=== PATIENT | male | born 1945 | race American Indian/Alaskan Native ===

== ENCOUNTER 2017-06-13 09:52 | Inpatient (IN) | payer MEDICARE ==
[2017-06-07 08:30] VITALS: BMI 20.5
--- NOTE | 2017-06-13 10:46 | CP.PCM.HP ---
History of Present Illness - History of Present Illness History of Present Illness: 71M s/p left TKR [address] Abbott, patient had acute hemarthrosis with INR 9.0, likely developed sepsis, and now has radiographic evidence of loosening. Plan is for removal of prosthesis, biopsy, and implantation of spacer. Present on Admission - Present on Admission Any Indicators Present on Admission: Yes History of DVT/PE: Yes - Notes: Notes:: PE in november, on coumadin Review of Systems - Review of Systems All systems: reviewed and no additional remarkable complaints except - Musculoskeletal Musculoskeletal: As Per HPI Past Patient History - Past Medical History & Family History Past Medical History?: Yes Past Family History: Reviewed and not pertinent - Past Social History Smoking Status: Never Smoked - CARDIAC Hx Cardiac Disorders: Yes Hx Congestive Heart Failure: Yes (2002) Hx Peripheral Edema: Yes - PULMONARY Hx Respiratory Disorders: Yes (pulmonary hypertension) Hx Pneumonia: Yes (aug 2016) - NEUROLOGICAL Hx Neurological Disorder: Yes Hx Dizziness: Yes Hx Meningitis: Yes (1999) - HEENT Hx HEENT Problems: Yes Hx Cataracts: Yes (bilat iol) - RENAL Hx Chronic Kidney Disease: No - ENDOCRINE/METABOLIC Hx Endocrine Disorders: No - HEMATOLOGICAL/ONCOLOGICAL Hx Blood Disorders: Yes Hx Blood Transfusions: Yes Hx Blood Transfusion Reaction: No Hx Sickle Cell Disease: Yes - INTEGUMENTARY Hx Dermatological Problems: No - MUSCULOSKELETAL/RHEUMATOLOGICAL Hx Musculoskeletal Disorders: Yes Hx Osteoarthritis: Yes - GASTROINTESTINAL Hx Gastrointestinal Disorders: No - GENITOURINARY/GYNECOLOGICAL Hx Genitourinary Disorders: No - PSYCHIATRIC Hx Psychophysiologic Disorder: No - SURGICAL HISTORY Hx Surgeries: Yes Hx Cataract Extraction: Yes Hx Cardiac Catheterization: Yes Hx Herniorrhaphy: Yes (left ing) Hx Joint Replacement: Yes (left knee) Other/Comment: cochlear implant left ear - ANESTHESIA Hx Anesthesia: Yes Hx Anesthesia Reactions: No Hx Malignant Hyperthermia: No Has any member of the family had a problem w/ anesthesia?: No Meds Allergies/Adverse Reactions: Allergies Allergy/AdvReac Type Severity Reaction Status Date / Time cephalexin [From Keflex] Allergy Intermediate ITCHING Verified 06/07/17 08:31 Physical Exam - Constitutional Appears: Well, No Acute Distress - Back Exam Additional comments: Left knee: + effusion skin intact no erythema +ROm ankle/toes +DP/PT pulses Results - Impressions Impression: labs and clearance med/cardio on chart, reviewed Assessment & Plan (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
[2017-06-13 11:29] LABS: INR 1.3
[2017-06-13] MEDS ORDERED: Lactated Ringer's 1,000 ML IV ONE ×3 (11:48→19:01)
[2017-06-13] MEDS ORDERED: Propofol 10 mg/ml Inj (20 ML) ONE (11:49)
[2017-06-13] MEDS ORDERED: Midazolam 2 MG/2 ML VIAL ONE ×2 (11:49→12:02)
[2017-06-13] MEDS: Bacitracin 150,000 UNIT in Sodium Chloride 0.9% Irrig 3,000 ML IR SCH (12:00)
[2017-06-13] MEDS ORDERED: Etomidate 20 mg/10ml Inj IV ONE (12:02)
[2017-06-13] MEDS ORDERED: Succinylcholine Chloride 20 mg/ml Syr (5 ml) IV ONE (12:02)
[2017-06-13] MEDS ORDERED: Phenylephrine 10 mg/ml Inj ONE (12:02)
[2017-06-13] MEDS ORDERED: Vancomycin 1 gm/D5W 200 ml 1 GM/200 ML BAG IVPB ONE (12:20)
[2017-06-13] MEDS ORDERED: Rocuronium 10 mg/ml (5 ml) ONE (12:20)
[2017-06-13] MEDS ORDERED: Vancomycin 1 g Inj ONE ×4 (12:26→13:09)
[2017-06-13] MEDS ORDERED: Tobramycin 1.2 gm Inj ONE ×2 (12:27→13:08)
[2017-06-13] MEDS ORDERED: Bupivacaine Liposomal Inj 20 ml INJ ONE (12:30)
[2017-06-13 13:09] LABS: FLUID TYPE SYNOVIAL FLUID
[2017-06-13] MEDS ORDERED: Sodium Chloride 0.9% 60 ML IV ONE (13:47)
[2017-06-13] MEDS ORDERED: Esmolol 100 mg/10ml Inj IV ONE (13:58)
[2017-06-13] MEDS ORDERED: Bupivacaine 0.5% Inj(30mL) ONE (14:50)
[2017-06-13] MEDS ORDERED: Thrombin Topical 20,000 Intl Units Spray Kit TOP ONE (14:57)
[2017-06-13] MEDS ORDERED: Neostigmine Methylsulfate 3mg/3ml Syringe IV ONE (15:29)
--- NOTE | 2017-06-13 16:20 | PCM.SURG1 ---
Surgeon's Initial Post Op Note - Surgeon's Notes Surgeon: Zuri Abbott MD Tank Officer: Darryl Rebollar PA-C Type of Anesthesia: General Endo Anesthesia Administered By: Dr. Balderrama Pre-Operative Diagnosis: Left knee prosthetic joint infection Operative Findings: 5 WBC per HPF tissue specimen. fluid cell count and gram stain done intra op. tourniquet 131min @300mmHg Post-Operative Diagnosis: same Operation Performed: explant of left knee prosthesis. implantation of antibiotic spacer. wound vac application Specimen/Specimens Removed: tissue cultures. fluid cultures. lab called to add fungal cultures Estimated Blood Loss: EBL {In ML}: 250 Blood Products Given: N/A Drains Used: Hemovac Post-Op Condition: Fair Date of Surgery/Procedure: 06/13/17 Time of Surgery/Procedure: 16:39
[2017-06-13] MEDS ORDERED: Morphine Monoject Barrel PCA 1mg/ml IV PRN (16:21)
[2017-06-13] MEDS ORDERED: HYDROmorphone 0.5 mg/0.5 ml ISec IVP PRN ×2 (16:23→16:28)
[2017-06-13 16:54] LABS: HEMATOCRIT 24.6 % (35.0-51.0)
--- NOTE | 2017-06-13 17:29 | CP.PCM.CON ---
History of Present Illness - History of Present Illness History of Present Illness: INFECTIOUS DISEASE CONSULT; HPI; 71-year-old male with history of CHF, PHT,,ASHD, OA, HISTORY OF LEFT TKR 5 YEARS AGO, with history of PE in November 2016, admitted at [facility] on by Dr. Cedillo for removal of left knee prosthesis, biopsy and implantation of spacer. Patient has history of PE in , and was placed on anticoagulation and he developed acute hemarthrosis with INR of 9.0 as reported and likely developed sepsis. Patient presently now has evidence of loosening off his prosthesis and was admitted for removal OF INFECTED PROSTHESIS Patient is POST-OPT 06/13/17 with explantation of left knee prosthesis and placement off antibiotic spacer and wound VAC. Synovial fluid aspirate in OR was consistent WBC of more than 15,000 with 93% neutrophils, and many RBCs. Gram stain showed many WBCs with the yeast positive in the synovial. Fluid aspirate. Infectious disease consultation requested by Dr. Cedillo for evaluation of LT. KNEE PROSTHETIC JOINT INFECTION. CONCERN FOR ? FUNGAL SUPERINFECTION. PATIENT RECEIVED 1 DOSE OF VANCOMYCIN 1 G IN THE OR AND PRESENTLY GETTING 1 G EVERY 12 HOURLY. PAST MEDICAL HISTORY; ABOVE. PSH; BILATERAL CATARACT SURGERY, COCHLEAR IMPLANT LEFT EAR, LEFT TOTAL KNEE REPLACEMENT 5 YEARS AGO. FAMILY HISTORY; NONCONTRIBUTORY MEDS; SEE MARS. ALLERGY. CEPHALEXIN. SOCIAL HISTORY; DENIES SMOKING OR DRINKING. Review of Systems - Constitutional Constitutional: absent: Fever - EENT Nose/Mouth/Throat: Dry Mouth - Cardiovascular Cardiovascular: absent: Chest Pain, Dyspnea - Respiratory Respiratory: absent: Cough - Gastrointestinal Gastrointestinal: absent: Abdominal Pain, Nausea, Vomiting - Genitourinary Genitourinary: absent: Hematuria, Freq UTI - Neurological Neurological: Abnormal Hearing (HISTORY OF LEFT COCHLEAR IMPLANT.) - Hematologic/Lymphatic Hematologic: As Per HPI. absent: Easy Bleeding, Easy Bruising Past Patient History - Past Medical History & Family History Past Medical History?: Yes Past Family History: Reviewed and not pertinent - Past Social History Smoking Status: Never Smoked - CARDIAC Hx Cardiac Disorders: Yes Hx Congestive Heart Failure: Yes (2002) Hx Peripheral Edema: Yes - PULMONARY Hx Respiratory Disorders: Yes (pulmonary hypertension) Hx Pneumonia: Yes (aug 2016) - NEUROLOGICAL Hx Neurological Disorder: Yes Hx Dizziness: Yes Hx Meningitis: Yes (1999) - HEENT Hx HEENT Problems: Yes Hx Cataracts: Yes (bilat iol) - RENAL Hx Chronic Kidney Disease: No - ENDOCRINE/METABOLIC Hx Endocrine Disorders: No - HEMATOLOGICAL/ONCOLOGICAL Hx Blood Disorders: Yes Hx Blood Transfusions: Yes Hx Blood Transfusion Reaction: No Hx Sickle Cell Disease: Yes - INTEGUMENTARY Hx Dermatological Problems: No - MUSCULOSKELETAL/RHEUMATOLOGICAL Hx Musculoskeletal Disorders: Yes Hx Osteoarthritis: Yes - GASTROINTESTINAL Hx Gastrointestinal Disorders: No - GENITOURINARY/GYNECOLOGICAL Hx Genitourinary Disorders: No - PSYCHIATRIC Hx Psychophysiologic Disorder: No - SURGICAL HISTORY Hx Surgeries: Yes Hx Cataract Extraction: Yes Hx Cardiac Catheterization: Yes Hx Herniorrhaphy: Yes (left ing) Hx Joint Replacement: Yes (left knee) Other/Comment: cochlear implant left ear - ANESTHESIA Hx Anesthesia: Yes Hx Anesthesia Reactions: No Hx Malignant Hyperthermia: No Has any member of the family had a problem w/ anesthesia?: No Meds Allergies/Adverse Reactions: Allergies Allergy/AdvReac Type Severity Reaction Status Date / Time cephalexin [From Keflex] Allergy Intermediate ITCHING Verified 06/07/17 08:31 - Medications Medications: Current Medications Acetaminophen (Tylenol 325mg Tab) 650 mg PO Q4 PRN PRN Reason: Fever 101 degrees fahrenheit Docusate Sodium (Colace) 100 mg PO BID [facility] Enoxaparin Sodium (Lovenox) 40 mg SC DAILY [facility] Furosemide (Lasix) 20 mg PO DAILY [facility] Home Med (Bosentan [Tracleer]) 125 mg PO BID [facility] Hydromorphone HCl (Dilaudid) 0.5 mg IVP Q5M PRN PRN Reason: Pain, severe (8-10) Stop: 06/13/17 18:23 Last Admin: 06/13/17 17:02 Dose: 0.5 mg Hydromorphone HCl (Dilaudid) 0.5 mg IVP Q4H PRN PRN Reason: Pain, severe (8-10) Sodium Chloride (Sodium Chloride 0.9%) 1,000 mls @ 80 mls/hr IV .[id number] [facility] Vancomycin/Sodium Chloride (Vancomycin 1 Gm/Ns 200 Ml) 1 gm in 200 mls @ 200 mls/hr IVPB Q12H [facility] Stop: 06/19/17 02:01 Micafungin Sodium 100 mg/ (Sodium Chloride) 100 mls @ 100 mls/hr IV Q24H [facility] Aztreonam 1 gm/ Sodium (Chloride) 100 mls @ 100 mls/hr IVPB Q12H [facility] Morphine Sulfate/Sodium Chloride (Morphine [place]oo Monoject Barrel) 30 mg IV Q4H PRN; Protocol PRN Reason: Pain, severe (8-10) Stop: 06/14/17 16:21 Ondansetron HCl (Zofran Inj) 4 mg IVP ONCE PRN PRN Reason: Nausea/Vomiting Stop: 06/13/17 18:25 Oxycodone/Acetaminophen (Percocet 5/325 Mg Tab) 1 tab PO Q4 PRN PRN Reason: Pain, moderate (4-7) Stop: 06/16/17 16:29 Warfarin Sodium (Coumadin) 5 mg PO 1800 [facility] Stop: 06/13/17 18:01 Physical Exam - Constitutional Appears: Well (left knee/leg in soft cast+ve michelle), No Acute Distress - Head Exam Head Exam: NORMAL INSPECTION - Eye Exam Eye Exam: PERRL - ENT Exam ENT Exam: Normal Oropharynx - Respiratory Exam Respiratory Exam: Clear to Auscultation Bilateral - Cardiovascular Exam Cardiovascular Exam: REGULAR RHYTHM, +S1, +S2 - GI/Abdominal Exam GI & Abdominal Exam: Normal Bowel Sounds, Soft - Extremities Exam Extremities exam: Positive for: normal capillary refill, pedal pulses present. Negative for: calf tenderness Additional comments: left knee and leg in softcast +ve wound vac - Neurological Exam Neurological exam: Altered (drowsy) - Skin Skin Exam: Dry, Warm Results - Vital Signs Recent Vital Signs: Last Vital Signs Temp 97 F L 06/13/17 10:09 Pulse 86 06/13/17 10:09 Resp 16 06/13/17 10:09 BP 97/59 L 06/13/17 10:09 Pulse Ox 97 06/13/17 10:09 - Labs Result Diagrams: 06/13/17 17:59 Labs: Laboratory Results - last 24 hr 06/13/17 06/13/17 06/13/17 11:09 11:09 13:06 Hgb Hct PT 14.8 H INR 1.3 Fluid Type Synovial fluid Synovial WBC 86319.0 H Synovial RBC 37477.0 H Synovial Neutrophils 93.0 H Synovial Lymphocytes 2.0 H Synov Monos/Macrophage 3 H Synovial Fluid Comment TEST NOT PERFORMED Blood Type O POSITIVE Antibody Screen Negative 06/13/17 16:45 Hgb 8.2 L Hct 24.6 L PT INR Fluid Type Synovial WBC Synovial RBC Synovial Neutrophils Synovial Lymphocytes Synov Monos/Macrophage Synovial Fluid Comment Blood Type Antibody Screen Assessment & Plan (1) Infection of prosthetic left knee joint Assessment and Plan: S/P EXPLANTATION OF LEFT KNEE PROSTHESIS, IMPLANTATION OF ANTIBIOTIC SPACER, WOUND VAC 06/13/17. synovial fluid wbc's 15,318, 93% neutrophils .RBCs 77,990. Gram stain synovial fluid aspirated; many WBCs, yeast positive. Pancultures esr crp. Liver profile, CBC, BMP in a.m. Continue IV Vanco 1 g every 12 hourly 06/13/17. Add IV Mycamine 100 mg IV piggyback every 24 hourly.06/13/17 Add IV Azactam 1 g every 12 hourly for gram-negative coverage for now. 06/13/17. Follow-up Vanco trough prior to the fourth dose in a.m. and keep between 10 and 20. follow-up renal functions closely. Follow-up cultures to adjust antibiotics and antifungals. Case discussed with with ms Brenda Phipps-orthopedic staff. Status: Acute (2) PHT (pulmonary hypertension) Status: Acute (3) Osteoarthritis Status: Acute
[2017-06-13] MEDS ORDERED: BOSENTAN 125 MG PO SCH (18:00)
[2017-06-13 18:19] LABS: BASO % 0.4 % (0.0-2.0); EOS # 0.3 K/uL (0.0-0.7); EOS % 3.5 % (0.0-4.0); HEMATOCRIT 24.5 % (35.0-51.0); LYMPH # 2.3 K/uL (1.0-4.3); LYMPH % 30.2 % (20.0-40.0); MEAN CELL VOLUME 72.9 fL (80.0-94.0); MEAN CORPUSCULAR HEMOGLOBIN 24.5 pg (27.0-31.0); MEAN CORPUSCULAR HGB CONC 33.6 g/dL (33.0-37.0); MEAN PLATELET VOLUME 8.7 fL (7.2-11.7); MONO # 0.5 K/uL (0.0-0.8); MONO % 6.7 % (0.0-10.0); NRBC % 0.6 % (0.0-2.0); RED CELL DISTRIBUTION WIDTH 25.4 % (11.5-14.5)
[2017-06-13 18:20] LABS: WHITE BLOOD COUNT 7.5 K/uL (4.8-10.8)
[2017-06-13 18:33] LABS: ALB/GLOB RATIO 1.1 (1.0-2.1); BILIRUBIN,DIRECT 0.3 mg/dL (0.0-0.4); TOTAL PROTEIN 6.4 g/dL (6.3-8.3)
[2017-06-13] MEDS: Micafungin 100 MG in Sodium Chloride 0.9% 100 ML IV SCH (19:05)
[2017-06-13] MEDS: Aztreonam 1 GM in Sodium Chloride 0.9% 100 ML IVPB SCH (19:50)
[2017-06-13] MEDS ORDERED: Sodium Chloride 0.9% 500 ML IV ONE (20:42)
[2017-06-13] MEDS: Sodium Chloride 0.9% 1,000 ML IV SCH (21:20)
--- NOTE | 2017-06-13 22:10 | CP.PCM.CON ---
<Miriam Harrington - Last Filed: 06/13/17 23:04> History of Present Illness - History of Present Illness History of Present Illness: HPI: 71 year old male with PMHx of CHF and pulmonary hypertension is status- post removal of infected left knee replacement. Medicine team is consulted due to post-operative tachycardia and hypotension. During procedure, it is estimated he lost 250cc of blood. Patient states he feels very "sleepy." Patient states his current pain is 8 out of 10. Patient denies chest pain, shortness of breath, abdominal pain, fever or chills. Ortho: Dr. Abbott PMHx: Pulmonary Hypertension, CHF PSH: Prostectomy (2002), Left knee replacement (2011) Allergies: Cephalexin Medications: Coumadin 7.5mg PO, Tadalafil 20mg PO, Bosentan 125mg PO BID, Lasix 20mg PO Social HX; . Former smoker quit in 1998. Smoked for about 34 years about 1/2 pack per day. Denies alcohol and illicit drug use. Review of Systems - Constitutional Constitutional: absent: Chills, Headache - Cardiovascular Cardiovascular: absent: Chest Pain, Dyspnea, Lightheadedness, Palpitations, Pedal Edema - Respiratory Respiratory: absent: Dyspnea, Wheezing - Gastrointestinal Gastrointestinal: absent: Constipation, Diarrhea, Nausea, Vomiting - Musculoskeletal Musculoskeletal: Other (left knee pain ). absent: Numbness, Stiffness, Tingling - Neurological Neurological: absent: Dizziness, Weakness Past Patient History - Past Medical History & Family History Past Medical History?: Yes Past Family History: Reviewed and not pertinent - Past Social History Smoking Status: Never Smoked - CARDIAC Hx Cardiac Disorders: Yes Hx Congestive Heart Failure: Yes (2002) Hx Peripheral Edema: Yes - PULMONARY Hx Respiratory Disorders: Yes (pulmonary hypertension) Hx Pneumonia: Yes (aug 2016) - NEUROLOGICAL Hx Neurological Disorder: Yes Hx Dizziness: Yes Hx Meningitis: Yes (1999) - HEENT Hx HEENT Problems: Yes Hx Cataracts: Yes (bilat iol) - RENAL Hx Chronic Kidney Disease: No - ENDOCRINE/METABOLIC Hx Endocrine Disorders: No - HEMATOLOGICAL/ONCOLOGICAL Hx Blood Disorders: Yes Hx Blood Transfusions: Yes Hx Blood Transfusion Reaction: No Hx Sickle Cell Disease: Yes - INTEGUMENTARY Hx Dermatological Problems: No - MUSCULOSKELETAL/RHEUMATOLOGICAL Hx Musculoskeletal Disorders: Yes Hx Osteoarthritis: Yes - GASTROINTESTINAL Hx Gastrointestinal Disorders: No - GENITOURINARY/GYNECOLOGICAL Hx Genitourinary Disorders: No - PSYCHIATRIC Hx Psychophysiologic Disorder: No - SURGICAL HISTORY Hx Surgeries: Yes Hx Cataract Extraction: Yes Hx Cardiac Catheterization: Yes Hx Herniorrhaphy: Yes (left ing) Hx Joint Replacement: Yes (left knee) Other/Comment: cochlear implant left ear - ANESTHESIA Hx Anesthesia: Yes Hx Anesthesia Reactions: No Hx Malignant Hyperthermia: No Has any member of the family had a problem w/ anesthesia?: No Meds Allergies/Adverse Reactions: Allergies Allergy/AdvReac Type Severity Reaction Status Date / Time cephalexin [From Keflex] Allergy Intermediate ITCHING Verified 06/07/17 08:31 - Medications Medications: Current Medications Acetaminophen (Tylenol 325mg Tab) 650 mg PO Q4 PRN PRN Reason: Fever 101 degrees fahrenheit Docusate Sodium (Colace) 100 mg PO BID [facility] Enoxaparin Sodium (Lovenox) 40 mg SC DAILY [facility] Furosemide (Lasix) 20 mg PO DAILY [facility] Home Med (Bosentan [Tracleer]) 125 mg PO BID [facility] Hydromorphone HCl (Dilaudid) 0.5 mg IVP Q4H PRN PRN Reason: Pain, severe (8-10) Sodium Chloride (Sodium Chloride 0.9%) 1,000 mls @ 80 mls/hr IV .[id number] [facility] Last Admin: 06/13/17 21:20 Dose: 0 mls Vancomycin/Sodium Chloride (Vancomycin 1 Gm/Ns 200 Ml) 1 gm in 200 mls @ 200 mls/hr IVPB Q12H [facility] Stop: 06/19/17 02:01 Micafungin Sodium 100 mg/ (Sodium Chloride) 100 mls @ 100 mls/hr IV Q24H [facility] Last Admin: 06/13/17 19:05 Dose: 100 mls Aztreonam 1 gm/ Sodium (Chloride) 100 mls @ 100 mls/hr IVPB Q12H [facility] Last Admin: 06/13/17 19:50 Dose: 100 mls Morphine Sulfate/Sodium Chloride (Morphine Tire Mechanic Monoject Barrel) 30 mg IV Q4H PRN; Protocol PRN Reason: Pain, severe (8-10) Stop: 06/14/17 16:21 Oxycodone/Acetaminophen (Percocet 5/325 Mg Tab) 1 tab PO Q4 PRN PRN Reason: Pain, moderate (4-7) Stop: 06/16/17 16:29 Physical Exam - Constitutional Appears: No Acute Distress, Cachectic - Head Exam Head Exam: ATRAUMATIC, NORMAL INSPECTION, NORMOCEPHALIC - Eye Exam Eye Exam: EOMI, Normal appearance, PERRL Pupil Exam: NORMAL ACCOMODATION - ENT Exam ENT Exam: Mucous Membranes Moist - Respiratory Exam Respiratory Exam: Clear to Auscultation Bilateral, NORMAL BREATHING PATTERN. absent: Rales, Rhonchi, Wheezes - Cardiovascular Exam Cardiovascular Exam: REGULAR RHYTHM, RRR, +S1, +S2. absent: JVD - GI/Abdominal Exam GI & Abdominal Exam: Normal Bowel Sounds, Soft. absent: Tenderness - Extremities Exam Extremities exam: Negative for: pedal edema Additional comments: s/p right hip replacement removed - Neurological Exam Neurological exam: Alert, Oriented x3 - Psychiatric Exam Psychiatric exam: Flat Affect - Skin Skin Exam: Dry, Intact, Normal Color, Warm Results - Vital Signs Recent Vital Signs: Last Vital Signs Temp 98.9 F 06/13/17 20:00 Pulse 119 H 06/13/17 20:45 Resp 11 L 06/13/17 20:45 BP 110/69 06/13/17 20:45 Pulse Ox 97 06/13/17 20:45 - Labs Result Diagrams: 06/13/17 17:59 Labs: Laboratory Results - last 24 hr 06/13/17 06/13/17 06/13/17 11:09 11:09 13:06 WBC RBC Hgb Hct MCV MCH MCHC RDW Plt Count MPV Neut % (Auto) Lymph % (Auto) [place] % (Auto) Eos % (Auto) Baso % (Auto) Neut # Lymph # [place] # Eos # Baso # PT 14.8 H INR 1.3 Total Bilirubin Direct Bilirubin AST ALT Alkaline Phosphatase Total Protein Albumin Globulin Albumin/Globulin Ratio Fluid Type Synovial fluid Synovial WBC 40357.0 H Synovial RBC 61022.0 H Synovial Neutrophils 93.0 H Synovial Lymphocytes 2.0 H Synov Monos/Macrophage 3 H Synovial Fluid Comment TEST NOT PERFORMED Blood Type O POSITIVE Antibody Screen Negative 06/13/17 06/13/17 06/13/17 16:45 17:59 18:00 WBC 7.5 RBC 3.37 L Hgb 8.2 L 8.2 L Hct 24.6 L 24.5 L MCV 72.9 L MCH 24.5 L MCHC 33.6 RDW 25.4 H Plt Count 206 MPV 8.7 Neut % (Auto) 59.2 Lymph % (Auto) 30.2 [place] % (Auto) 6.7 Eos % (Auto) 3.5 Baso % (Auto) 0.4 Neut # 4.4 Lymph # 2.3 [place] # 0.5 Eos # 0.3 Baso # 0.0 PT INR Total Bilirubin 1.0 Direct Bilirubin 0.3 AST 40 ALT 28 Alkaline Phosphatase 96 Total Protein 6.4 Albumin 3.3 L Globulin 3.1 Albumin/Globulin Ratio 1.1 Fluid Type Synovial WBC Synovial RBC Synovial Neutrophils Synovial Lymphocytes Synov Monos/Macrophage Synovial Fluid Comment Blood Type Antibody Screen Assessment & Plan - Assessment and Plan (Free Text) Assessment: 1.) Tachycardia (120s) - EKG: Sinus Tachycardia - 1 bolus given 2.)History of CHF - Lasix 20mg PO daily 3.) History of pulomary hypertension - Bosentan 125mg PO BID - Home medication: Tadalafil 20mg PO daily 4.) s/p knee replacement removed - Colace - Dilaudid - Percocet - [employer]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 5.) Infection of prosthetic left knee joint - Acetominophen - Vancomycin - Micafungin - Aztreonam <Sergio Cervantes - Last Filed: 06/14/17 06:14> Meds - Medications Medications: Current Medications Acetaminophen (Tylenol 325mg Tab) 650 mg PO Q4 PRN PRN Reason: Fever 101 degrees fahrenheit Docusate Sodium (Colace) 100 mg PO BID [facility] Enoxaparin Sodium (Lovenox) 40 mg SC DAILY [facility] Furosemide (Lasix) 20 mg PO DAILY [facility] Home Med (Bosentan [Tracleer]) 125 mg PO BID [facility] Hydromorphone HCl (Dilaudid) 0.5 mg IVP Q4H PRN PRN Reason: Pain, severe (8-10) Sodium Chloride (Sodium Chloride 0.9%) 1,000 mls @ 80 mls/hr IV .[id number] [facility] Last Admin: 06/14/17 04:37 Dose: Not Given Vancomycin/Sodium Chloride (Vancomycin 1 Gm/Ns 200 Ml) 1 gm in 200 mls @ 200 mls/hr IVPB Q12H [facility] Stop: 06/19/17 02:01 Last Admin: 06/14/17 04:32 Dose: 200 mls/hr Micafungin Sodium 100 mg/ (Sodium Chloride) 100 mls @ 100 mls/hr IV Q24H [facility] Last Admin: 06/13/17 19:05 Dose: 100 mls Aztreonam 1 gm/ Sodium (Chloride) 100 mls @ 100 mls/hr IVPB Q12H [facility] Last Admin: 06/14/17 05:59 Dose: 100 mls/hr Morphine Sulfate/Sodium Chloride (Morphine Tire Mechanic Monoject Barrel) 30 mg IV Q4H PRN; Protocol PRN Reason: Pain, severe (8-10) Stop: 06/14/17 16:21 Oxycodone/Acetaminophen (Percocet 5/325 Mg Tab) 1 tab PO Q4 PRN PRN Reason: Pain, moderate (4-7) Stop: 06/16/17 16:29 Pneumococcal Polyvalent Vaccine (Pneumovax 23 Vaccine) 0.5 ml IM .ONCE ONE Stop: 06/15/17 10:01 Results - Vital Signs Recent Vital Signs: Last Vital Signs Temp 98.2 F 06/14/17 04:35 Pulse 121 H 06/14/17 04:35 Resp 20 06/14/17 04:35 BP 90/54 L 06/14/17 04:35 Pulse Ox 94 L 06/13/17 23:55 - Labs Result Diagrams: 06/13/17 17:59 Labs: Laboratory Results - last 24 hr 06/13/17 06/13/17 06/13/17 11:09 11:09 13:06 WBC RBC Hgb Hct MCV MCH MCHC RDW Plt Count MPV Neut % (Auto) Lymph % (Auto) [place] % (Auto) Eos % (Auto) Baso % (Auto) Neut # Lymph # [place] # Eos # Baso # PT 14.8 H INR 1.3 Total Bilirubin Direct Bilirubin AST ALT Alkaline Phosphatase Total Protein Albumin Globulin Albumin/Globulin Ratio Urine Color Urine Clarity Urine pH Ur Specific [place] Urine Protein Urine Glucose (UA) Urine Ketones Urine Blood Urine Nitrate Urine Bilirubin Urine Urobilinogen Ur Leukocyte Esterase Urine WBC (Auto) Urine RBC (Auto) Urine Bacteria Fluid Type Synovial fluid Synovial WBC 27420.0 H Synovial RBC 11109.0 H Synovial Neutrophils 93.0 H Synovial Lymphocytes 2.0 H Synov Monos/Macrophage 3 H Synovial Fluid Comment TEST NOT PERFORMED Blood Type O POSITIVE Antibody Screen Negative 06/13/17 06/13/17 06/13/17 16:45 17:59 18:00 WBC 7.5 RBC 3.37 L Hgb 8.2 L 8.2 L Hct 24.6 L 24.5 L MCV 72.9 L MCH 24.5 L MCHC 33.6 RDW 25.4 H Plt Count 206 MPV 8.7 Neut % (Auto) 59.2 Lymph % (Auto) 30.2 [place] % (Auto) 6.7 Eos % (Auto) 3.5 Baso % (Auto) 0.4 Neut # 4.4 Lymph # 2.3 [place] # 0.5 Eos # 0.3 Baso # 0.0 PT INR Total Bilirubin 1.0 Direct Bilirubin 0.3 AST 40 ALT 28 Alkaline Phosphatase 96 Total Protein 6.4 Albumin 3.3 L Globulin 3.1 Albumin/Globulin Ratio 1.1 Urine Color Urine Clarity Urine pH Ur Specific [place] Urine Protein Urine Glucose (UA) Urine Ketones Urine Blood Urine Nitrate Urine Bilirubin Urine Urobilinogen Ur Leukocyte Esterase Urine WBC (Auto) Urine RBC (Auto) Urine Bacteria Fluid Type Synovial WBC Synovial RBC Synovial Neutrophils Synovial Lymphocytes Synov Monos/Macrophage Synovial Fluid Comment Blood Type Antibody Screen 06/13/17 23:01 WBC RBC Hgb Hct MCV MCH MCHC RDW Plt Count MPV Neut % (Auto) Lymph % (Auto) [place] % (Auto) Eos % (Auto) Baso % (Auto) Neut # Lymph # [place] # Eos # Baso # PT INR Total Bilirubin Direct Bilirubin AST ALT Alkaline Phosphatase Total Protein Albumin Globulin Albumin/Globulin Ratio Urine Color Yellow Urine Clarity Hazy Urine pH 5.0 Ur Specific [place] 1.009 Urine Protein Negative Urine Glucose (UA) Normal Urine Ketones Negative Urine Blood 3+ H Urine Nitrate Negative Urine Bilirubin Negative Urine Urobilinogen Normal Ur Leukocyte Esterase 1+ H Urine WBC (Auto) 10 H Urine RBC (Auto) 63 H Urine Bacteria Occ H Fluid Type Synovial WBC Synovial RBC Synovial Neutrophils Synovial Lymphocytes Synov Monos/Macrophage Synovial Fluid Comment Blood Type Antibody Screen Assessment & Plan - Date & Time Date: 06/14/17 (I have seen and examined the patient. I agree with the findings and plan of care as documented by Dr. Harrington. Patient s/p knee prosthetic removal due to infection. On Vanco, micafungin, and Aztreonam. Also with tachycardia. Monitor on tele. Repeat EKG. Blood pressure within normal limits. Continue home meds for history of pulmonary hypertension and history of CHF. Monitor for acute changes.) Time: 06:11 Attending/Attestation - Attestation I have personally seen and examined this patient.: Yes I have fully participated in the care of the patient.: Yes I have reviewed all pertinent clinical information: Yes
[2017-06-13 23:09] LABS: RBC URINE 63 /hpf (0-3); URINE BACTERIA OCC (<OCC); URINE BILIRUBIN NEGATIVE (NEGATIVE); URINE BLOOD 3+ (NEGATIVE); URINE COLOR Yellow (YELLOW); URINE GLUCOSE (UA) NORMAL (Normal); URINE KETONE NEGATIVE (NEGATIVE); URINE LEUKOCYTE ESTERASE 1+ Leu/uL (Negative); URINE PROTEIN NEGATIVE (NEGATIVE); URINE UROBILINOGEN NORMAL mg/dL (0.2-1.0); WBC URINE 10 /hpf (0-5)
--- NOTE | 2017-06-14 00:25 | OP ---
PROCEDURE DATE: 06/13/2017 PREOPERATIVE DIAGNOSIS: Infected left total knee replacement. POSTOPERATIVE DIAGNOSIS: Infected left total knee replacement. PROCEDURE: Explant of left total knee, irrigation and debridement, and insertion of antibiotic spacer. SURGEON: Seth Abbott MD EMPLOYEE PLACEMENT SPECIALIST: Rodger Gutierrez, physician assistant branch operations manager. Brenda was scrubbed and present throughout the entire case and assisted in patient positioning, retraction, removal of the prior implant as well as wound closure. TYPE OF ANESTHESIA: General. COMPLICATIONS: None. ESTIMATED BLOOD LOSS: 250 mL. INDICATIONS FOR THE PROCEDURE: This is a 71-year-old gentleman who approximately five years ago underwent a left total knee replacement. The patient did well postoperatively. Approximately a few months ago, the patient who was chronically on Coumadin was admitted to the hospital with an INR of 9. He subsequently developed a large hematoma in the left knee. This was aspirated. The cultures were negative; however, the patient had persistent pain and swelling about the left knee. Radiographically, the patient was feeling some evidence of loosening, and recommendations were for explant of the hardware, irrigation and debridement, and insertion of an antibiotic spacer for a later staged revision. The risks, benefits and alternatives of the procedures were discussed with the patient, and informed consent was obtained. DESCRIPTION OF PROCEDURE: After the surgical site was finally verified in the preoperative holding area, the patient was taken to the operating room and placed supine on the operating table. After administration of general anesthesia, Ahmadi catheter was inserted. A tourniquet was placed about the left thigh. Care was taken to make sure all bony prominences and nerves were well padded and protected. A VA9 boot was placed on the nonoperative extremity, and the left lower extremity was prepped and draped in usual sterile fashion. Previous incision was re-incised and soft tissue was dissected sharply down to the knee joint. Medial parapatellar arthrotomy was performed. Some fluid was noted and this was aspirated and passed off for stat Gram stain and cell count. No gross purulence was appreciated. The clip from the previous bearing was removed, and the bearing was removed. Next, there was copious fibrous tissue appreciated, and this was sharply debrided. At this point, using flexible osteotome and an oscillating saw, both the femoral and tibial components were removed. Some blood loss was noted along the lateral aspect of the tibial plateau. At this point, numerous deep tissue cultures were taken and passed off the field. Two frozen soft tissue sections were also sent off. The result of the first one showed 0 neutrophils. The result of the second one showed greater than 5 neutrophils per high powered field. At this point, a decision was made to do staged revision and insert the antibiotic spacer. Any nonviable-appearing tissue was then debrided. Any cement debris was also removed. Satisfied that the knee joint had been adequately debrided, the knee joint was pulse lavaged with 6 L of antibiotic saline solution. At this point, on the back table, the antibiotic spacer was made, and once this was done, the antibiotic spacer was then cemented onto the distal femur and tibial plateau. Once the cement was hardened, the tourniquet was deflate,d and any obvious bleeding was cauterized. At this point, a medium Hemovac drain was inserted, and arthrotomy was closed using #1 Vicryl suture. Subcutaneous tissue was closed using 2-0 Vicryl suture, and the skin was closed using thierno. A ALISTAIR wound VAC dressing was placed. A Najera dressing was also applied and a knee immobilizer was placed. The patient was awakened from the procedure, taken to the recovery room in stable condition. Seth Abbott MD
[2017-06-14] MEDS: Vancomycin 1 gm/NS 200 ml 1 GM/200 ML BAG IVPB SCH (04:32)
[2017-06-14] MEDS: Sodium Chloride 0.9% 1,000 ML IV SCH (04:37)
[2017-06-14] MEDS: Aztreonam 1 GM in Sodium Chloride 0.9% 100 ML IVPB SCH ×2 (05:59→19:20)
[2017-06-14] MEDS ORDERED: Sodium Chloride 0.9% 500 ML IV ONE (06:23)
[2017-06-14 07:31] LABS: HEMATOCRIT 22.2 % (35.0-51.0); MEAN CELL VOLUME 73.4 fL (80.0-94.0); MEAN CORPUSCULAR HEMOGLOBIN 25.1 pg (27.0-31.0); MEAN CORPUSCULAR HGB CONC 34.3 g/dL (33.0-37.0); MEAN PLATELET VOLUME 8.7 fL (7.2-11.7); RED CELL DISTRIBUTION WIDTH 23.7 % (11.5-14.5); WHITE BLOOD COUNT 9.1 K/uL (4.8-10.8)
[2017-06-14 07:32] LABS: INR 1.5
[2017-06-14] MEDS ORDERED: Sodium Chloride 0.9% 1,000 ML IV ONE (07:42)
[2017-06-14 08:09] LABS: CHLORIDE 106 mmol/L (98-107); SODIUM 138 mmol/L (132-148)
[2017-06-14 08:10] LABS: POTASSIUM 3.9 mmol/L (3.6-5.2)
[2017-06-14 08:12] LABS: ALB/GLOB RATIO 0.7 (1.0-2.1); ALKALINE PHOSPHATASE 82 U/L (38-126); AST/SGOT 42 U/L (17-59); BILIRUBIN,TOTAL 0.9 mg/dL (0.2-1.3); BLOOD UREA NITROGEN 13 mg/dL (9-20); CARBON DIOXIDE 24 mmol/L (22-30); GFR AFRICAN-AMERICAN > 60; GLUCOSE,RANDOM 99 mg/dL (75-110); PHOSPHOROUS 3.6 mg/dL (2.5-4.5); TOTAL PROTEIN 6.9 g/dL (6.3-8.3)
[2017-06-14 08:13] LABS: ALT/SGPT 26 U/L (21-72); CALCIUM 7.8 mg/dl (8.6-10.4); MAGNESIUM 1.6 mg/dL (1.6-2.3)
--- NOTE | 2017-06-14 08:41 | RAD ---
PROCEDURE: Left Knee Radiographs. HISTORY: Pain. COMPARISON: Left knee radiographs 03/06/2012. FINDINGS: BONES: An apparent revision of prior left shoulder replacement hardware has occurred as compared to the prior postoperative left knee radiographs noted above. Prosthetic components isolated only to the distal epiphysis of the distal left femur and proximal left tibia are identified without an intramedullary component as opposed to the prior components which had like the intramedullary components. Surgical drain is identified in the anterior soft tissues with a [id number] suprapatellar bursa effusion identified. Emphysematous postop changes are identified in the local soft tissues as well with skin thierno identified anteriorly once again. No interval fracture subluxation or dislocation. normal. No osteoarthritis. None. OTHER FINDINGS: None. IMPRESSION: Interval total left knee replacement revision with new distal femoral proximal tibial prosthetic components identified in position as discussed above. Postoperative changes are as described above.
--- NOTE | 2017-06-14 08:47 | RAD ---
HISTORY: hx of pneumonia COMPARISON: Chest radiographs 03/10/2012. FINDINGS: LUNGS: Chronic interstitial pulmonary disease appreciate without definite interval alveolitis appreciate this time bilaterally. PLEURA: No significant pleural effusion identified, no pneumothorax apparent. CARDIOVASCULAR: Mild cardiomegaly is appreciated without pulmonary vascular derangement evident grossly. OSSEOUS STRUCTURES: No significant abnormalities. VISUALIZED UPPER ABDOMEN: Inferior vena cava filter placement again evident. OTHER FINDINGS: None. IMPRESSION: Chronic interstitial pulmonary disease without definite acute infiltrate appreciate this time. No pleural effusion or pneumothorax. Cardiomegaly.
[2017-06-14 09:22] LABS: BASO # 0.1 K/uL (0.0-0.2); EOS # 0.1 K/uL (0.0-0.7); LYMPH # 1.3 K/uL (1.0-4.3); MONO # 0.8 K/uL (0.0-0.8)
[2017-06-14] MEDS ORDERED: TADALAFIL 20 MG PO SCH (10:00)
--- NOTE | 2017-06-14 10:31 | CP.PCM.PN ---
Subjective - Date & Time of Evaluation Date of Evaluation: 06/14/17 Time of Evaluation: 10:29 - Subjective Subjective: Pt awake, alert. Afebrile, HR 120's LLE: dressing and immobilizer in place drain in place dressing clean NVI distally Hg 7.6 GS from fluid rare yeast POD#1 ID consulted PIC line monitor H&H follow cultures Objective - Vital Signs/Intake and Output Vital Signs (last 24 hours): Temp Pulse Resp BP Pulse Ox 98.2 F 120 H 20 97/66 L 99 06/14/17 07:25 06/14/17 07:25 06/14/17 07:25 06/14/17 07:25 06/14/17 07:25 Intake and Output: 06/14/17 06/14/17 06:59 18:59 Intake Total 1340 Output Total 1300 730 Balance -1300 610 - Medications Medications: Current Medications Acetaminophen (Tylenol 325mg Tab) 650 mg PO Q4 PRN PRN Reason: Fever 101 degrees fahrenheit Docusate Sodium (Colace) 100 mg PO BID [facility] Enoxaparin Sodium (Lovenox) 40 mg SC DAILY [facility] Furosemide (Lasix) 20 mg PO DAILY [facility] Home Med (Bosentan [Tracleer]) 125 mg PO BID [facility] Hydromorphone HCl (Dilaudid) 0.5 mg IVP Q4H PRN PRN Reason: Pain, severe (8-10) Sodium Chloride (Sodium Chloride 0.9%) 1,000 mls @ 80 mls/hr IV .[id number] [facility] Last Admin: 06/14/17 04:37 Dose: Not Given Vancomycin/Sodium Chloride (Vancomycin 1 Gm/Ns 200 Ml) 1 gm in 200 mls @ 200 mls/hr IVPB Q12H [facility] Stop: 06/19/17 02:01 Last Admin: 06/14/17 04:32 Dose: 200 mls/hr Micafungin Sodium 100 mg/ (Sodium Chloride) 100 mls @ 100 mls/hr IV Q24H [facility] Last Admin: 06/13/17 19:05 Dose: 100 mls Aztreonam 1 gm/ Sodium (Chloride) 100 mls @ 100 mls/hr IVPB Q12H [facility] Last Admin: 06/14/17 05:59 Dose: 100 mls/hr Morphine Sulfate/Sodium Chloride (Morphine [employer] Monoject Barrel) 30 mg IV Q4H PRN; Protocol PRN Reason: Pain, severe (8-10) Stop: 06/14/17 16:21 Oxycodone/Acetaminophen (Percocet 5/325 Mg Tab) 1 tab PO Q4 PRN PRN Reason: Pain, moderate (4-7) Stop: 06/16/17 16:29 Pneumococcal Polyvalent Vaccine (Pneumovax 23 Vaccine) 0.5 ml IM .ONCE ONE Stop: 06/15/17 10:01 Warfarin Sodium (Coumadin) 2.5 mg PO 1800 [facility] Stop: 06/14/17 18:01 - Labs Labs: 06/14/17 07:06 06/14/17 07:06 PT 17.1 SECONDS (9.7-12.2) H 06/14/17 07:06 INR 1.5 06/14/17 07:06
[2017-06-14] MEDS: Enoxaparin 40 mg Syringe SC SCH (13:03)
[2017-06-14 13:15] LABS: ABG ALLEN TEST POS; DRAW SITE LRA
--- NOTE | 2017-06-14 14:00 | RAD ---
HISTORY: verify right PICC COMPARISON: Portable chest 06/14/2017 08:20 a.m.. FINDINGS: LUNGS: Diffuse chronic interstitial pulmonary changes are again appreciated however borderline patchy infiltrate developing in the right perihilar space potentially reflecting alveolitis. No left sentinel alveolitis. PLEURA: No significant pleural effusion identified, no pneumothorax apparent. CARDIOVASCULAR: Normal. OSSEOUS STRUCTURES: No significant abnormalities. VISUALIZED UPPER ABDOMEN: Normal. OTHER FINDINGS: None. IMPRESSION: Potential right perihilar alveolitis superimposed over diffuse pulmonary fibrosis bilaterally. No definite left-sided infiltrate.
--- NOTE | 2017-06-14 14:47 | CP.PCM.PN ---
<Sergio Hager - Last Filed: 06/14/17 14:45> Subjective - Date & Time of Evaluation Date of Evaluation: 06/14/17 Time of Evaluation: 14:45 - Subjective Subjective: Medicine progress not for Dr. العلي HPI: Patient seen and examined at bedside. Doing well. In good spirits. Complaining of occasional pain at when he coughs or tries to move the leg. Besides that he has no complaints. Patient endorses a history of sickle cell trait. Denies any Nausea, vomiting, Diarrhea. Denies Flatus, Denies BM Objective - Vital Signs/Intake and Output Vital Signs (last 24 hours): Temp Pulse Resp BP Pulse Ox 98.2 F 120 H 20 97/66 L 99 06/14/17 07:25 06/14/17 07:25 06/14/17 07:25 06/14/17 07:25 06/14/17 07:25 Intake and Output: 06/14/17 06/14/17 06:59 18:59 Intake Total 1340 Output Total 1300 730 Balance -1300 610 - Medications Medications: Current Medications Acetaminophen (Tylenol 325mg Tab) 650 mg PO Q4 PRN PRN Reason: Fever 101 degrees fahrenheit Docusate Sodium (Colace) 100 mg PO BID [facility] Last Admin: 06/14/17 13:03 Dose: 100 mg Enoxaparin Sodium (Lovenox) 40 mg SC DAILY [facility] Last Admin: 06/14/17 13:03 Dose: 40 mg Furosemide (Lasix) 20 mg PO DAILY [facility] Last Admin: 06/14/17 13:04 Dose: Not Given Home Med (Bosentan [Tracleer]) 125 mg PO BID [facility] Hydromorphone HCl (Dilaudid) 0.5 mg IVP Q4H PRN PRN Reason: Pain, severe (8-10) Sodium Chloride (Sodium Chloride 0.9%) 1,000 mls @ 80 mls/hr IV .[id number] [facility] Last Admin: 06/14/17 04:37 Dose: Not Given Vancomycin/Sodium Chloride (Vancomycin 1 Gm/Ns 200 Ml) 1 gm in 200 mls @ 200 mls/hr IVPB Q12H [facility] Stop: 06/19/17 02:01 Last Admin: 06/14/17 04:32 Dose: 200 mls/hr Micafungin Sodium 100 mg/ (Sodium Chloride) 100 mls @ 100 mls/hr IV Q24H [facility] Last Admin: 06/13/17 19:05 Dose: 100 mls Aztreonam 1 gm/ Sodium (Chloride) 100 mls @ 100 mls/hr IVPB Q12H [facility] Last Admin: 06/14/17 05:59 Dose: 100 mls/hr Oxycodone/Acetaminophen (Percocet 5/325 Mg Tab) 1 tab PO Q4 PRN PRN Reason: Pain, moderate (4-7) Stop: 06/16/17 16:29 Pneumococcal Polyvalent Vaccine (Pneumovax 23 Vaccine) 0.5 ml IM .ONCE ONE Stop: 06/15/17 10:01 Warfarin Sodium (Coumadin) 5 mg PO 1800 [facility] Stop: 06/14/17 18:01 - Labs Labs: 06/14/17 07:06 06/14/17 07:06 PT 17.1 SECONDS (9.7-12.2) H 06/14/17 07:06 INR 1.5 06/14/17 07:06 - Constitutional Appears: Well, Non-toxic, No Acute Distress - Head Exam Head Exam: ATRAUMATIC, NORMAL INSPECTION, NORMOCEPHALIC - Eye Exam Eye Exam: EOMI Pupil Exam: NORMAL ACCOMODATION - ENT Exam ENT Exam: Mucous Membranes Moist - Neck Exam Neck Exam: Normal Inspection - Respiratory Exam Respiratory Exam: Clear to Ausculation Bilateral, NORMAL BREATHING PATTERN - Cardiovascular Exam Cardiovascular Exam: REGULAR RHYTHM - GI/Abdominal Exam GI & Abdominal Exam: Soft, Normal Bowel Sounds. absent: Distended, Tenderness - Extremities Exam Additional comments: Left leg cast in place. drain in place draining bright red blood - Neurological Exam Neurological Exam: Alert, Awake, CN II-XII Intact - Psychiatric Exam Psychiatric exam: Normal Affect, Normal Mood - Skin Skin Exam: Dry, Intact, Normal Color, Warm Assessment and Plan - Assessment and Plan (Free Text) Assessment: s/p knee replacement removal for septic joint * F/U BC * F/U WC * Aztreonam 1 Q12 * Micafungin 100 IV QD * Vanco 1 IV Q12 * Dilaudid 0.5 IVP Q4 PRN * Perc 5/325 PO Q4 PRN Hypotension * likely hypovolemic * NS @ 80 * 1.5L fluid bolus NS given * CXR shows some congestion after fluid boluses, will decrease fluids to 80 * BP stable Hx of PE * warfarin 5 PO 1800 * F/U INR Hx of CHF * F/U echo * lasix 20 PO QD PPX * Tylenol 650 mg PO Q4 * Colace 100 PO BID * Lovenox 40 SC QD <Starr العلي V - Last Filed: 06/15/17 00:24> Objective - Vital Signs/Intake and Output Vital Signs (last 24 hours): Temp Pulse Resp BP Pulse Ox 98.2 F 120 H 20 97/66 L 99 06/14/17 07:25 06/14/17 07:25 06/14/17 07:25 06/14/17 07:25 06/14/17 07:25 Intake and Output: 06/14/17 06/14/17 06:59 18:59 Intake Total 1340 Output Total 1300 730 Balance -1300 610 - Medications Medications: Current Medications Acetaminophen (Tylenol 325mg Tab) 650 mg PO Q4 PRN PRN Reason: Fever 101 degrees fahrenheit Docusate Sodium (Colace) 100 mg PO BID [facility] Last Admin: 06/14/17 13:03 Dose: 100 mg Enoxaparin Sodium (Lovenox) 40 mg SC DAILY [facility] Last Admin: 06/14/17 13:03 Dose: 40 mg Furosemide (Lasix) 20 mg PO DAILY [facility] Last Admin: 06/14/17 13:04 Dose: Not Given Home Med (Bosentan [Tracleer]) 125 mg PO BID [facility] Hydromorphone HCl (Dilaudid) 0.5 mg IVP Q4H PRN PRN Reason: Pain, severe (8-10) Sodium Chloride (Sodium Chloride 0.9%) 1,000 mls @ 80 mls/hr IV .[id number] [facility] Last Admin: 06/14/17 04:37 Dose: Not Given Vancomycin/Sodium Chloride (Vancomycin 1 Gm/Ns 200 Ml) 1 gm in 200 mls @ 200 mls/hr IVPB Q12H [facility] Stop: 06/19/17 02:01 Last Admin: 06/14/17 04:32 Dose: 200 mls/hr Micafungin Sodium 100 mg/ (Sodium Chloride) 100 mls @ 100 mls/hr IV Q24H [facility] Last Admin: 06/13/17 19:05 Dose: 100 mls Aztreonam 1 gm/ Sodium (Chloride) 100 mls @ 100 mls/hr IVPB Q12H [facility] Last Admin: 06/14/17 05:59 Dose: 100 mls/hr Oxycodone/Acetaminophen (Percocet 5/325 Mg Tab) 1 tab PO Q4 PRN PRN Reason: Pain, moderate (4-7) Stop: 06/16/17 16:29 Pneumococcal Polyvalent Vaccine (Pneumovax 23 Vaccine) 0.5 ml IM .ONCE ONE Stop: 06/15/17 10:01 Warfarin Sodium (Coumadin) 5 mg PO 1800 [facility] Stop: 06/14/17 18:01 - Labs Labs: 06/14/17 07:06 06/14/17 07:06 PT 17.1 SECONDS (9.7-12.2) H 06/14/17 07:06 INR 1.5 06/14/17 07:06 Attending/Attestation - Attestation I have personally seen and examined this patient.: Yes I have fully participated in the care of the patient.: Yes I have reviewed all pertinent clinical information, including history, physical exam and plan: Yes Notes (Text): Patient seen, examined, and case discussed with day-time resident. Patient seen this morning. Per review of cardiac clearance chart, patient with hx of multiple pulmonary emboli, DVT, s/p IVC filter, pulmonary hypertension, abnormal EKG, with prior normal ejection fraction noted in cardiac clearance note; no mention of CHF history in cardiac note. patient at bedside no history of CO, no stents. patient had pneumonia in Aug 2016. 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 Patient seen at bedside. patient is borderline hypotensive and tachycardia. patient is awake, alert, responsive, speaking at bedside. Patient ordered for additional bolus 1 Liter NS this morning. Increase in IV fluids. Patient completed echocardiogram during this admission awaiting official report. No bleeding from site per my exam this morning. Patient has keith; per discussion between overnight nurse and day-time nurse, 100cc urine output. Patient with history of sickle cell trait, and hx of anemia (hgb 9.3 prior to procedure; repeat today from 7.6 to 7.3) steadily decreasing. Patient is POD1. Patient is afebrile, no rise in White count in initial labs this morning, lactate acid 1.5. Patient is hypoxic on ABG with known hx of PE/DVT and pulm HTN. Patient with known hx of PE/DVT; per discussion he has had with patient's outpatient panel installer, he had recommended to bridge back to Coumadin when able to from ortho standpoint. Patient did not receive Coumadin overnight. Patient started on dvt ppx dose of Lovenox per ortho and from their prespective ok to bridge to Coumadin. Discussed case with Dr. Abbott this morning, minimal blood loss 250cc during procedure, and prior hx of variable INR while being adjusted for treatment of PE /DVT; INR: 1.3 and Coumadin was d/c prior to OR. Repeat CBC this evening, hgb decreased from 7.6 to 7.3; recommended for blood transfusion. Discussed with Ortho-PA who discussed with Dr. Abbott, agrees with 1 unit of PRBC unit to be administer. Resident consented patient for PICC line for IV antibiotics this morning. Patient has PICC line placed. Discussed case with ID, who is on the case, patient is on IV antibiotic regimen. Awaiting cultures. Blood and urine culture were pending; collected yesterday. Assessment/Plan 1) s/p knee replacement removal for septic joint * Medicine on consult reason; tachycardia, borderline hypotension * Orthopedic (Dr. Abbott) primary-->surgical management including preoperative /intraoperative/post-operative * Infectious Disease (Dr. Watters) on board-->help appreciated * F/U BC-->pending * F/U UC-->pending * Afebrile, no elevated white count, lactate 1.5 * Cultures from OR are pending at time of my exam * Aztreonam 1 Q12H * Micafungin 100 IV QDaily * Vanco 1 IV Q12H * Pain management per orthopedic * Discussed with ortho upon trending decreasing H/H, agree for blood transfusion ; to be administer 2) Hypotension * likely hypovolemic * Patient given 1 Liter fluid bolus this morning and on IV fluids; * CXR shows some congestion after fluid boluses, will decrease fluids to 80 * Discussed with ortho in evening, agree for blood transfusion given down trending H/H 3) Hx of PE/ DVT s/p IVC filter Hx of Pulmonary Hypertension * Diagnosed in November 2016 * Cath report included in the chart-->hx of multiple PE * s/p IVC filter * Patient's coumadin reversed prior to OR * Per ortho, patient may start Coumadin to bridge for PE/DVT hx * Held pulmonary hypertension side: hypotension in light of blood pressure; per discussion with pharmacy, these medications are not available on hospital formulary 4) Questionable hx of CHF * Read cardiac clearance documentation, no hx of CHF noted in documentation, prior commented by outpatient cardio echo reported normal function but echo report not included; repeat echocardiogram awaiting official report * held lasix 20 PO QD given borderline hypotension 5)PPX * Tylenol 650 mg PO Q4 * Colace 100 PO BID * Per ortho, dvt ppx resumed Lovenox 40 SC QDaily
--- NOTE | 2017-06-14 14:49 | RAD ---
HISTORY: PICC repositioned for proper tip position COMPARISON: Portable chest 06/14/2017. FINDINGS: LUNGS: Interstitial pulmonary pattern is again appreciated on a chronic basis. The patient is rotated toward the left limited evaluation the hilar regions bilaterally however a mid right pulmonary patchy density appears decreased. PLEURA: No significant pleural effusion identified, no pneumothorax apparent. CARDIOVASCULAR: Cardiomediastinal silhouette is remarkable for adjustment of PICC insertion terminating in the superior vena cava as opposed to brachycephalic vein previously. OSSEOUS STRUCTURES: No significant abnormalities. VISUALIZED UPPER ABDOMEN: Normal. OTHER FINDINGS: None. IMPRESSION: Interval improvement in limited patchy density in the right perihilar region overlying chronic interstitial pulmonary disease bilaterally. Adjustment of right PICC terminating in SVC at this time.
[2017-06-14] MEDS: Oxycodone/Acetaminophen 5/325 mg Tab PO PRN (15:09)
[2017-06-14 16:47] LABS: HEMATOCRIT 21.5 % (35.0-51.0); MEAN CELL VOLUME 73.9 fL (80.0-94.0); MEAN CORPUSCULAR HGB CONC 33.8 g/dL (33.0-37.0); MEAN PLATELET VOLUME 8.5 fL (7.2-11.7); RED CELL DISTRIBUTION WIDTH 24.2 % (11.5-14.5)
[2017-06-14] MEDS ORDERED: DiphenhydrAMINE 50 mg/ml Inj IVP ONE ×2 (17:25)
[2017-06-14] MEDS: Micafungin 100 MG in Sodium Chloride 0.9% 100 ML IV SCH (19:19)
--- NOTE | 2017-06-14 20:44 | CP.PCM.PN ---
Subjective - Date & Time of Evaluation Date of Evaluation: 06/14/17 Time of Evaluation: 20:44 - Subjective Subjective: CHIEF COMPLAINTS TODAY : afebrile, vital signs BP 97/66 slightly on the low side. c/o mild pain postoperative left knee and leg. Denies shortness of breath/or cough. ROS. HEENT : N. Resp : No SOB wheezing, cough Cardio : No CP, PND orthopnea GI : No abd. Pain, n/v [employer] : No headache , focal deficit. Musculoskel : POSTOPERATIVE PAIN LEFT LEG/LEFT KNEE, +VE WOUND VAC BRIGHT RED BLOOD. Ext. : Pedal pulses intact, no edema or calf pain Derm : N Psych : N. PE. Pt. is alert awake in no distress. V.S As noted in the chart Head ,ear nose,throat and eyes : Normal. Neck : Supple with normal carotids. Lungs: Clear air entry. Heart : S1 & S2 normal . . No murmur. S4 + Abd : Soft non tender with normal bowel sounds. Neuro : Moves all ext. with no localized deficit. Ext : No edema with intact pulses RT LEG. POSTOPERATIVE LEFT KNEE AND LEG IN SOFT CAST +VE WOUND VAC BRIGHT RED BLOOD. Derm : No rashes or decubitus ulcer. Radiology/Labs . WBC 9.1, h/h 7.6/22.2 platelets 142 Renal functions stable LFT NORMAL. REVIEWED 06/13/17 LEFT KNEE ASPIRATE Many PMNs and rare yeast. 06/13/17 left knee tissue -no growth so far. Objective - Vital Signs/Intake and Output Vital Signs (last 24 hours): Temp Pulse Resp BP Pulse Ox 98 F 118 H 20 92/61 L 96 06/14/17 15:51 06/14/17 15:51 06/14/17 15:51 06/14/17 15:51 06/14/17 15:51 Intake and Output: 06/14/17 06/15/17 18:59 06:59 Intake Total 2900 Output Total 850 Balance 2049 - Medications Medications: Current Medications Acetaminophen (Tylenol 325mg Tab) 650 mg PO Q4 PRN PRN Reason: Fever 101 degrees fahrenheit Docusate Sodium (Colace) 100 mg PO BID [facility] Last Admin: 06/14/17 13:03 Dose: 100 mg Enoxaparin Sodium (Lovenox) 40 mg SC DAILY [facility] Last Admin: 06/14/17 13:03 Dose: 40 mg Furosemide (Lasix) 20 mg PO DAILY [facility] Last Admin: 06/14/17 13:04 Dose: Not Given Hydromorphone HCl (Dilaudid) 0.5 mg IVP Q4H PRN PRN Reason: Pain, severe (8-10) Sodium Chloride (Sodium Chloride 0.9%) 1,000 mls @ 80 mls/hr IV .[id number] [facility] Last Admin: 06/14/17 04:37 Dose: Not Given Vancomycin/Sodium Chloride (Vancomycin 1 Gm/Ns 200 Ml) 1 gm in 200 mls @ 200 mls/hr IVPB Q12H [facility] Stop: 06/19/17 02:01 Last Admin: 06/14/17 04:32 Dose: 200 mls/hr Micafungin Sodium 100 mg/ (Sodium Chloride) 100 mls @ 100 mls/hr IV Q24H [facility] Last Admin: 06/14/17 19:19 Dose: 100 mls/hr Aztreonam 1 gm/ Sodium (Chloride) 100 mls @ 100 mls/hr IVPB Q12H [facility] Last Admin: 06/14/17 19:20 Dose: 100 mls/hr Oxycodone/Acetaminophen (Percocet 5/325 Mg Tab) 1 tab PO Q4 PRN PRN Reason: Pain, moderate (4-7) Stop: 06/16/17 16:29 Last Admin: 06/14/17 15:09 Dose: 1 tab Pneumococcal Polyvalent Vaccine (Pneumovax 23 Vaccine) 0.5 ml IM .ONCE ONE Stop: 06/15/17 10:01 - Labs Labs: 06/14/17 16:40 06/14/17 07:06 PT 17.1 SECONDS (9.7-12.2) H 06/14/17 07:06 INR 1.5 06/14/17 07:06 Assessment and Plan (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 synovial fluid wbc's 15,318, 93% neutrophils .RBCs 77,990. Gram stain synovial fluid aspirated; many WBCs, yeast positive. . Continue IV Vanco 1 g every 12 hourly 06/13/17. ON IV Mycamine 100 mg IV piggyback every 24 hourly.06/13/17 ON IV Azactam 1 g every 12 hourly for gram-negative coverage for now. 06/13/17. Follow-up Vanco trough prior to the fourth dose in a.m. and keep between 10 and 20. follow-up renal functions closely. FOLLOW-UP CULTURES TO ADJUST ANTIBIOTICS. ANALGESICS PER ORTHOPEDIC. Status: Acute (2) PHT (pulmonary hypertension) Status: Acute (3) Osteoarthritis Status: Acute
[2017-06-14] MEDS ORDERED: DiphenhydrAMINE 50 mg/ml Inj IVP STA (20:48)
--- NOTE | 2017-06-14 23:43 | CARD ---
APPROVED REPORT EKG Measurement Heart [id number] NH P105 [id number] <Conclusion> Poor data quality, interpretation may be adversely affected Suspect arm lead reversal, interpretation assumes no reversal Atrial flutter with 2:1 AV conduction Possible Right ventricular hypertrophy Nonspecific T wave abnormality Abnormal ECG
--- NOTE | 2017-06-15 00:18 | CARD ---
APPROVED REPORT EXAM: Two-dimensional and M-mode echocardiogram with Doppler and color Doppler. INDICATION Dyspnea Pulmonary Hypertention Congestive Heart Failure M-Mode DIMENSIONS RVDd2.05 (2.1-3.2cm)Left Atrium (MM)4.72 (2.5-4.0cm) IVSd0.73 (0.7-1.1cm)Aortic Root2.74 (2.2-3.7cm) LVDd5.03 (4.0-5.6cm)Aortic Cusp Exc.1.63 (1.5-2.0cm) PWd0.66 (0.7-1.1cm)FS (%) 32 % LVDs3.44 (2.0-3.8cm)LVEF (%)59 (>50%) Mitral Valve MV E Jxyafdhl822.7cm/sE/A ratio0.0 TDI E/Lateral E'0.0E/Medial E'0.0 Tricuspid Valve TR Peak [id number]/sTR Peak Gr.07nfVqGXIC13ydLd LEFT VENTRICLE The left ventricle is normal size. There is normal left ventricular wall thickness. The left ventricular function is overall normal. The left ventricular ejection fraction is within the normal range. About 60%. Paradoxical septal motion was noted, with flattening, c/w elevated RV pressure. The left ventricular diastolic function is normal. No left ventricle thrombus noted on this study. There is no ventricular septal defect visualized. There is no left ventricular aneurysm. There is no mass noted in the left ventricle. RIGHT VENTRICLE The right ventricle is severely dilated. There is normal right ventricular wall thickness. The right ventricular systolic function is severely reduced. ATRIA The left atrium size is normal. The right atrium size is severely dilated. The interatrial septum is intact with no evidence for an atrial septal defect. AORTIC VALVE The aortic valve is normal in structure and function. No aortic regurgitation is present. There is no aortic valvular stenosis. There is no aortic valvular vegetation. MITRAL VALVE The mitral valve is normal in structure and function. There is no evidence of mitral valve prolapse. There is no mitral valve stenosis. There is mild mitral valve regurgitation noted. TRICUSPID VALVE The tricuspid valve is normal in structure and function. There is mild tricuspid valve regurgitation noted. Estimated PA systolic pressure is 80 mm Hg. There is no tricuspid valve prolapse or vegetation. There is no tricuspid valve stenosis. PULMONIC VALVE The pulmonary valve is normal in structure and function. There is no pulmonic valvular regurgitation. There is no pulmonic valvular stenosis. GREAT VESSELS The aortic root is normal in size. The ascending aorta is normal in size. The pulmonary artery is normal. The IVC is normal in size and collapses >50% with inspiration. PERICARDIAL EFFUSION A trivial pericardial effusion is noted. There is no pleural effusion. <Conclusion> Overall normal LV systolic function with septal flattneing c/w elevated RV pressure. Severe RV dilation and RV enlargement. Severe pulminary HTN.
[2017-06-15] MEDS: Sodium Chloride 0.9% 1,000 ML IV SCH ×3 (01:09→18:20)
[2017-06-15] MEDS: Oxycodone/Acetaminophen 5/325 mg Tab PO PRN ×2 (01:23→11:49)
[2017-06-15] MEDS: Vancomycin 1 gm/NS 200 ml 1 GM/200 ML BAG IVPB SCH ×2 (01:24→14:45)
[2017-06-15 05:47] LABS: RBC URINE 6 /hpf (0-3); URINE BACTERIA RARE (<OCC); URINE BILIRUBIN NEGATIVE (NEGATIVE); URINE BLOOD 2+ (NEGATIVE); URINE COLOR Yellow (YELLOW); URINE GLUCOSE (UA) NORMAL (Normal); URINE KETONE NEGATIVE (NEGATIVE); URINE LEUKOCYTE ESTERASE 3+ Leu/uL (Negative); URINE PROTEIN 1+ mg/dL (NEGATIVE); URINE UROBILINOGEN NORMAL mg/dL (0.2-1.0); WBC CLUMPS FEW /hpf; WBC URINE 57 /hpf (0-5)
[2017-06-15] MEDS: Aztreonam 1 GM in Sodium Chloride 0.9% 100 ML IVPB SCH (06:02)
[2017-06-15 06:35] LABS: MEAN CELL VOLUME 74.2 fL (80.0-94.0); MEAN CORPUSCULAR HEMOGLOBIN 25.7 pg (27.0-31.0); MEAN CORPUSCULAR HGB CONC 34.6 g/dL (33.0-37.0); MEAN PLATELET VOLUME 8.7 fL (7.2-11.7); RED CELL DISTRIBUTION WIDTH 23.8 % (11.5-14.5); WHITE BLOOD COUNT 11.1 K/uL (4.8-10.8)
[2017-06-15 06:41] LABS: CHLORIDE 106 mmol/L (98-107); SODIUM 137 mmol/L (132-148)
[2017-06-15 06:42] LABS: POTASSIUM 4.2 mmol/L (3.6-5.2)
[2017-06-15 06:44] LABS: CARBON DIOXIDE 23 mmol/L (22-30); GFR AFRICAN-AMERICAN > 60
[2017-06-15 06:45] LABS: BLOOD UREA NITROGEN 15 mg/dL (9-20); CALCIUM 7.4 mg/dl (8.6-10.4); GLUCOSE,RANDOM 96 mg/dL (75-110)
--- NOTE | 2017-06-15 07:23 | CP.PCM.PN ---
<Sergio Hager - Last Filed: 06/15/17 11:32> Subjective - Date & Time of Evaluation Date of Evaluation: 06/15/17 Time of Evaluation: 07:23 - Subjective Subjective: Medicine Progress Note for Dr. العلي HPI: Patient seen and examined at bedside. Doing well with no complaints at this time. Pain is better controlled today. Tolerated transfusion well. Passing gas. No BM. NO fevers or chills. No nausea or vomiting. Objective - Vital Signs/Intake and Output Vital Signs (last 24 hours): Temp Pulse Resp BP Pulse Ox 98.2 F 119 H 20 89/52 L 98 06/15/17 05:23 06/15/17 05:23 06/15/17 05:23 06/15/17 05:23 06/14/17 23:20 Intake and Output: 06/15/17 06/15/17 06:59 18:59 Intake Total 1385 Output Total 425 Balance 960 - Medications Medications: Current Medications Acetaminophen (Tylenol 325mg Tab) 650 mg PO Q4 PRN PRN Reason: Fever 101 degrees fahrenheit Docusate Sodium (Colace) 100 mg PO BID [facility] Last Admin: 06/14/17 21:18 Dose: 100 mg Enoxaparin Sodium (Lovenox) 40 mg SC DAILY [facility] Last Admin: 06/14/17 13:03 Dose: 40 mg Furosemide (Lasix) 20 mg PO DAILY [facility] Last Admin: 06/14/17 13:04 Dose: Not Given Hydromorphone HCl (Dilaudid) 0.5 mg IVP Q4H PRN PRN Reason: Pain, severe (8-10) Sodium Chloride (Sodium Chloride 0.9%) 1,000 mls @ 80 mls/hr IV .[id number] [facility] Last Admin: 06/15/17 06:03 Dose: Not Given Vancomycin/Sodium Chloride (Vancomycin 1 Gm/Ns 200 Ml) 1 gm in 200 mls @ 200 mls/hr IVPB Q12H [facility] Stop: 06/19/17 02:01 Last Admin: 06/15/17 01:24 Dose: 200 mls/hr Micafungin Sodium 100 mg/ (Sodium Chloride) 100 mls @ 100 mls/hr IV Q24H [facility] Last Admin: 06/14/17 19:19 Dose: 100 mls/hr Aztreonam 1 gm/ Sodium (Chloride) 100 mls @ 100 mls/hr IVPB Q12H [facility] Last Admin: 06/15/17 06:02 Dose: 100 mls/hr Sodium Chloride (Sodium Chloride 0.9%) 1,000 mls @ 1,000 mls/hr IV .Q1H ONE Stop: 06/15/17 08:19 Oxycodone/Acetaminophen (Percocet 5/325 Mg Tab) 1 tab PO Q4 PRN PRN Reason: Pain, moderate (4-7) Stop: 06/16/17 16:29 Last Admin: 06/15/17 01:23 Dose: 1 tab Pneumococcal Polyvalent Vaccine (Pneumovax 23 Vaccine) 0.5 ml IM .ONCE ONE Stop: 06/15/17 10:01 - Labs Labs: 06/15/17 06:24 06/15/17 06:24 PT 23.5 SECONDS (9.7-12.2) H D 06/15/17 06:24 INR 2.0 D 06/15/17 06:24 - Constitutional Appears: Well, Non-toxic, No Acute Distress - Head Exam Head Exam: ATRAUMATIC, NORMAL INSPECTION, NORMOCEPHALIC - Eye Exam Eye Exam: EOMI Pupil Exam: NORMAL ACCOMODATION - ENT Exam ENT Exam: Mucous Membranes Moist - Respiratory Exam Respiratory Exam: Clear to Ausculation Bilateral, NORMAL BREATHING PATTERN - Cardiovascular Exam Cardiovascular Exam: REGULAR RHYTHM. absent: Tachycardia - GI/Abdominal Exam GI & Abdominal Exam: Soft, Normal Bowel Sounds. absent: Distended, Tenderness - Extremities Exam Extremities Exam: Tenderness. absent: Joint Swelling Additional comments: tenderness at the knee. Dressing changed today. Dressing clean dry and intact - Back Exam Back Exam: absent: CVA tenderness (L), CVA tenderness (R) - Neurological Exam Neurological Exam: Alert, Awake, Oriented x3 - Psychiatric Exam Psychiatric exam: Normal Affect, Normal Mood - Skin Skin Exam: Dry, Intact, Normal Color, Warm Assessment and Plan - Assessment and Plan (Free Text) Assessment: s/p knee replacement removal for septic joint * F/U BC - negative to date * F/U WC - negative to date * Aztreonam 1 Q12 * Micafungin 100 IV QD * Vanco 1 IV Q12 * Dilaudid 0.5 IVP Q4 PRN * Perc 5/325 PO Q4 PRN * dressing changed today Hypotension * likely hypovolemic * NS @ 80 * 1L fluid bolus NS given today * CXR shows some congestion after fluid boluses, will decrease fluids to 80 * BP stable Hx of PE * warfarin held today * INR 2 Hx of CHF * echo * EF 59, severe pulm HTN * lasix 20 PO QD PPX * Tylenol 650 mg PO Q4 * Colace 100 PO BID * Lovenox 40 SC QD <Starr العلي V - Last Filed: 06/16/17 00:29> Objective - Vital Signs/Intake and Output Vital Signs (last 24 hours): Temp Pulse Resp BP Pulse Ox 97.8 F 123 H 20 90/61 L 100 06/15/17 20:00 06/15/17 20:00 06/15/17 20:00 06/15/17 20:00 06/15/17 15:12 Intake and Output: 06/15/17 06/16/17 18:59 06:59 Intake Total 800 1000 Balance 800 1000 - Medications Medications: Current Medications Acetaminophen (Tylenol 325mg Tab) 650 mg PO Q4 PRN PRN Reason: Fever 101 degrees fahrenheit Digoxin (Lanoxin) 0.25 mg IVP DAILY@1000 [facility] Docusate Sodium (Colace) 100 mg PO BID [facility] Last Admin: 06/15/17 18:15 Dose: 100 mg Enoxaparin Sodium (Lovenox) 30 mg SC Q12 [facility] Last Admin: 06/15/17 21:37 Dose: 30 mg Ergocalciferol (Drisdol 50,000 Intl Units Cap) 1 cap PO Q7D [facility] Stop: 06/27/17 12:16 Last Admin: 06/15/17 13:52 Dose: 1 cap Furosemide (Lasix) 20 mg PO DAILY [facility] Last Admin: 06/15/17 10:46 Dose: Not Given Hydromorphone HCl (Dilaudid) 0.5 mg IVP Q4H PRN PRN Reason: Pain, severe (8-10) Sodium Chloride (Sodium Chloride 0.9%) 1,000 mls @ 80 mls/hr IV .[id number] [facility] Last Admin: 06/15/17 18:20 Dose: 80 mls/hr Vancomycin/Sodium Chloride (Vancomycin 1 Gm/Ns 200 Ml) 1 gm in 200 mls @ 200 mls/hr IVPB Q12H [facility] Stop: 06/19/17 02:01 Last Admin: 06/15/17 14:45 Dose: 200 mls/hr Aztreonam 1 gm/ Dextrose 100 mls @ 100 mls/hr IVPB Q12H [facility] Last Admin: 06/15/17 18:14 Dose: 100 mls/hr Micafungin Sodium 100 mg/ (Dextrose) 100 mls @ 100 mls/hr IV Q24H [facility] Last Admin: 06/15/17 18:13 Dose: 100 mls/hr Oxycodone/Acetaminophen (Percocet 5/325 Mg Tab) 1 tab PO Q4 PRN PRN Reason: Pain, moderate (4-7) Stop: 06/16/17 16:29 Last Admin: 06/15/17 11:49 Dose: 1 tab - Labs Labs: 06/15/17 13:11 06/15/17 06:24 PT 23.5 SECONDS (9.7-12.2) H D 06/15/17 06:24 INR 2.0 D 06/15/17 06:24 Attending/Attestation - Attestation I have personally seen and examined this patient.: Yes I have fully participated in the care of the patient.: Yes I have reviewed all pertinent clinical information, including history, physical exam and plan: Yes Notes (Text): This is late computer entry for 06/15/2017. Patient seen, examined, and case discussed with day-time resident. Patient seen this morning. Patient looks like he is improving. Hydration has improved. Patient currently urinating in the [place]. o is on the case, patient is on IV antibiotic regimen. Awaiting cultures. Blood and urine culture were pending; collected yesterday. Assessment/Plan 1) s/p knee replacement removal for septic joint * Medicine on consult reason; tachycardia, borderline hypotension * Orthopedic (Dr. Abbott) primary-->surgical management including preoperative /intraoperative/post-operative * Infectious Disease (Dr. Watters) on board-->help appreciated * F/U BC-->pending * F/U UC-->pending * Afebrile, no elevated white count, lactate 1.5 * Cultures from OR are pending at time of my exam * Aztreonam 1 Q12H * Micafungin 100 IV QDaily * Vanco 1 IV Q12H * Pain management per orthopedic * Discussed with ortho upon trending decreasing H/H, agree for blood transfusion ; to be administer 2) Hypotension * likely hypovolemic * Patient given 1 Liter fluid bolus this morning and on IV fluids; * CXR shows some congestion after fluid boluses, will decrease fluids to 80 * Discussed with ortho in evening, agree for blood transfusion given down trending H/H 3) Hx of PE/ DVT s/p IVC filter Hx of Pulmonary Hypertension * Diagnosed in November 2016 * Cath report included in the chart-->hx of multiple PE * s/p IVC filter * Patient's coumadin reversed prior to OR * Per ortho, patient may start Coumadin to bridge for PE/DVT hx * Held pulmonary hypertension side: hypotension in light of blood pressure; per discussion with pharmacy, these medications are not available on hospital formulary 4) Questionable hx of CHF * Read cardiac clearance documentation, no hx of CHF noted in documentation, prior commented by outpatient cardio echo reported normal function but echo report not included; repeat echocardiogram awaiting official report * held lasix 20 PO QD given borderline hypotension 5)PPX * Tylenol 650 mg PO Q4 * Colace 100 PO BID * Per ortho, dvt ppx resumed Lovenox 40 SC QDaily
[2017-06-15] MEDS ORDERED: Sodium Chloride 0.9% 1,000 ML IV ONE (08:30)
[2017-06-15] MEDS ORDERED: Influenza Vaccine 60 mcg/0.5 mL SYR (4YR UP) IM ONE (10:00)
[2017-06-15] MEDS ORDERED: Pneumococcal 23-Valent Vaccine IM ONE (10:00)
[2017-06-15] MEDS: Enoxaparin 40 mg Syringe SC SCH (11:05)
--- NOTE | 2017-06-15 11:41 | CP.PCM.PN ---
Subjective - Date & Time of Evaluation Date of Evaluation: 06/15/17 Time of Evaluation: 11:39 - Subjective Subjective: Pt awake, alert. Pt feels much better today. Pt received 1 unit PRBCs Afebrile, HR 120's L knee: dressing changed drain d/c'd incision clean and intact small amount of bloody drainage thigh and calf soft, NT NVI distally Hg 7.6 POD#2 follow cultures Cardiology consulted for tachycardia cont antibiotics Objective - Vital Signs/Intake and Output Vital Signs (last 24 hours): Temp Pulse Resp BP Pulse Ox 98.0 F 120 H 20 101/73 97 06/15/17 07:58 06/15/17 11:17 06/15/17 07:58 06/15/17 11:17 06/15/17 07:58 Intake and Output: 06/15/17 06/15/17 06:59 18:59 Intake Total 2185 Output Total 425 Balance 1760 - Medications Medications: Current Medications Acetaminophen (Tylenol 325mg Tab) 650 mg PO Q4 PRN PRN Reason: Fever 101 degrees fahrenheit Docusate Sodium (Colace) 100 mg PO BID [facility] Last Admin: 06/15/17 10:46 Dose: 100 mg Enoxaparin Sodium (Lovenox) 40 mg SC DAILY [facility] Last Admin: 06/15/17 11:05 Dose: Not Given Furosemide (Lasix) 20 mg PO DAILY [facility] Last Admin: 06/15/17 10:46 Dose: Not Given Hydromorphone HCl (Dilaudid) 0.5 mg IVP Q4H PRN PRN Reason: Pain, severe (8-10) Sodium Chloride (Sodium Chloride 0.9%) 1,000 mls @ 80 mls/hr IV .[id number] [facility] Last Admin: 06/15/17 06:03 Dose: Not Given Vancomycin/Sodium Chloride (Vancomycin 1 Gm/Ns 200 Ml) 1 gm in 200 mls @ 200 mls/hr IVPB Q12H [facility] Stop: 06/19/17 02:01 Last Admin: 06/15/17 01:24 Dose: 200 mls/hr Aztreonam 1 gm/ Dextrose 100 mls @ 100 mls/hr IVPB Q12H [facility] Micafungin Sodium 100 mg/ (Dextrose) 100 mls @ 100 mls/hr IV Q24H [facility] Oxycodone/Acetaminophen (Percocet 5/325 Mg Tab) 1 tab PO Q4 PRN PRN Reason: Pain, moderate (4-7) Stop: 06/16/17 16:29 Last Admin: 06/15/17 01:23 Dose: 1 tab - Labs Labs: 06/15/17 06:24 06/15/17 06:24 PT 23.5 SECONDS (9.7-12.2) H D 06/15/17 06:24 INR 2.0 D 06/15/17 06:24
[2017-06-15] MEDS ORDERED: Ergocalciferol 50,000 Intl Units Cap PO SCH (12:15)
[2017-06-15 13:18] LABS: BASO % 0.4 % (0.0-2.0); EOS # 0.2 K/uL (0.0-0.7); EOS % 1.4 % (0.0-4.0); HEMATOCRIT 24.3 % (35.0-51.0); LYMPH # 0.3 K/uL (1.0-4.3); LYMPH % 2.3 % (20.0-40.0); MEAN CELL VOLUME 74.9 fL (80.0-94.0); MEAN CORPUSCULAR HEMOGLOBIN 25.2 pg (27.0-31.0); MEAN CORPUSCULAR HGB CONC 33.6 g/dL (33.0-37.0); MEAN PLATELET VOLUME 8.6 fL (7.2-11.7); MONO # 1.9 K/uL (0.0-0.8); MONO % 16.4 % (0.0-10.0); NRBC % 0.3 % (0.0-2.0); PLATELET COUNT 139 K/uL (130-400); RED CELL DISTRIBUTION WIDTH 23.5 % (11.5-14.5); WHITE BLOOD COUNT 11.6 K/uL (4.8-10.8)
[2017-06-15 13:54] LABS: EOSINOPHIL 2 % (0-4); NEUTROPHIL 74 % (50-75); TOTAL CELLS COUNTED 100
--- NOTE | 2017-06-15 17:41 | CP.PCM.CON ---
History of Present Illness - History of Present Illness History of Present Illness: I was asked to see patient by Dr Abbott. Patient is a 71 year old male with a history of HTN PAF who presents with L knee hemarthrosis. Patient has had previous knee replacement, and developed likely septic knee. The surgical knee was removed, however he was noted to be hypotensive, anemic. EKG suggested rapid atrial fibrillation. He is currently asymptomatic. Review of Systems - Constitutional Constitutional: absent: As Per HPI, Anorexia, Chills, Daytime Sleepiness, Excessive Sweating, Fatigue, Fever, Frequent Falls, Headache, Increased Appetite , Lethargy, Malaise, Night Sweats, Snoring, Sleep Apnea, Weight Gain, Weight Loss, Weakness, Other - EENT Eyes: absent: As Per HPI, Blind Spots, Blurred Vision, Change in Vision, Decreased Night Vision, Diplopia, Discharge, Dry Eye, Exophthalmos, Floaters, Irritation, Itchy Eyes, Loss of Peripheral Vision, Pain, Photophobia, Requires Corrective Lenses, Sees Flashes, Spots in Vision, Tunnel Vision, Other Visual Disturbances, Loss of Vision, Other Ears: absent: As Per HPI, Decreased Hearing, Ear Discharge, Ear Pain, Tinnitus, Abnormal Hearing, Disequilibrium, Dizziness, Other Nose/Mouth/Throat: absent: As Per HPI, Epistaxis, Nasal Congestion, Nasal Discharge, Nasal Obstruction, Nasal Trauma, Nose Pain, Post Nasal Drip, Sinus Pain, Sinus Pressure, Bleeding Gums, Change in Voice, Dental Pain, Dry Mouth, Dysphagia, Halitosis, Hoarsness, Lip Swelling, Mouth Lesions, Mouth Pain, Odynophagia, Sore Throat, Throat Swelling, Tongue Swelling, Facial Pain, Neck Pain, Neck Mass, Other - Cardiovascular Cardiovascular: Irregular Heart Rhythm - Respiratory Respiratory: absent: As Per HPI, Cough, Dyspnea, Hemoptysis, Dyspnea on Exertion , Wheezing, Snoring, Stridor, Pain on Inspiration, Chest Congestion, Excessive Mucous Production, Change in Mucous Color, Pain with Coughing, Other - Gastrointestinal Gastrointestinal: absent: As Per HPI, Abdominal Pain, Belching, Bloating, Change in Bowel Habits, Change in Stool Character, Coffee Ground Emesis, Constipation, Cramping, Diarrhea, Dyspepsia, Dysphagia, Early Satiety, Excessive Flatus, Fecal Incontinence, Heartburn, Hematemesis, Hematochezia, Loose Stools, Melena, Nausea, Odynophagia, Temesmus, Vomiting, Other - Musculoskeletal Musculoskeletal: Radiating Pain into Limb - Integumentary Integumentary: absent: As Per HPI, Acne, Alopecia, Bleeding Lesions, Change in Hair, Change in Nails, Change in Pigmentation, Changing Lesions, Dry Skin, Erythema, Furuncle, Hirsutism, Lesions, New Lesions, Non-Healing Lesions, Photosensitivity, Pruritus, Rash, Skin Pain, Skin Ulcer, Sores, Striae, Swelling , Unusual Bruising, Wounds, Jaundice, Other - Neurological Neurological: absent: As Per HPI, Abnormal Gait, Abnormal Hearing, Abnormal Movements, Abnormal Speech, Behavioral Changes, Burning Sensations, Confusion, Convulsions, Disequilibrium, Dizziness, Numbness, Focal Weakness, Frequent Falls , Headaches, Lack of Coordination, Loss of Vision, Memory Loss, Paresthesias, Radicular Pain, Restless Legs, Sensory Deficit, Syncope, Tingling, Tremor, Vertigo, Weakness, Other Visual Disturbances, Other - Psychiatric Psychiatric: absent: As Per HPI, Abnormal Sleep Pattern, Anhedonia, Anxiety, Auditory Hallucinations, Behavioral Changes, Change in Appetite, Change in Libido, Confusion, Depression, Difficulty Concentrating, Hallucinations, Homicidal Ideation, Hopelessness, Irritability, Memory Loss, Mood Swings, Panic Attacks, Paranoia, Suicidal Ideation, Visual Hallucinations, Tactile Hallucinations, Other - Endocrine Endocrine: absent: As Per HPI, Change in Body Appearance, Change in Libido, Cold Intolorance, Deepening of Voice, Excessive Sweating, Fatigue, Flushing, Heat Intolorance, Increase in Ring/Shoe/Hat Size, Palpitations, Polydipsia, Polyphagia, Polyuria, Other - Hematologic/Lymphatic Hematologic: absent: As Per HPI, Easy Bleeding, Easy Bruising, Lymphadenopathy, Other Past Patient History - Past Medical History & Family History Past Medical History?: Yes Past Family History: Reviewed and not pertinent - Past Social History Smoking Status: Never Smoked - CARDIAC Hx Cardiac Disorders: Yes Hx Congestive Heart Failure: Yes (2002) Hx Peripheral Edema: Yes - PULMONARY Hx Respiratory Disorders: Yes (pulmonary hypertension) Hx Pneumonia: Yes (aug 2016) - NEUROLOGICAL Hx Neurological Disorder: Yes Hx Dizziness: Yes Hx Meningitis: Yes (1999) - HEENT Hx HEENT Problems: Yes Hx Cataracts: Yes (bilat iol) - RENAL Hx Chronic Kidney Disease: No - ENDOCRINE/METABOLIC Hx Endocrine Disorders: No - HEMATOLOGICAL/ONCOLOGICAL Hx Blood Disorders: Yes Hx Blood Transfusions: Yes Hx Blood Transfusion Reaction: No Hx Sickle Cell Disease: Yes - INTEGUMENTARY Hx Dermatological Problems: No - MUSCULOSKELETAL/RHEUMATOLOGICAL Hx Musculoskeletal Disorders: Yes Hx Osteoarthritis: Yes - GASTROINTESTINAL Hx Gastrointestinal Disorders: No - GENITOURINARY/GYNECOLOGICAL Hx Genitourinary Disorders: No - PSYCHIATRIC Hx Psychophysiologic Disorder: No - SURGICAL HISTORY Hx Surgeries: Yes Hx Cataract Extraction: Yes Hx Cardiac Catheterization: Yes Hx Herniorrhaphy: Yes (left ing) Hx Joint Replacement: Yes (left knee) Other/Comment: cochlear implant left ear - ANESTHESIA Hx Anesthesia: Yes Hx Anesthesia Reactions: No Hx Malignant Hyperthermia: No Has any member of the family had a problem w/ anesthesia?: No Meds Allergies/Adverse Reactions: Allergies Allergy/AdvReac Type Severity Reaction Status Date / Time cephalexin [From Keflex] Allergy Intermediate ITCHING Verified 06/07/17 08:31 - Medications Medications: Current Medications Acetaminophen (Tylenol 325mg Tab) 650 mg PO Q4 PRN PRN Reason: Fever 101 degrees fahrenheit Docusate Sodium (Colace) 100 mg PO BID [facility] Last Admin: 06/15/17 10:46 Dose: 100 mg Ergocalciferol (Drisdol 50,000 Intl Units Cap) 1 cap PO Q7D [facility] Stop: 06/27/17 12:16 Last Admin: 06/15/17 13:52 Dose: 1 cap Furosemide (Lasix) 20 mg PO DAILY [facility] Last Admin: 06/15/17 10:46 Dose: Not Given Hydromorphone HCl (Dilaudid) 0.5 mg IVP Q4H PRN PRN Reason: Pain, severe (8-10) Sodium Chloride (Sodium Chloride 0.9%) 1,000 mls @ 80 mls/hr IV .[id number] [facility] Last Admin: 06/15/17 06:03 Dose: Not Given Vancomycin/Sodium Chloride (Vancomycin 1 Gm/Ns 200 Ml) 1 gm in 200 mls @ 200 mls/hr IVPB Q12H [facility] Stop: 06/19/17 02:01 Last Admin: 06/15/17 14:45 Dose: 200 mls/hr Aztreonam 1 gm/ Dextrose 100 mls @ 100 mls/hr IVPB Q12H [facility] Micafungin Sodium 100 mg/ (Dextrose) 100 mls @ 100 mls/hr IV Q24H [facility] Oxycodone/Acetaminophen (Percocet 5/325 Mg Tab) 1 tab PO Q4 PRN PRN Reason: Pain, moderate (4-7) Stop: 06/16/17 16:29 Last Admin: 06/15/17 11:49 Dose: 1 tab Warfarin Sodium (Coumadin) 2.5 mg PO 1800 [facility] Stop: 06/15/17 18:01 Physical Exam - Constitutional Appears: Non-toxic - Head Exam Head Exam: NORMAL INSPECTION - Eye Exam Eye Exam: Normal appearance - ENT Exam ENT Exam: Mucous Membranes Moist - Neck Exam Neck exam: Positive for: Full Rom - Respiratory Exam Respiratory Exam: Decreased Breath Sounds - Cardiovascular Exam Cardiovascular Exam: Irregular Rhythm - GI/Abdominal Exam GI & Abdominal Exam: Normal Bowel Sounds - Rectal Exam Rectal Exam: Deferred - Extremities Exam Extremities exam: Negative for: pedal edema - Back Exam Back exam: NORMAL INSPECTION Results - Vital Signs Recent Vital Signs: Last Vital Signs Temp 97.4 F L 06/15/17 15:12 Pulse 123 H 06/15/17 16:44 Resp 18 06/15/17 15:12 BP 91/57 L 06/15/17 16:44 Pulse Ox 100 06/15/17 15:12 - Labs Result Diagrams: 06/15/17 13:11 06/15/17 06:24 Labs: Laboratory Results - last 24 hr 06/13/17 06/15/17 06/15/17 11:09 05:34 06:24 WBC 11.1 H RBC 2.97 L Hgb 7.6 L Hct 22.0 L MCV 74.2 L MCH 25.7 L MCHC 34.6 RDW 23.8 H Plt Count 122 L MPV 8.7 Neut % (Auto) Lymph % (Auto) Hendricks % (Auto) Eos % (Auto) Baso % (Auto) Neut # Lymph # Hendricks # Eos # Baso # Neutrophils % (Manual) Band Neutrophils % Lymphocytes % (Manual) Monocytes % (Manual) Eosinophils % (Manual) Platelet Estimate Polychromasia Hypochromasia (manual) Poikilocytosis (manual Anisocytosis (manual) Microcytosis (manual) Macrocytosis (manual) Target Cells PT INR Sodium Potassium Chloride Carbon Dioxide Anion Gap BUN Creatinine Est GFR ( Amer) Est GFR (Non-Af Amer) Random Glucose Calcium Total Creatine Kinase CK-MB (Mass) Troponin I, Quant 25-OH Vitamin D Total Urine Color Yellow Urine Clarity Hazy Urine pH 5.0 Ur Specific [place] 1.013 Urine Protein 1+ H Urine Glucose (UA) Normal Urine Ketones Negative Urine Blood 2+ H Urine Nitrate Negative Urine Bilirubin Negative Urine Urobilinogen Normal Ur Leukocyte Esterase 3+ H Urine WBC (Auto) 57 H Urine RBC (Auto) 6 H Urine WBC Clumps (Auto) Few H Ur Squamous Epith Cells 2 Urine Bacteria Rare Vancomycin Trough Blood Type O POSITIVE Antibody Screen Negative 06/15/17 06/15/17 06/15/17 06:24 06:24 06:24 WBC RBC Hgb Hct MCV MCH MCHC RDW Plt Count MPV Neut % (Auto) Lymph % (Auto) Hendricks % (Auto) Eos % (Auto) Baso % (Auto) Neut # Lymph # Hendricks # Eos # Baso # Neutrophils % (Manual) Band Neutrophils % Lymphocytes % (Manual) Monocytes % (Manual) Eosinophils % (Manual) Platelet Estimate Polychromasia Hypochromasia (manual) Poikilocytosis (manual Anisocytosis (manual) Microcytosis (manual) Macrocytosis (manual) Target Cells PT 23.5 H D INR 2.0 D Sodium 137 Potassium 4.2 Chloride 106 Carbon Dioxide 23 Anion Gap 11 BUN 15 Creatinine 1.1 Est GFR ( Amer) > 60 Est GFR (Non-Af Amer) > 60 Random Glucose 96 Calcium 7.4 L Total Creatine Kinase CK-MB (Mass) Troponin I, Quant 25-OH Vitamin D Total 13.4 L Urine Color Urine Clarity Urine pH Ur Specific [place] Urine Protein Urine Glucose (UA) Urine Ketones Urine Blood Urine Nitrate Urine Bilirubin Urine Urobilinogen Ur Leukocyte Esterase Urine WBC (Auto) Urine RBC (Auto) Urine WBC Clumps (Auto) Ur Squamous Epith Cells Urine Bacteria Vancomycin Trough Blood Type Antibody Screen 06/15/17 06/15/17 06/15/17 06:24 13:11 13:11 WBC 11.6 H RBC 3.25 L Hgb 8.2 L Hct 24.3 L MCV 74.9 L MCH 25.2 L MCHC 33.6 RDW 23.5 H Plt Count 139 MPV 8.6 Neut % (Auto) 79.5 H Lymph % (Auto) 2.3 L Hendricks % (Auto) 16.4 H Eos % (Auto) 1.4 Baso % (Auto) 0.4 Neut # 9.2 H Lymph # 0.3 L Hendricks # 1.9 H Eos # 0.2 Baso # 0.0 Neutrophils % (Manual) 74 Band Neutrophils % 2 Lymphocytes % (Manual) 8 L Monocytes % (Manual) 14 H Eosinophils % (Manual) 2 Platelet Estimate Normal Polychromasia Slight Hypochromasia (manual) Marked Poikilocytosis (manual Moderate Anisocytosis (manual) Moderate Microcytosis (manual) Moderate Macrocytosis (manual) Moderate Target Cells Moderate PT INR Sodium Potassium Chloride Carbon Dioxide Anion Gap BUN Creatinine Est GFR ( Amer) Est GFR (Non-Af Amer) Random Glucose Calcium Total Creatine Kinase 182 H CK-MB (Mass) 1.95 Troponin I, Quant 0.0330 25-OH Vitamin D Total Urine Color Urine Clarity Urine pH Ur Specific [place] Urine Protein Urine Glucose (UA) Urine Ketones Urine Blood Urine Nitrate Urine Bilirubin Urine Urobilinogen Ur Leukocyte Esterase Urine WBC (Auto) Urine RBC (Auto) Urine WBC Clumps (Auto) Ur Squamous Epith Cells Urine Bacteria Vancomycin Trough 16.1 H Blood Type Antibody Screen - EKG Data EKG Interpreted by: Myself Assessment & Plan (1) Atrial fibrillation Assessment and Plan: recommend digoxin 0.5 mg IV now. nissa reevaluate with improved volume status and correction of anemia. will review echocardiogram Status: Acute
[2017-06-15] MEDS: Micafungin 100 MG in Dextrose 5% In Water 100 ML IV SCH (18:13)
[2017-06-15] MEDS: Aztreonam 1 GM in Dextrose 5% In Water 100 ML IVPB SCH (18:14)
[2017-06-15] MEDS ORDERED: Digoxin 500 mcg/2ml (0.5 mg/2ml) Inj IVP ONE ×2 (19:12→21:45)
[2017-06-15] MEDS: Enoxaparin 30 mg Syringe SC SCH (21:37)
--- NOTE | 2017-06-15 22:47 | CP.PCM.PN ---
Subjective - Date & Time of Evaluation Date of Evaluation: 06/15/17 Time of Evaluation: 22:47 - Subjective Subjective: CHIEF COMPLAINTS TODAY : afebrile, c/o mild pain postoperative left knee and leg. Denies shortness of breath/or cough. seen by CARDIOLOGY. ROSSuzanna HEENT : N. Resp : No SOB wheezing, cough Cardio : No CP, PND orthopnea GI : No abd. 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 Musculoskel : POSTOPERATIVE PAIN LEFT LEG/LEFT KNEE, +VE WOUND VAC BRIGHT RED BLOOD. Ext. : Pedal pulses intact, no edema or calf pain Derm : N Psych : N. PE. Pt. is alert awake in no distress. V.S As noted in the chart Head ,ear nose,throat and eyes : Normal. Neck : Supple with normal carotids. Lungs: Clear air entry. Heart : S1 & S2 normal . . No murmur. S4 + Abd : Soft non tender with normal bowel sounds. Neuro : Moves all ext. with no localized deficit. Ext : No edema with intact pulses RT LEG. POSTOPERATIVE LEFT KNEE AND LEG IN SOFT CAST +VE WOUND VAC BRIGHT RED BLOOD. Derm : No rashes or decubitus ulcer. Radiology/Labs . VANCO TROUGH 16.1.-OK. CK 182. wbc 11.6, H/H 8.2/24.3, PLATELETS 139 BETTER. bLOOD CULTURES 06/13/17 -VE FOR 48 HOURS. LFT NORMAL. REVIEWED 06/13/17 LEFT KNEE ASPIRATE Many PMNs and rare yeast. 06/13/17 left knee tissue -no growth so far. Objective - Vital Signs/Intake and Output Vital Signs (last 24 hours): Temp Pulse Resp BP Pulse Ox 97.4 F L 123 H 18 91/57 L 100 06/15/17 15:12 06/15/17 16:44 06/15/17 15:12 06/15/17 16:44 06/15/17 15:12 Intake and Output: 06/15/17 06/16/17 18:59 06:59 Intake Total 800 Balance 800 - Medications Medications: Current Medications Acetaminophen (Tylenol 325mg Tab) 650 mg PO Q4 PRN PRN Reason: Fever 101 degrees fahrenheit Docusate Sodium (Colace) 100 mg PO BID [facility] Last Admin: 06/15/17 18:15 Dose: 100 mg Enoxaparin Sodium (Lovenox) 30 mg SC Q12 [facility] Last Admin: 06/15/17 21:37 Dose: 30 mg Ergocalciferol (Drisdol 50,000 Intl Units Cap) 1 cap PO Q7D [facility] Stop: 06/27/17 12:16 Last Admin: 06/15/17 13:52 Dose: 1 cap Furosemide (Lasix) 20 mg PO DAILY [facility] Last Admin: 06/15/17 10:46 Dose: Not Given Hydromorphone HCl (Dilaudid) 0.5 mg IVP Q4H PRN PRN Reason: Pain, severe (8-10) Sodium Chloride (Sodium Chloride 0.9%) 1,000 mls @ 80 mls/hr IV .[id number] [facility] Last Admin: 06/15/17 18:20 Dose: 80 mls/hr Vancomycin/Sodium Chloride (Vancomycin 1 Gm/Ns 200 Ml) 1 gm in 200 mls @ 200 mls/hr IVPB Q12H [facility] Stop: 06/19/17 02:01 Last Admin: 06/15/17 14:45 Dose: 200 mls/hr Aztreonam 1 gm/ Dextrose 100 mls @ 100 mls/hr IVPB Q12H [facility] Last Admin: 06/15/17 18:14 Dose: 100 mls/hr Micafungin Sodium 100 mg/ (Dextrose) 100 mls @ 100 mls/hr IV Q24H [facility] Last Admin: 06/15/17 18:13 Dose: 100 mls/hr Oxycodone/Acetaminophen (Percocet 5/325 Mg Tab) 1 tab PO Q4 PRN PRN Reason: Pain, moderate (4-7) Stop: 06/16/17 16:29 Last Admin: 06/15/17 11:49 Dose: 1 tab - Labs Labs: 06/15/17 13:11 06/15/17 06:24 PT 23.5 SECONDS (9.7-12.2) H D 06/15/17 06:24 INR 2.0 D 06/15/17 06:24 Assessment and Plan (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 synovial fluid wbc's 15,318, 93% neutrophils .RBCs 77,990. Gram stain synovial fluid aspirated; many WBCs, yeast positive. CULTURE PENDING . Continue IV Vanco 1 g every 12 hourly 06/13/17. ON IV Mycamine 100 mg IV piggyback every 24 hourly.06/13/17 ON IV Azactam 1 g every 12 hourly for gram-negative coverage for now. 06/13/17. follow-up renal functions closely. FOLLOW-UP CULTURES TO ADJUST ANTIBIOTICS. ANALGESICS PER ORTHOPEDIC. Status: Acute (2) PHT (pulmonary hypertension) Status: Acute (3) Osteoarthritis Status: Acute
--- NOTE | 2017-06-15 23:08 | CARD ---
APPROVED REPORT EKG Measurement Heart [id number] <Conclusion> Suspect arm lead reversal, interpretation assumes no reversal Atrial flutter with 2:1 AV conduction Possible Right ventricular hypertrophy Abnormal ECG
--- NOTE | 2017-06-15 23:08 | CARD ---
APPROVED REPORT EKG Measurement Heart [id number] CA P73 [id number] <Conclusion> Atrial flutter with 2:1 AV conduction Right ventricular hypertrophy T wave abnormality, consider anterior ischemia Abnormal ECG
[2017-06-16] MEDS: Vancomycin 1 gm/NS 200 ml 1 GM/200 ML BAG IVPB SCH ×2 (01:09→15:00)
[2017-06-16] MEDS: Aztreonam 1 GM in Dextrose 5% In Water 100 ML IVPB SCH (05:56)
--- NOTE | 2017-06-16 07:24 | CP.PCM.PN ---
Subjective - Date & Time of Evaluation Date of Evaluation: 06/16/17 Time of Evaluation: 07:10 - Subjective Subjective: patient has no current chest pain or dyspnea Objective - Vital Signs/Intake and Output Vital Signs (last 24 hours): Temp Pulse Resp BP Pulse Ox 98.5 F 119 H 20 99/64 L 97 06/16/17 05:54 06/16/17 05:54 06/16/17 05:54 06/16/17 05:54 06/15/17 23:31 Intake and Output: 06/16/17 06/16/17 06:59 18:59 Intake Total 1680 Output Total 400 Balance 1280 - Medications Medications: Current Medications Acetaminophen (Tylenol 325mg Tab) 650 mg PO Q4 PRN PRN Reason: Fever 101 degrees fahrenheit Digoxin (Lanoxin) 0.25 mg IVP DAILY@1000 [facility] Docusate Sodium (Colace) 100 mg PO BID [facility] Last Admin: 06/15/17 18:15 Dose: 100 mg Enoxaparin Sodium (Lovenox) 30 mg SC Q12 [facility] Last Admin: 06/15/17 21:37 Dose: 30 mg Ergocalciferol (Drisdol 50,000 Intl Units Cap) 1 cap PO Q7D [facility] Stop: 06/27/17 12:16 Last Admin: 06/15/17 13:52 Dose: 1 cap Furosemide (Lasix) 20 mg PO DAILY [facility] Last Admin: 06/15/17 10:46 Dose: Not Given Hydromorphone HCl (Dilaudid) 0.5 mg IVP Q4H PRN PRN Reason: Pain, severe (8-10) Sodium Chloride (Sodium Chloride 0.9%) 1,000 mls @ 80 mls/hr IV .[id number] [facility] Last Admin: 06/15/17 18:20 Dose: 80 mls/hr Vancomycin/Sodium Chloride (Vancomycin 1 Gm/Ns 200 Ml) 1 gm in 200 mls @ 200 mls/hr IVPB Q12H [facility] Stop: 06/19/17 02:01 Last Admin: 06/16/17 01:09 Dose: 200 mls/hr Aztreonam 1 gm/ Dextrose 100 mls @ 100 mls/hr IVPB Q12H [facility] Last Admin: 06/16/17 05:56 Dose: 100 mls/hr Micafungin Sodium 100 mg/ (Dextrose) 100 mls @ 100 mls/hr IV Q24H [facility] Last Admin: 06/15/17 18:13 Dose: 100 mls/hr Oxycodone/Acetaminophen (Percocet 5/325 Mg Tab) 1 tab PO Q4 PRN PRN Reason: Pain, moderate (4-7) Stop: 06/16/17 16:29 Last Admin: 06/15/17 11:49 Dose: 1 tab - Labs Labs: 06/15/17 13:11 06/15/17 06:24 PT 23.5 SECONDS (9.7-12.2) H D 06/15/17 06:24 INR 2.0 D 06/15/17 06:24 - Constitutional Appears: Non-toxic - Head Exam Head Exam: NORMAL INSPECTION - Eye Exam Eye Exam: Normal appearance - ENT Exam ENT Exam: Mucous Membranes Moist - Neck Exam Neck Exam: Full ROM - Respiratory Exam Respiratory Exam: Decreased Breath Sounds - Cardiovascular Exam Cardiovascular Exam: Tachycardia, Irregular Rhythm - GI/Abdominal Exam GI & Abdominal Exam: Normal Bowel Sounds - Rectal Exam Rectal Exam: Deferred - Extremities Exam Extremities Exam: absent: Pedal Edema - Back Exam Back Exam: NORMAL INSPECTION - Neurological Exam Neurological Exam: Alert - Psychiatric Exam Psychiatric exam: Normal Affect - Skin Skin Exam: Normal Color Assessment and Plan (1) Atrial fibrillation Assessment & Plan: can add low dose cardizem 30 mg po q 6 hrs. continue antibiotics and volume repletion Status: Acute (2) PHT (pulmonary hypertension) Assessment & Plan: patient has severe pulmonary HTN with dilated RV seen on echo. clincally stable. takes meds for PAH as outpatient, but not on formulary here. Status: Acute
[2017-06-16 07:33] LABS: INR 1.6
[2017-06-16 07:47] LABS: CHLORIDE 105 mmol/L (98-107)
[2017-06-16 07:48] LABS: POTASSIUM 4.1 mmol/L (3.6-5.2); SODIUM 135 mmol/L (132-148)
[2017-06-16 07:50] LABS: AST/SGOT 55 U/L (17-59); BILIRUBIN,TOTAL 1.4 mg/dL (0.2-1.3); CARBON DIOXIDE 22 mmol/L (22-30); GFR AFRICAN-AMERICAN > 60
[2017-06-16 07:51] LABS: ALB/GLOB RATIO 0.9 (1.0-2.1); ALKALINE PHOSPHATASE 90 U/L (38-126); ALT/SGPT 40 U/L (21-72); BLOOD UREA NITROGEN 12 mg/dL (9-20); CALCIUM 7.5 mg/dl (8.6-10.4); GLUCOSE,RANDOM 90 mg/dL (75-110); MAGNESIUM 1.6 mg/dL (1.6-2.3); TOTAL PROTEIN 5.6 g/dL (6.3-8.3)
[2017-06-16 07:55] LABS: BASO # 0.1 K/uL (0.0-0.2); BASO % 0.5 % (0.0-2.0); EOS # 0.4 K/uL (0.0-0.7); EOS % 2.9 % (0.0-4.0); LYMPH % 14.3 % (20.0-40.0); MEAN CELL VOLUME 74.2 fL (80.0-94.0); MEAN CORPUSCULAR HEMOGLOBIN 25.2 pg (27.0-31.0); MEAN CORPUSCULAR HGB CONC 33.9 g/dL (33.0-37.0); MEAN PLATELET VOLUME 8.8 fL (7.2-11.7); MONO # 0.9 K/uL (0.0-0.8); MONO % 6.6 % (0.0-10.0); NRBC % 0.6 % (0.0-2.0); RED CELL DISTRIBUTION WIDTH 23.3 % (11.5-14.5); WHITE BLOOD COUNT 13.7 K/uL (4.8-10.8)
[2017-06-16] MEDS: Sodium Chloride 0.9% 1,000 ML IV SCH (08:00)
[2017-06-16] MEDS: Enoxaparin 30 mg Syringe SC SCH ×2 (10:30→22:44)
[2017-06-16] MEDS ORDERED: Sodium Chloride 0.9% 1,000 ML IV ONE (10:55)
[2017-06-16] MEDS: Digoxin 500 mcg/2ml (0.5 mg/2ml) Inj IVP SCH (11:01)
--- NOTE | 2017-06-16 11:03 | CP.PCM.PN ---
Subjective - Date & Time of Evaluation Date of Evaluation: 06/16/17 Time of Evaluation: 11:00 - Subjective Subjective: Patient states he is a little more SOB today and is coughing alittle. Pain in his left knee is improving. Objective - Vital Signs/Intake and Output Vital Signs (last 24 hours): Temp Pulse Resp BP Pulse Ox 98.2 F 126 H 20 97/61 L 97 06/16/17 08:37 06/16/17 08:37 06/16/17 08:37 06/16/17 08:37 06/16/17 08:37 Intake and Output: 06/16/17 06/16/17 06:59 18:59 Intake Total 1680 Output Total 400 Balance 1280 - Medications Medications: Current Medications Acetaminophen (Tylenol 325mg Tab) 650 mg PO Q4 PRN PRN Reason: Fever 101 degrees fahrenheit Digoxin (Lanoxin) 0.25 mg IVP DAILY@1000 [facility] Diltiazem HCl (Cardizem) 30 mg PO Q6H [facility] Docusate Sodium (Colace) 100 mg PO BID [facility] Last Admin: 06/16/17 09:18 Dose: 100 mg Enoxaparin Sodium (Lovenox) 30 mg SC Q12 [facility] Last Admin: 06/15/17 21:37 Dose: 30 mg Ergocalciferol (Drisdol 50,000 Intl Units Cap) 1 cap PO Q7D [facility] Stop: 06/27/17 12:16 Last Admin: 06/15/17 13:52 Dose: 1 cap Furosemide (Lasix) 20 mg PO DAILY [facility] Last Admin: 06/15/17 10:46 Dose: Not Given Hydromorphone HCl (Dilaudid) 0.5 mg IVP Q4H PRN PRN Reason: Pain, severe (8-10) Sodium Chloride (Sodium Chloride 0.9%) 1,000 mls @ 80 mls/hr IV .[id number] [facility] Last Admin: 06/15/17 18:20 Dose: 80 mls/hr Vancomycin/Sodium Chloride (Vancomycin 1 Gm/Ns 200 Ml) 1 gm in 200 mls @ 200 mls/hr IVPB Q12H [facility] Stop: 06/19/17 02:01 Last Admin: 06/16/17 01:09 Dose: 200 mls/hr Aztreonam 1 gm/ Dextrose 100 mls @ 100 mls/hr IVPB Q12H [facility] Last Admin: 06/16/17 05:56 Dose: 100 mls/hr Micafungin Sodium 100 mg/ (Dextrose) 100 mls @ 100 mls/hr IV Q24H [facility] Last Admin: 06/15/17 18:13 Dose: 100 mls/hr Sodium Chloride (Sodium Chloride 0.9%) 1,000 mls @ 1,000 mls/hr IV .Q1H [facility] Stop: 06/16/17 11:54 Oxycodone/Acetaminophen (Percocet 5/325 Mg Tab) 1 tab PO Q4 PRN PRN Reason: Pain, moderate (4-7) Stop: 06/16/17 16:29 Last Admin: 06/15/17 11:49 Dose: 1 tab Warfarin Sodium (Coumadin) 5 mg PO 1800 [facility] Stop: 06/16/17 18:01 - Labs Labs: 06/16/17 07:15 06/16/17 07:15 PT 17.8 SECONDS (9.7-12.2) H D 06/16/17 07:15 INR 1.6 06/16/17 07:15 - Extremities Exam Additional comments: LLE: dressing changed, dry, no erythema, swelling that was noted to ankle yesterday is improving with elevation and AROM. 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 due to transfusion, but with cough CXR ordered -Cont NWB -INR 2.0 to 1.6, 5mg coumadin and lovenox was restarted last night -cultures reviewed, prelim neg -ID f/u appreciated -d/c planning -above d/w Dr. loza, agrees with above Status: Acute
--- NOTE | 2017-06-16 12:57 | RAD ---
HISTORY: CHF COMPARISON: Comparison chest 06/14/2017. FINDINGS: LUNGS: Mild central pulmonary vascular congestive changes slightly progressed from prior study. Suspect developing small bilateral lower lobe alveolar-type infiltrates with bilateral effusions. PLEURA: As above. No pneumothorax apparent. CARDIOVASCULAR: Normal. OSSEOUS STRUCTURES: No significant abnormalities. VISUALIZED UPPER ABDOMEN: Normal. OTHER FINDINGS: None. IMPRESSION: Mild central pulmonary vascular congestive changes slightly progressed from prior study. Suspect developing small bilateral lower lobe alveolar-type infiltrates with bilateral effusions.
--- NOTE | 2017-06-16 13:02 | CP.PCM.PN ---
Subjective - Date & Time of Evaluation Date of Evaluation: 06/16/17 Time of Evaluation: 12:59 - Subjective Subjective: Pt awake, alert. Agree with PA note. Appreciate cardiology input. Monitor HR Possible d/c tomorrow to rehab Objective - Vital Signs/Intake and Output Vital Signs (last 24 hours): Temp Pulse Resp BP Pulse Ox 98.2 F 126 H 20 97/61 L 97 06/16/17 08:37 06/16/17 08:37 06/16/17 08:37 06/16/17 08:37 06/16/17 08:37 Intake and Output: 06/16/17 06/16/17 06:59 18:59 Intake Total 1680 Output Total 400 Balance 1280 - Medications Medications: Current Medications Acetaminophen (Tylenol 325mg Tab) 650 mg PO Q4 PRN PRN Reason: Fever 101 degrees fahrenheit Digoxin (Lanoxin) 0.25 mg IVP DAILY@1000 [facility] Last Admin: 06/16/17 11:01 Dose: 0.25 mg Diltiazem HCl (Cardizem) 30 mg PO Q6H [facility] Last Admin: 06/16/17 12:00 Dose: 30 mg Docusate Sodium (Colace) 100 mg PO BID [facility] Last Admin: 06/16/17 09:18 Dose: 100 mg Enoxaparin Sodium (Lovenox) 30 mg SC Q12 [facility] Last Admin: 06/16/17 10:30 Dose: 30 mg Ergocalciferol (Drisdol 50,000 Intl Units Cap) 1 cap PO Q7D [facility] Stop: 06/27/17 12:16 Last Admin: 06/15/17 13:52 Dose: 1 cap Furosemide (Lasix) 20 mg PO DAILY [facility] Last Admin: 06/15/17 10:46 Dose: Not Given Hydromorphone HCl (Dilaudid) 0.5 mg IVP Q4H PRN PRN Reason: Pain, severe (8-10) Sodium Chloride (Sodium Chloride 0.9%) 1,000 mls @ 80 mls/hr IV .[id number] [facility] Last Admin: 06/16/17 08:00 Dose: Not Given Vancomycin/Sodium Chloride (Vancomycin 1 Gm/Ns 200 Ml) 1 gm in 200 mls @ 200 mls/hr IVPB Q12H [facility] Stop: 06/19/17 02:01 Last Admin: 06/16/17 01:09 Dose: 200 mls/hr Micafungin Sodium 100 mg/ (Dextrose) 100 mls @ 100 mls/hr IV Q24H [facility] Last Admin: 06/15/17 18:13 Dose: 100 mls/hr Aztreonam 1 gm/ Sodium (Chloride) 100 mls @ 100 mls/hr IVPB Q12H [facility] Oxycodone/Acetaminophen (Percocet 5/325 Mg Tab) 1 tab PO Q4 PRN PRN Reason: Pain, moderate (4-7) Stop: 06/16/17 16:29 Last Admin: 06/15/17 11:49 Dose: 1 tab Warfarin Sodium (Coumadin) 5 mg PO 1800 [facility] Stop: 06/16/17 18:01 - Labs Labs: 06/16/17 07:15 06/16/17 07:15 PT 17.8 SECONDS (9.7-12.2) H D 06/16/17 07:15 INR 1.6 06/16/17 07:15
--- NOTE | 2017-06-16 13:39 | CP.PCM.PN ---
Subjective - Date & Time of Evaluation Date of Evaluation: 06/16/17 Time of Evaluation: 07:00 - Subjective Subjective: Patient has been seen and examined. Patient does complain of SOB with is improved with oxygen administration. He also complains of a productive cough. He denies any fevers, chest pain, chills, palpitations, abdominal pain, changes in urinary symptoms, or changes in bowel habits. Objective - Vital Signs/Intake and Output Vital Signs (last 24 hours): Temp Pulse Resp BP Pulse Ox 98.2 F 126 H 20 97/61 L 97 06/16/17 08:37 06/16/17 08:37 06/16/17 08:37 06/16/17 08:37 06/16/17 08:37 Intake and Output: 06/16/17 06/16/17 06:59 18:59 Intake Total 1680 Output Total 400 Balance 1280 - Medications Medications: Current Medications Acetaminophen (Tylenol 325mg Tab) 650 mg PO Q4 PRN PRN Reason: Fever 101 degrees fahrenheit Digoxin (Lanoxin) 0.25 mg IVP DAILY@1000 [facility] Last Admin: 06/16/17 11:01 Dose: 0.25 mg Diltiazem HCl (Cardizem) 30 mg PO Q6H [facility] Last Admin: 06/16/17 12:00 Dose: 30 mg Docusate Sodium (Colace) 100 mg PO BID [facility] Last Admin: 06/16/17 09:18 Dose: 100 mg Enoxaparin Sodium (Lovenox) 30 mg SC Q12 [facility] Last Admin: 06/16/17 10:30 Dose: 30 mg Ergocalciferol (Drisdol 50,000 Intl Units Cap) 1 cap PO Q7D [facility] Stop: 06/27/17 12:16 Last Admin: 06/15/17 13:52 Dose: 1 cap Furosemide (Lasix) 20 mg PO DAILY [facility] Last Admin: 06/15/17 10:46 Dose: Not Given Hydromorphone HCl (Dilaudid) 0.5 mg IVP Q4H PRN PRN Reason: Pain, severe (8-10) Sodium Chloride (Sodium Chloride 0.9%) 1,000 mls @ 80 mls/hr IV .[id number] [facility] Last Admin: 06/16/17 08:00 Dose: Not Given Vancomycin/Sodium Chloride (Vancomycin 1 Gm/Ns 200 Ml) 1 gm in 200 mls @ 200 mls/hr IVPB Q12H [facility] Stop: 06/19/17 02:01 Last Admin: 06/16/17 01:09 Dose: 200 mls/hr Micafungin Sodium 100 mg/ (Dextrose) 100 mls @ 100 mls/hr IV Q24H [facility] Last Admin: 06/15/17 18:13 Dose: 100 mls/hr Aztreonam 1 gm/ Sodium (Chloride) 100 mls @ 100 mls/hr IVPB Q12H [facility] Oxycodone/Acetaminophen (Percocet 5/325 Mg Tab) 1 tab PO Q4 PRN PRN Reason: Pain, moderate (4-7) Stop: 06/16/17 16:29 Last Admin: 06/15/17 11:49 Dose: 1 tab Warfarin Sodium (Coumadin) 5 mg PO 1800 [facility] Stop: 06/16/17 18:01 - Labs Labs: 06/16/17 07:15 06/16/17 07:15 PT 17.8 SECONDS (9.7-12.2) H D 06/16/17 07:15 INR 1.6 06/16/17 07:15 - Constitutional Appears: Non-toxic - Head Exam Head Exam: ATRAUMATIC, NORMAL INSPECTION, NORMOCEPHALIC - Eye Exam Eye Exam: EOMI, Normal appearance - ENT Exam ENT Exam: Mucous Membranes Moist - Neck Exam Neck Exam: absent: Lymphadenopathy Assessment and Plan - Assessment and Plan (Free Text) Assessment: 71 year old male with history of PE, severe pulm. 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 Plan: s/p knee replacement removal for septic joint * F/U BC - negative to date * F/U WC - negative to date * Aztreonam 1 Q12 * Micafungin 100 IV QD * Vanco 1 IV Q12 * Dilaudid 0.5 IVP Q4 PRN * Perc 5/325 PO Q4 PRN * dressing changed yesterday Hypotension * likely hypovolemic * NS @ 80 * 1L fluid bolus NS given today * CXR after every fluid bolus. * per PMD patient's baseline is 90-100/60-70. So he is currently at his baseline Anemia - * Patient's HgB is 8.1 today. Per PMD (Dr. Isaak Ge) he is normaly around 11. We will give 2 units of blood slowly Hx of PE * warfarin held today * INR 1.6 today. * Will start Lovenox and bridge to warfarin. Severe Pulmonary HTN Patient has medications from home. We will hold for now due to low BP. Currently Satting at 97% with 4L of oxygen A-fib Digoxin 0.25 IVP Daily started Hx of CHF * echo * EF 59, severe pulm HTN * lasix 20 PO QD * portable CXR ordered post 1 liter bolus. * Digoxin 0.25 IVP Daily started PPX * Tylenol 650 mg PO Q4 * Colace 100 PO BID * Lovenox 40 SC QD Patient seen and discussed with Attending Humble Holm PGY-1
--- NOTE | 2017-06-16 16:36 | CP.PCM.PN ---
Subjective - Date & Time of Evaluation Date of Evaluation: 06/16/17 Time of Evaluation: 16:36 - Subjective Subjective: CHIEF COMPLAINTS TODAY : afebrile, C/O SOB/ AND COUGH. DENIES CHEST PAIN lESS PAIN POSTOPERATIVE SITE. ROS. HEENT : N. Resp : +VE SOB wheezing, +VE COUGH Cardio : No CP, PND orthopnea GI : No abd. 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 Musculoskel : POSTOPERATIVE /LEFT KNEE, LEG IN SOFT CAST Ext. : Pedal pulses intact, no edema or calf pain Derm : N Psych : N. PE. Pt. is alert awake in no distress. V.S As noted in the chart Head ,ear nose,throat and eyes : Normal. Neck : Supple with normal carotids. Lungs: BIBASILAR RALES Heart : S1 & S2 IRREGULAR , TACHYCARDIA Abd : Soft non tender with normal bowel sounds. Neuro : Moves all ext. with no localized deficit. Ext : No edema with intact pulses RT LEG. POSTOPERATIVE LEFT KNEE AND LEG IN SOFT CAST Derm;: No rashes or decubitus ulcer. Radiology/Labs . VANCO TROUGH 16.1.-OK. CK 182. wbc 13.3 H/H 8.1/24.0 PLT 155. CXR. right PICC line tip in SVC. PVC with bilateral lower lobe alveolar type infiltrates/bilateral effusions Right more than left. Creatinine 0.9/bun 2 LFT BILI 1.4 REVIEWED 06/13/17 LEFT KNEE ASPIRATE Many PMNs and rare yeast.- pending culture 06/13/17 left knee tissue -no growth so far. Objective - Vital Signs/Intake and Output Vital Signs (last 24 hours): Temp Pulse Resp BP Pulse Ox 98.2 F 126 H 20 97/61 L 97 06/16/17 08:37 06/16/17 08:37 06/16/17 08:37 06/16/17 08:37 06/16/17 08:37 Intake and Output: 06/16/17 06/16/17 06:59 18:59 Intake Total 1680 Output Total 400 Balance 1280 - Medications Medications: Current Medications Acetaminophen (Tylenol 325mg Tab) 650 mg PO Q4 PRN PRN Reason: Fever 101 degrees fahrenheit Digoxin (Lanoxin) 0.25 mg IVP DAILY@1000 [facility] Last Admin: 06/16/17 11:01 Dose: 0.25 mg Diltiazem HCl (Cardizem) 30 mg PO Q6H [facility] Last Admin: 06/16/17 12:00 Dose: 30 mg Docusate Sodium (Colace) 100 mg PO BID [facility] Last Admin: 06/16/17 09:18 Dose: 100 mg Enoxaparin Sodium (Lovenox) 30 mg SC Q12 [facility] Last Admin: 06/16/17 10:30 Dose: 30 mg Ergocalciferol (Drisdol 50,000 Intl Units Cap) 1 cap PO Q7D [facility] Stop: 06/27/17 12:16 Last Admin: 06/15/17 13:52 Dose: 1 cap Furosemide (Lasix) 20 mg PO DAILY [facility] Last Admin: 06/16/17 11:00 Dose: Not Given Hydromorphone HCl (Dilaudid) 0.5 mg IVP Q4H PRN PRN Reason: Pain, severe (8-10) Sodium Chloride (Sodium Chloride 0.9%) 1,000 mls @ 80 mls/hr IV .[id number] [facility] Last Admin: 06/16/17 08:00 Dose: Not Given Vancomycin/Sodium Chloride (Vancomycin 1 Gm/Ns 200 Ml) 1 gm in 200 mls @ 200 mls/hr IVPB Q12H [facility] Stop: 06/19/17 02:01 Last Admin: 06/16/17 15:00 Dose: 200 mls/hr Micafungin Sodium 100 mg/ (Dextrose) 100 mls @ 100 mls/hr IV Q24H [facility] Last Admin: 06/15/17 18:13 Dose: 100 mls/hr Aztreonam 1 gm/ Sodium (Chloride) 100 mls @ 100 mls/hr IVPB Q12H [facility] Warfarin Sodium (Coumadin) 5 mg PO 1800 [facility] Stop: 06/16/17 18:01 - Labs Labs: 06/16/17 07:15 06/16/17 07:15 PT 17.8 SECONDS (9.7-12.2) H D 06/16/17 07:15 INR 1.6 06/16/17 07:15 Assessment and Plan (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 synovial fluid wbc's 15,318, 93% neutrophils .RBCs 77,990. Gram stain synovial fluid aspirated; many WBCs, yeast positive. CULTURE PENDING-so far negative. . Continue IV Vanco 1 g every 12 hourly 06/13/17. ON IV Mycamine 100 mg IV piggyback every 24 hourly.06/13/17 ON IV Azactam 1 g every 12 hourly for gram-negative coverage for now. 06/13/17. follow-up renal functions closely. . Patient will need 6 weeks of IV antibiotics with follow-up cultures. Awaiting final cultures to adjust antibiotics. Will discuss with orthopedic Dr. Cedillo. Status: Acute (2) PHT (pulmonary hypertension) Assessment & Plan: chest x-ray consistent with basilar congestion and by basilar effusions ? Early pneumonia. Will get sputum Gram stain and culture. Check d-dimer. Continue IV Azactam/IV Vanco/and IV micafungin. PATIENT SEEN BY KIDS ACTIVITIES COACH. PLACED ON BIPAP. PATIENT TO BE STARTED ON HIS PULMONARY HYPERTENSIVE MEDICATIONS PER PULMONARY. PATIENT'S AT THE BEDSIDE. Status: Acute (3) Osteoarthritis Status: Acute (4) Atrial fibrillation Status: Acute
[2017-06-16] MEDS: Aztreonam 1 GM in Sodium Chloride 0.9% 100 ML IVPB SCH (18:38)
[2017-06-16] MEDS: Micafungin 100 MG in Dextrose 5% In Water 100 ML IV SCH (18:40)
--- NOTE | 2017-06-16 18:47 | RAD ---
HISTORY: sob cough COMPARISON: Comparison made with plain film radiographs chest 06/16/2017 at 11:19 a.m. FINDINGS: Re- demonstrated is in situ right-sided PICC line tip in the SVC LUNGS: Re- demonstrated are pulmonary vascular congestive changes with bilateral lower lobe alveolar-type infiltrates and bilateral effusions right larger than left. PLEURA: No significant pleural effusion identified, no pneumothorax apparent. CARDIOVASCULAR: Cardiomegaly. OSSEOUS STRUCTURES: No significant abnormalities. VISUALIZED UPPER ABDOMEN: Normal. OTHER FINDINGS: None. IMPRESSION: Re- demonstrated are pulmonary vascular congestive changes with bilateral lower lobe alveolar-type infiltrates and bilateral effusions right larger than left.
[2017-06-17] MEDS: Vancomycin 1 gm/NS 200 ml 1 GM/200 ML BAG IVPB SCH ×2 (01:16→13:24)
[2017-06-17 01:26] VITALS: RESP 20
[2017-06-17 04:32] LABS: BASO % 0.3 % (0.0-2.0); EOS # 0.5 K/uL (0.0-0.7); HEMATOCRIT 25.7 % (35.0-51.0); LYMPH # 1.3 K/uL (1.0-4.3); LYMPH % 9.4 % (20.0-40.0); MEAN CELL VOLUME 74.9 fL (80.0-94.0); MEAN CORPUSCULAR HEMOGLOBIN 25.3 pg (27.0-31.0); MEAN CORPUSCULAR HGB CONC 33.8 g/dL (33.0-37.0); MEAN PLATELET VOLUME 8.7 fL (7.2-11.7); MONO % 7.7 % (0.0-10.0); NRBC % 0.7 % (0.0-2.0); PLATELET COUNT 174 K/uL (130-400); RED CELL DISTRIBUTION WIDTH 23.4 % (11.5-14.5); WHITE BLOOD COUNT 13.4 K/uL (4.8-10.8)
[2017-06-17 04:40] LABS: INR 1.6
[2017-06-17 04:50] LABS: CHLORIDE 108 mmol/L (98-107); SODIUM 136 mmol/L (132-148)
[2017-06-17 04:51] LABS: POTASSIUM 3.6 mmol/L (3.6-5.2)
[2017-06-17 04:53] LABS: CARBON DIOXIDE 23 mmol/L (22-30); GFR AFRICAN-AMERICAN > 60
[2017-06-17 04:54] LABS: BLOOD UREA NITROGEN 10 mg/dL (9-20); CALCIUM 7.6 mg/dl (8.6-10.4); GLUCOSE,RANDOM 82 mg/dL (75-110)
[2017-06-17] MEDS: Aztreonam 1 GM in Sodium Chloride 0.9% 100 ML IVPB SCH ×2 (05:30→19:30)
[2017-06-17 06:12] LABS: EOSINOPHIL 7 % (0-4); NEUTROPHIL 61 % (50-75); NUCLEATED RED BLOOD CELL 1 % (0-0); REACTIVE LYMPHOCYTES 7 % (0-0); TOTAL CELLS COUNTED 100
[2017-06-17 06:34] LABS: SPHEROCYTES MODERATE
[2017-06-17] MEDS ORDERED: Ipratropium 0.02% Inhal Soln (0.5 mg/2.5 ml) UD IH STA (09:51)
[2017-06-17] MEDS: Digoxin 500 mcg/2ml (0.5 mg/2ml) Inj IVP SCH (10:08)
[2017-06-17] MEDS: Enoxaparin 30 mg Syringe SC SCH (10:09)
--- NOTE | 2017-06-17 10:15 | CARD ---
APPROVED REPORT EKG Measurement Heart [id number] <Conclusion> Atrial fibrillation with rapid ventricular response Possible Right ventricular hypertrophy Nonspecific T wave abnormality Abnormal ECG
[2017-06-17] MEDS: Ipratropium 0.02% Inhal Soln (0.5 mg/2.5 ml) UD IH SCH ×3 (10:33→19:53)
[2017-06-17] MEDS: Digoxin 250 mcg (0.25 mg) Tab PO SCH (13:13)
[2017-06-17 13:51] LABS: BASO # 0.1 K/uL (0.0-0.2); BASO % 0.7 % (0.0-2.0); EOS # 0.3 K/uL (0.0-0.7); EOS % 2.3 % (0.0-4.0); HEMATOCRIT 31.9 % (35.0-51.0); LYMPH # 1.5 K/uL (1.0-4.3); LYMPH % 10.9 % (20.0-40.0); MEAN CELL VOLUME 76.4 fL (80.0-94.0); MEAN CORPUSCULAR HEMOGLOBIN 25.4 pg (27.0-31.0); MEAN CORPUSCULAR HGB CONC 33.3 g/dL (33.0-37.0); MEAN PLATELET VOLUME 8.6 fL (7.2-11.7); MONO # 0.8 K/uL (0.0-0.8); MONO % 6.2 % (0.0-10.0); NRBC % 1.2 % (0.0-2.0); RED CELL DISTRIBUTION WIDTH 22.7 % (11.5-14.5); WHITE BLOOD COUNT 13.3 K/uL (4.8-10.8)
--- NOTE | 2017-06-17 14:55 | CP.PCM.PN ---
Subjective - Date & Time of Evaluation Date of Evaluation: 06/17/17 Time of Evaluation: 09:00 - Subjective Subjective: Dr. Correa note: Patient seen and examined in room. He is complaning of shortness of breath and weakness. He shows me some of his home medication for pulmonary hypertension. Patient is a 71 year old male post infection knee replacement removal. He also has been transfused 2 units of PRBCs. Objective - Vital Signs/Intake and Output Vital Signs (last 24 hours): Temp Pulse Resp BP Pulse Ox 97.4 F L 80 20 108/70 96 06/17/17 07:50 06/17/17 10:35 06/17/17 07:50 06/17/17 10:10 06/17/17 00:35 Intake and Output: 06/17/17 06/17/17 06:59 18:59 Intake Total 1835 300 Output Total 600 Balance 1235 300 - Medications Medications: Current Medications Acetaminophen (Tylenol 325mg Tab) 650 mg PO Q4 PRN PRN Reason: Fever 101 degrees fahrenheit Digoxin (Lanoxin) 0.25 mg PO DAILY [facility] Last Admin: 06/17/17 13:13 Dose: Not Given Docusate Sodium (Colace) 100 mg PO BID [facility] Last Admin: 06/17/17 10:07 Dose: 100 mg Enoxaparin Sodium (Lovenox) 60 mg SC Q12 [facility] Ergocalciferol (Drisdol 50,000 Intl Units Cap) 1 cap PO Q7D [facility] Stop: 06/27/17 12:16 Last Admin: 06/15/17 13:52 Dose: 1 cap Furosemide (Lasix) 20 mg PO DAILY [facility] Last Admin: 06/17/17 10:10 Dose: 20 mg Hydromorphone HCl (Dilaudid) 0.5 mg IVP Q4H PRN PRN Reason: Pain, severe (8-10) Vancomycin/Sodium Chloride (Vancomycin 1 Gm/Ns 200 Ml) 1 gm in 200 mls @ 200 mls/hr IVPB Q12H [facility] Stop: 06/19/17 02:01 Last Admin: 06/17/17 13:24 Dose: 200 mls/hr Aztreonam 1 gm/ Sodium (Chloride) 100 mls @ 100 mls/hr IVPB Q12H [facility] Last Admin: 06/17/17 05:30 Dose: 100 mls/hr Micafungin Sodium 100 mg/ (Sodium Chloride) 100 mls @ 100 mls/hr IV Q24H [facility] Ipratropium [place] (Atrovent) 0.5 mg IH RQ6 [facility] Last Admin: 06/17/17 13:12 Dose: Not Given Levalbuterol HCl (Xopenex) 0.63 mg INH STAT ONE Stop: 06/17/17 12:09 - Labs Labs: 06/17/17 13:42 06/17/17 04:28 PT 17.8 SECONDS (9.7-12.2) H 06/17/17 04:28 INR 1.6 06/17/17 04:28 - Constitutional Appears: In Acute Distress - ENT Exam ENT Exam: Mucous Membranes Moist - Respiratory Exam Respiratory Exam: Wheezes. absent: Clear to Ausculation Bilateral, Rales, Rhonchi - Cardiovascular Exam Cardiovascular Exam: REGULAR RHYTHM, RRR, +S1, +S2 - GI/Abdominal Exam GI & Abdominal Exam: Soft, Normal Bowel Sounds. absent: Tenderness - Extremities Exam Extremities Exam: Pedal Edema - Back Exam Back Exam: CVA tenderness (L), CVA tenderness (R) - Neurological Exam Neurological Exam: Alert - Skin Skin Exam: Dry, Normal Color, Warm Assessment and Plan - Assessment and Plan (Free Text) Assessment: Assessment: 71 year old male s/p septic knee replacement, is short of breathing and wheezing today, starting him on Atrovent, also gave one time of Xopenex, BIPAP as well. patient refused repeat chest x:ray. Plan: continue his IV antibiotics s/p knee replacement removal for septic joint 06/17: continue IV antibiotics. * * F/U BC - negative to date * F/U WC - negative to date * Aztreonam 1 Q12 * Micafungin 100 IV QD * Vanco 1 IV Q12 * Dilaudid 0.5 IVP Q4 PRN * Perc 5/325 PO Q4 PRN * dressing changed yesterday Hypotension 06/17: BP improved with fluids, * likely hypovolemic * NS @ 80 * 1L fluid bolus NS given today * CXR after every fluid bolus. * per PMD patient's baseline is 90-100/60-70. So he is currently at his baseline Anemia - * 06/17: Hbg is 10.6 post transfusion. * Patient's HgB is 8.1 today. Per PMD (Dr. Isaak Ge) he is normaly around 11. We will give 2 units of blood slowly Hx of PE * 06/17: Warfarin given today, theraputic Lovenox started * warfarin held today * INR 1.6 today. * Will start Lovenox and bridge to warfarin. Severe Pulmonary HTN 06/17: Will allow patient to continue his home medication, Dr. Cummins consulted for pulm help appreicated. Patient has medications from home. We will hold for now due to low BP. Currently Satting at 97% with 4L of oxygen A-fib 06/17: Dig level normal, continue to monitor on tele. Digoxin 0.25 IVP Daily started Hx of CHF 06/17: a little fluid overloaded, continue Dig and Lasix * echo * EF 59, severe pulm HTN * lasix 20 PO QD * portable CXR ordered post 1 liter bolus. * Digoxin 0.25 IVP Daily started PPX * Tylenol 650 mg PO Q4 * Colace 100 PO BID * Lovenox 60 BID
[2017-06-17] MEDS ORDERED: Albuterol 0.042% Inhal Sol (1.25 mg/3 mL) UD INH STA (15:55)
--- NOTE | 2017-06-17 17:41 | CP.PCM.CON ---
History of Present Illness - History of Present Illness History of Present Illness: Chief complaint: Shortness of breath History of present illness: 71-year-old male with history of congestive heart failure, severe pulmonary hypertension, admitted to the hospital following the removal of infected left knee prosthesis. Postoperatively patient had an episode of low blood pressure, hypertension, anemia and received a blood transfusion. Patient is at least at the units of blood transition so far. Today he had an episode of shortness of breath more than usual. Pulmonary evaluation was called. Patient had a history of severe pulmonary hypertension, was taking anticoagulation, and medications for a primary pulmonary hypertension Past medical history: Pulmonary hypertension, heart failure Surgical history prostatectomy, left knee replacement Allergic to cephalexin. Medications noted from the chart. Patient used to take Coumadin, Tadalafil, bosentan, Lasix. Patient is a history of smoking in the past quit many years ago. Denies any alcohol Review of system: Patient is currently also having hard of hearing, using a hearing aid. No chest pain. Mild exertional dyspnea noted. No chest pain. Splint on the left leg noted. On examination: Vital signs noted, mild tachycardia noted, atrial fibrillation present. Patient also has a mild tachypnea. Chest good air entry regular her son. Abdomen soft nontender. Bilateral pedal edema noted. Patient's today's labs reviewed Hemoglobin is 10.6. Chemistries nonspecific, renal functions is normal. Chest x-rays showing mild vascular prominence, congestion noted, prominent pulmonary arteries Discussion is currently on Lovenox, digoxin, Lasix, aztreonam, micafungin, vancomycin. Assessment and recommendation: 71-year-old male with history of pulmonary hypertension, infected left knee prosthesis. Anemia, unclear source. Pulmonary evaluation was called for pulmonary hypertension. Currently he is not taking his anti-pulmonary hypertension medication. He suggested that the patient should be on his home medications. Oxygen. BiPAP. Anti-coagulation. Fluid control. Will follow the patient. Past Patient History - Past Medical History & Family History Past Medical History?: Yes Past Family History: Reviewed and not pertinent - Past Social History Smoking Status: Never Smoked - CARDIAC Hx Cardiac Disorders: Yes Hx Congestive Heart Failure: Yes (2002) Hx Peripheral Edema: Yes - PULMONARY Hx Respiratory Disorders: Yes (pulmonary hypertension) Hx Pneumonia: Yes (aug 2016) - NEUROLOGICAL Hx Neurological Disorder: Yes Hx Dizziness: Yes Hx Meningitis: Yes (1999) - HEENT Hx HEENT Problems: Yes Hx Cataracts: Yes (bilat iol) - RENAL Hx Chronic Kidney Disease: No - ENDOCRINE/METABOLIC Hx Endocrine Disorders: No - HEMATOLOGICAL/ONCOLOGICAL Hx Blood Disorders: Yes Hx Blood Transfusions: Yes Hx Blood Transfusion Reaction: No Hx Sickle Cell Disease: Yes - INTEGUMENTARY Hx Dermatological Problems: No - MUSCULOSKELETAL/RHEUMATOLOGICAL Hx Musculoskeletal Disorders: Yes Hx Osteoarthritis: Yes - GASTROINTESTINAL Hx Gastrointestinal Disorders: No - GENITOURINARY/GYNECOLOGICAL Hx Genitourinary Disorders: No - PSYCHIATRIC Hx Psychophysiologic Disorder: No - SURGICAL HISTORY Hx Surgeries: Yes Hx Cataract Extraction: Yes Hx Cardiac Catheterization: Yes Hx Herniorrhaphy: Yes (left ing) Hx Joint Replacement: Yes (left knee) Other/Comment: cochlear implant left ear - ANESTHESIA Hx Anesthesia: Yes Hx Anesthesia Reactions: No Hx Malignant Hyperthermia: No Has any member of the family had a problem w/ anesthesia?: No Meds Allergies/Adverse Reactions: Allergies Allergy/AdvReac Type Severity Reaction Status Date / Time cephalexin [From Keflex] Allergy Intermediate ITCHING Verified 06/07/17 08:31 - Medications Medications: Current Medications Acetaminophen (Tylenol 325mg Tab) 650 mg PO Q4 PRN PRN Reason: Fever 101 degrees fahrenheit Digoxin (Lanoxin) 0.25 mg PO DAILY [facility] Last Admin: 06/17/17 13:13 Dose: Not Given Docusate Sodium (Colace) 100 mg PO BID [facility] Last Admin: 06/17/17 10:07 Dose: 100 mg Enoxaparin Sodium (Lovenox) 60 mg SC Q12 [facility] Ergocalciferol (Drisdol 50,000 Intl Units Cap) 1 cap PO Q7D [facility] Stop: 06/27/17 12:16 Last Admin: 06/15/17 13:52 Dose: 1 cap Furosemide (Lasix) 20 mg PO DAILY [facility] Last Admin: 06/17/17 10:10 Dose: 20 mg Hydromorphone HCl (Dilaudid) 0.5 mg IVP Q4H PRN PRN Reason: Pain, severe (8-10) Vancomycin/Sodium Chloride (Vancomycin 1 Gm/Ns 200 Ml) 1 gm in 200 mls @ 200 mls/hr IVPB Q12H [facility] Stop: 06/19/17 02:01 Last Admin: 06/17/17 13:24 Dose: 200 mls/hr Aztreonam 1 gm/ Sodium (Chloride) 100 mls @ 100 mls/hr IVPB Q12H [facility] Last Admin: 06/17/17 05:30 Dose: 100 mls/hr Micafungin Sodium 100 mg/ (Sodium Chloride) 100 mls @ 100 mls/hr IV Q24H [facility] Ipratropium [place] (Atrovent) 0.5 mg IH RQ6 [facility] Last Admin: 06/17/17 13:12 Dose: Not Given Results - Vital Signs Recent Vital Signs: Last Vital Signs Temp 98.5 F 06/17/17 15:00 Pulse 80 06/17/17 16:42 Resp 20 06/17/17 15:00 BP 118/64 06/17/17 15:00 Pulse Ox 96 06/17/17 15:00 - Labs Result Diagrams: 06/17/17 13:42 06/17/17 04:28 Labs: Laboratory Results - last 24 hr 06/16/17 06/17/17 06/17/17 21:19 04:28 04:28 WBC RBC Hgb Hct MCV MCH MCHC RDW Plt Count MPV Neut % (Auto) Lymph % (Auto) [place] % (Auto) Eos % (Auto) Baso % (Auto) Neut # Lymph # [place] # Eos # Baso # Neutrophils % (Manual) Lymphocytes % (Manual) Reactive Lymphs % Monocytes % (Manual) Eosinophils % (Manual) Nucleated RBC % Platelet Estimate Poikilocytosis (manual Anisocytosis (manual) Microcytosis (manual) Spherocytes Target Cells Schistocytes PT INR D-Dimer, Quantitative 2843 H Sodium 136 Potassium 3.6 Chloride 108 H Carbon Dioxide 23 Anion Gap 9 L BUN 10 Creatinine 0.8 Est GFR ( Amer) > 60 Est GFR (Non-Af Amer) > 60 Random Glucose 82 Calcium 7.6 L Digoxin Blood Type O POSITIVE Antibody Screen Negative 06/17/17 06/17/17 06/17/17 04:28 04:28 13:42 WBC 13.4 H RBC 3.43 L Hgb 8.7 L Hct 25.7 L MCV 74.9 L MCH 25.3 L MCHC 33.8 RDW 23.4 H Plt Count 174 MPV 8.7 Neut % (Auto) 78.6 H Lymph % (Auto) 9.4 L [place] % (Auto) 7.7 Eos % (Auto) 4.0 Baso % (Auto) 0.3 Neut # 10.6 H Lymph # 1.3 [place] # 1.0 H Eos # 0.5 Baso # 0.0 Neutrophils % (Manual) 61 Lymphocytes % (Manual) 16 L Reactive Lymphs % 7 H Monocytes % (Manual) 9 Eosinophils % (Manual) 7 H Nucleated RBC % 1 H Platelet Estimate Normal Poikilocytosis (manual Marked Anisocytosis (manual) Marked Microcytosis (manual) Marked Spherocytes Moderate Target Cells Marked Schistocytes Moderate PT 17.8 H INR 1.6 D-Dimer, Quantitative Sodium Potassium Chloride Carbon Dioxide Anion Gap BUN Creatinine Est GFR ( Amer) Est GFR (Non-Af Amer) Random Glucose Calcium Digoxin 1.4 Blood Type Antibody Screen 06/17/17 13:42 WBC 13.3 H RBC 4.18 L Hgb 10.6 L Hct 31.9 L MCV 76.4 L MCH 25.4 L MCHC 33.3 RDW 22.7 H Plt Count 199 MPV 8.6 Neut % (Auto) 79.9 H Lymph % (Auto) 10.9 L [place] % (Auto) 6.2 Eos % (Auto) 2.3 Baso % (Auto) 0.7 Neut # 10.7 H Lymph # 1.5 [place] # 0.8 Eos # 0.3 Baso # 0.1 Neutrophils % (Manual) Lymphocytes % (Manual) Reactive Lymphs % Monocytes % (Manual) Eosinophils % (Manual) Nucleated RBC % Platelet Estimate Poikilocytosis (manual Anisocytosis (manual) Microcytosis (manual) Spherocytes Target Cells Schistocytes PT INR D-Dimer, Quantitative Sodium Potassium Chloride Carbon Dioxide Anion Gap BUN Creatinine Est GFR ( Amer) Est GFR (Non-Af Amer) Random Glucose Calcium Digoxin Blood Type Antibody Screen
[2017-06-17] MEDS: SODIUM CHLORIDE IV SCH (18:33)
[2017-06-17] MEDS: MICAFUNGIN IV SCH (18:33)
--- NOTE | 2017-06-17 20:00 | CP.PCM.PN ---
Subjective - Date & Time of Evaluation Date of Evaluation: 06/17/17 Time of Evaluation: 20:00 - Subjective Subjective: CHIEF COMPLAINTS TODAY : EVENTS NOTED. C/O SOB EARLIER PLACED ON BIPAP. SEEN BY PULMONARY WAS NOT TAKING HIS PHT MEDS. lESS PAIN POSTOPERATIVE SITE. ROS. HEENT : N. Resp : +VE SOB wheezing, +VE COUGH Cardio : No CP, PND orthopnea GI : No abd. 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 Musculoskel : POSTOPERATIVE /LEFT KNEE, LEG IN SOFT CAST Ext. : Pedal pulses intact, no edema or calf pain Derm : N Psych : N. PE. Pt. is alert awake in no distress. V.S As noted in the chart Head ,ear nose,throat and eyes : Normal. Neck : Supple with normal carotids. Lungs: EXPIRATORY WHEEZE Heart : S1 & S2 IRREGULAR , TACHYCARDIA Abd : Soft non tender with normal bowel sounds. Neuro : Moves all ext. with no localized deficit. Ext : No edema with intact pulses RT LEG. POSTOPERATIVE LEFT KNEE AND LEG IN SOFT CAST Derm;: No rashes or decubitus ulcer. Radiology/Labs . VANCO TROUGH 16.1.-OK. CK 182. wbc 13.3 H/H 10.6, platelets 199. CXR. right PICC line tip in SVC. PVC with bilateral lower lobe alveolar type infiltrates/bilateral effusions Right more than left. Creatinine 0.8/bun 10 LFT BILI 1.4 REVIEWED 06/13/17 LEFT KNEE ASPIRATE Many PMNs and rare yeast.- pending culture 06/13/17 left knee tissue -no growth so far. Objective - Vital Signs/Intake and Output Vital Signs (last 24 hours): Temp Pulse Resp BP Pulse Ox 98.5 F 80 20 118/64 96 06/17/17 15:00 06/17/17 16:42 06/17/17 15:00 06/17/17 15:00 06/17/17 15:00 Intake and Output: 06/17/17 06/18/17 18:59 06:59 Intake Total 740 Balance 740 - Medications Medications: Current Medications Acetaminophen (Tylenol 325mg Tab) 650 mg PO Q4 PRN PRN Reason: Fever 101 degrees fahrenheit Digoxin (Lanoxin) 0.25 mg PO DAILY [facility] Last Admin: 06/17/17 13:13 Dose: Not Given Docusate Sodium (Colace) 100 mg PO BID [facility] Last Admin: 06/17/17 18:36 Dose: 100 mg Enoxaparin Sodium (Lovenox) 60 mg SC Q12 [facility] Ergocalciferol (Drisdol 50,000 Intl Units Cap) 1 cap PO Q7D [facility] Stop: 06/27/17 12:16 Last Admin: 06/15/17 13:52 Dose: 1 cap Furosemide (Lasix) 20 mg PO DAILY [facility] Last Admin: 06/17/17 10:10 Dose: 20 mg Hydromorphone HCl (Dilaudid) 0.5 mg IVP Q4H PRN PRN Reason: Pain, severe (8-10) Vancomycin/Sodium Chloride (Vancomycin 1 Gm/Ns 200 Ml) 1 gm in 200 mls @ 200 mls/hr IVPB Q12H [facility] Stop: 06/19/17 02:01 Last Admin: 06/17/17 13:24 Dose: 200 mls/hr Aztreonam 1 gm/ Sodium (Chloride) 100 mls @ 100 mls/hr IVPB Q12H [facility] Last Admin: 06/17/17 19:30 Dose: 100 mls/hr Micafungin Sodium 100 mg/ (Sodium Chloride) 100 mls @ 100 mls/hr IV Q24H [facility] Last Admin: 06/17/17 18:33 Dose: 100 mls/hr Ipratropium [place] (Atrovent) 0.5 mg IH RQ6 [facility] Last Admin: 06/17/17 19:53 Dose: 0.5 mg - Labs Labs: 06/17/17 13:42 06/17/17 04:28 PT 17.8 SECONDS (9.7-12.2) H 06/17/17 04:28 INR 1.6 06/17/17 04:28 Assessment and Plan (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 synovial fluid wbc's 15,318, 93% neutrophils .RBCs 77,990. Gram stain synovial fluid aspirated; many WBCs, yeast positive. CULTURE PENDING-so far negative. . Continue IV Vanco 1 g every 12 hourly 06/13/17. ON IV Mycamine 100 mg IV piggyback every 24 hourly.06/13/17 ON IV Azactam 1 g every 12 hourly for gram-negative coverage for now. 06/13/17. follow-up renal functions closely. . Patient will need 6 weeks of IV antibiotics with follow-up cultures. Awaiting final cultures to adjust antibiotics. Will discuss with orthopedic Dr. Cedillo. Status: Acute (2) PHT (pulmonary hypertension) Assessment & Plan: chest x-ray consistent with basilar congestion and by basilar effusions ? Early pneumonia. Will get sputum Gram stain and culture. Check d-dimer. Continue IV Azactam/IV Vanco/and IV micafungin. 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 PLACED ON BIPAP. PATIENT TO BE STARTED ON HIS PULMONARY HYPERTENSIVE MEDICATIONS PER PULMONARY. PATIENT'S AT THE BEDSIDE. Status: Acute (3) Osteoarthritis Status: Acute (4) Atrial fibrillation Status: Acute
[2017-06-17] MEDS: Enoxaparin 60 mg Syringe SC SCH (22:30)
[2017-06-18] MEDS: Vancomycin 1 gm/NS 200 ml 1 GM/200 ML BAG IVPB SCH ×2 (02:01→15:16)
[2017-06-18] MEDS: Ipratropium 0.02% Inhal Soln (0.5 mg/2.5 ml) UD IH SCH ×4 (02:33→19:40)
[2017-06-18] MEDS: Aztreonam 1 GM in Sodium Chloride 0.9% 100 ML IVPB SCH ×2 (06:05→18:37)
[2017-06-18 08:51] LABS: INR 1.9
[2017-06-18] MEDS: Digoxin 250 mcg (0.25 mg) Tab PO SCH (09:00)
[2017-06-18] MEDS: TRACLEER 125 MG PO SCH ×2 (09:04→17:33)
[2017-06-18] MEDS: Home Med 1 UNIT INH SCH ×5 (10:00→22:00)
[2017-06-18] MEDS ORDERED: Home Med 1 UNIT PO SCH (10:00)
--- NOTE | 2017-06-18 10:19 | CP.PCM.PN ---
Subjective - Date & Time of Evaluation Date of Evaluation: 06/18/17 Time of Evaluation: 10:14 - Subjective Subjective: Pt doing ok. Denies sig pain. Denies shortness of breath. Afebrile HR 115-130s L knee: incision clean and dry no drainage NVI distally labs pending cultures NGTD cont cardiac care for tachy P.T for ambulation in knee immobilizer d/c to rehab when medically stable Objective - Vital Signs/Intake and Output Vital Signs (last 24 hours): Temp Pulse Resp BP Pulse Ox 98.6 F 117 H 20 105/58 L 95 06/18/17 00:00 06/18/17 02:12 06/18/17 00:00 06/18/17 00:00 06/18/17 00:00 Intake and Output: 06/18/17 06/18/17 06:59 18:59 Intake Total 920 Output Total 1300 Balance -380 - Medications Medications: Current Medications Acetaminophen (Tylenol 325mg Tab) 650 mg PO Q4 PRN PRN Reason: Fever 101 degrees fahrenheit Last Admin: 06/18/17 09:01 Dose: 650 mg Digoxin (Lanoxin) 0.25 mg PO DAILY [facility] Last Admin: 06/18/17 09:00 Dose: 0.25 mg Diltiazem HCl (Cardizem) 30 mg PO Q6H [facility] Docusate Sodium (Colace) 100 mg PO BID [facility] Last Admin: 06/18/17 09:03 Dose: 100 mg Enoxaparin Sodium (Lovenox) 60 mg SC Q12 [facility] Last Admin: 06/17/17 22:30 Dose: 60 mg Ergocalciferol (Drisdol 50,000 Intl Units Cap) 1 cap PO Q7D [facility] Stop: 06/27/17 12:16 Last Admin: 06/15/17 13:52 Dose: 1 cap Furosemide (Lasix) 20 mg PO DAILY [facility] Last Admin: 06/17/17 10:10 Dose: 20 mg Home Med (Patient's Own Medication) 1 tab PO DAILY [facility] Last Admin: 06/18/17 09:07 Dose: 1 tab Home Med (Patient's Own Medication) 1 tab PO BID [facility] Last Admin: 06/18/17 09:04 Dose: 1 tab Home Med (Home Med) 1 unit INH QID [facility] Hydromorphone HCl (Dilaudid) 0.5 mg IVP Q4H PRN PRN Reason: Pain, severe (8-10) Vancomycin/Sodium Chloride (Vancomycin 1 Gm/Ns 200 Ml) 1 gm in 200 mls @ 200 mls/hr IVPB Q12H [facility] Stop: 06/19/17 02:01 Last Admin: 06/18/17 02:01 Dose: 200 mls/hr Aztreonam 1 gm/ Sodium (Chloride) 100 mls @ 100 mls/hr IVPB Q12H [facility] Last Admin: 06/18/17 06:05 Dose: 100 mls/hr Micafungin Sodium 100 mg/ (Sodium Chloride) 100 mls @ 100 mls/hr IV Q24H [facility] Last Admin: 06/17/17 18:33 Dose: 100 mls/hr Ipratropium [place] (Atrovent) 0.5 mg IH RQ6 [facility] Last Admin: 06/18/17 07:16 Dose: 0.5 mg - Labs Labs: 06/17/17 13:42 06/17/17 04:28 PT 22.0 SECONDS (9.7-12.2) H 06/18/17 08:35 INR 1.9 06/18/17 08:35
[2017-06-18] MEDS: Enoxaparin 60 mg Syringe SC SCH ×2 (10:48→23:00)
[2017-06-18 11:20] LABS: BASO # 0.1 K/uL (0.0-0.2); BASO % 0.7 % (0.0-2.0); EOS # 0.5 K/uL (0.0-0.7); EOS % 4.6 % (0.0-4.0); HEMATOCRIT 29.8 % (35.0-51.0); LYMPH # 0.9 K/uL (1.0-4.3); LYMPH % 8.4 % (20.0-40.0); MEAN CELL VOLUME 75.8 fL (80.0-94.0); MEAN CORPUSCULAR HEMOGLOBIN 25.4 pg (27.0-31.0); MEAN CORPUSCULAR HGB CONC 33.5 g/dL (33.0-37.0); MEAN PLATELET VOLUME 8.7 fL (7.2-11.7); MONO # 0.9 K/uL (0.0-0.8); MONO % 8.2 % (0.0-10.0); NRBC % 1.1 % (0.0-2.0); PLATELET COUNT 214 K/uL (130-400); RED CELL DISTRIBUTION WIDTH 23.1 % (11.5-14.5)
[2017-06-18 11:26] LABS: CHLORIDE 104 mmol/L (98-107); POTASSIUM 3.5 mmol/L (3.6-5.2); SODIUM 136 mmol/L (132-148)
[2017-06-18 11:28] LABS: ALB/GLOB RATIO 0.9 (1.0-2.1); ALKALINE PHOSPHATASE 74 U/L (38-126); ALT/SGPT 49 U/L (21-72); AST/SGOT 52 U/L (17-59); BILIRUBIN,TOTAL 1.3 mg/dL (0.2-1.3); BLOOD UREA NITROGEN 10 mg/dL (9-20); CARBON DIOXIDE 25 mmol/L (22-30); GFR AFRICAN-AMERICAN > 60; GLUCOSE,RANDOM 107 mg/dL (75-110); TOTAL PROTEIN 5.5 g/dL (6.3-8.3)
[2017-06-18 11:29] LABS: CALCIUM 7.6 mg/dl (8.6-10.4); MAGNESIUM 1.7 mg/dL (1.6-2.3); PHOSPHOROUS 3.1 mg/dL (2.5-4.5)
[2017-06-18 12:33] LABS: EOSINOPHIL 4 % (0-4); NEUTROPHIL 77 % (50-75); TOTAL CELLS COUNTED 100
[2017-06-18 12:36] LABS: SPHEROCYTES MODERATE
--- NOTE | 2017-06-18 12:43 | CP.PCM.PN ---
<LynchJosephMartin H - Last Filed: 06/18/17 15:28> Subjective - Date & Time of Evaluation Date of Evaluation: 06/17/17 Time of Evaluation: 09:00 - Subjective Subjective: Dr. العلي note: Patient seen and examined in room. He is in bed with nasal canula working hard to breath. He say he is feeling better and he is able to take his home medication for his PAH. He does say his breath was easier and he felt better using the BIPAP machine. He denies chest pain, coughing, palpitations, fever, or chills. Objective - Vital Signs/Intake and Output Vital Signs (last 24 hours): Temp Pulse Resp BP Pulse Ox 98.6 F 117 H 20 118/70 95 06/18/17 00:00 06/18/17 02:12 06/18/17 00:00 06/18/17 10:33 06/18/17 00:00 Intake and Output: 06/18/17 06/18/17 06:59 18:59 Intake Total 920 Output Total 1300 Balance -380 - Medications Medications: Current Medications Acetaminophen (Tylenol 325mg Tab) 650 mg PO Q4 PRN PRN Reason: Fever 101 degrees fahrenheit Last Admin: 06/18/17 09:01 Dose: 650 mg Digoxin (Lanoxin) 0.25 mg PO DAILY [facility] Last Admin: 06/18/17 09:00 Dose: 0.25 mg Diltiazem HCl (Cardizem) 30 mg PO Q6H [facility] Last Admin: 06/18/17 10:29 Dose: 30 mg Docusate Sodium (Colace) 100 mg PO BID [facility] Last Admin: 06/18/17 09:03 Dose: 100 mg Enoxaparin Sodium (Lovenox) 60 mg SC Q12 [facility] Last Admin: 06/18/17 10:48 Dose: 60 mg Ergocalciferol (Drisdol 50,000 Intl Units Cap) 1 cap PO Q7D [facility] Stop: 06/27/17 12:16 Last Admin: 06/15/17 13:52 Dose: 1 cap Furosemide (Lasix) 20 mg PO DAILY [facility] Last Admin: 06/18/17 10:33 Dose: 20 mg Home Med (Patient's Own Medication) 1 tab PO DAILY [facility] Last Admin: 06/18/17 09:07 Dose: 1 tab Home Med (Patient's Own Medication) 1 tab PO BID [facility] Last Admin: 06/18/17 09:04 Dose: 1 tab Home Med (Home Med) 1 unit INH QID [facility] Hydromorphone HCl (Dilaudid) 0.5 mg IVP Q4H PRN PRN Reason: Pain, severe (8-10) Vancomycin/Sodium Chloride (Vancomycin 1 Gm/Ns 200 Ml) 1 gm in 200 mls @ 200 mls/hr IVPB Q12H [facility] Stop: 06/19/17 02:01 Last Admin: 06/18/17 02:01 Dose: 200 mls/hr Aztreonam 1 gm/ Sodium (Chloride) 100 mls @ 100 mls/hr IVPB Q12H [facility] Last Admin: 06/18/17 06:05 Dose: 100 mls/hr Micafungin Sodium 100 mg/ (Sodium Chloride) 100 mls @ 100 mls/hr IV Q24H [facility] Last Admin: 06/17/17 18:33 Dose: 100 mls/hr Ipratropium [place] (Atrovent) 0.5 mg IH RQ6 [facility] Last Admin: 06/18/17 07:16 Dose: 0.5 mg Potassium Chloride (K-Dur 20 Meq Er Tab) 20 meq PO STAT [facility] Stop: 06/18/17 12:43 - Labs Labs: 06/18/17 11:10 06/18/17 11:10 PT 22.0 SECONDS (9.7-12.2) H 06/18/17 08:35 INR 1.9 06/18/17 08:35 - Constitutional Appears: In Acute Distress, Chronically Ill - ENT Exam ENT Exam: Mucous Membranes Moist - Respiratory Exam Respiratory Exam: Rhonchi, Wheezes. absent: Clear to Ausculation Bilateral, Rales, NORMAL BREATHING PATTERN - Cardiovascular Exam Cardiovascular Exam: Tachycardia, Irregular Rhythm, +S1, +S2. absent: Gallop, Rubs - GI/Abdominal Exam GI & Abdominal Exam: Soft, Normal Bowel Sounds. absent: Tenderness - Extremities Exam Extremities Exam: Pedal Edema. absent: Calf Tenderness - Neurological Exam Neurological Exam: Alert, Awake - Psychiatric Exam Psychiatric exam: Normal Affect, Normal Mood - Skin Skin Exam: Normal Color Assessment and Plan - Assessment and Plan (Free Text) Assessment: 71 year old male s/p septic knee replacement, is short of breathing and wheezing again today, CXR is worsening, will use BIAP for support, also gave an extra 20mg of Lasix, restarted Cardizem with holding parameters. Will most likely discharge to [facility] if stable tomorrow. Plan: s/p knee replacement removal for septic joint 06/18: continue with IV antibiotics, day 5, pain medication, podiatry changed his dressing today as well. 06/17: continue IV antibiotics, * * F/U BC - negative to date * F/U WC - negative to date * Aztreonam 1 Q12 * Micafungin 100 IV QD * Vanco 1 IV Q12 * Dilaudid 0.5 IVP Q4 PRN * Perc 5/325 PO Q4 PRN * dressing changed yesterday Hypotension 06/18: restarted Cardizem 06/17: BP improved with fluids, * likely hypovolemic * NS @ 80 * 1L fluid bolus NS given today * CXR after every fluid bolus. * per PMD patient's baseline is 90-100/60-70. So he is currently at his baseline Anemia - * 06/18: stable * 06/17: Hbg is 10.6 post transfusion. * Patient's HgB is 8.1 today. Per PMD (Dr. Isaak Ge) he is normaly around 11. We will give 2 units of blood slowly Hx of PE * 06/18: INR 1.9 today, 2mg of Warfrin given. * 06/17: Warfarin given today, theraputic Lovenox started * warfarin held today * INR 1.6 today. * Will start Lovenox and bridge to warfarin. Severe Pulmonary HTN 06/18: continue to allow patient to take his own medication, use BIPAP for support 06/17: Will allow patient to continue his home medication, Dr. Cummins consulted for pulm help appreicated. Patient has medications from home. We will hold for now due to low BP. Currently Satting at 97% with 4L of oxygen A-fib 06/18: Cardizem started 30mg Q6H, Dig, bridging over Coumadin with theraputic Lovenox latest INR 1.9 06/17: Dig level normal, continue to monitor on tele. Digoxin 0.25 IVP Daily started Hx of CHF-ruled out 06/18: Dr. Quintanilla consulted, Lasix 20mg daily, worsening CXR 06/17: a little fluid overloaded, continue Dig and Lasix * echo * EF 59, severe pulm HTN * lasix 20 PO QD * portable CXR ordered post 1 liter bolus. * Digoxin 0.25 IVP Daily started PPX * Tylenol 650 mg PO Q4 * Colace 100 PO BID * Lovenox 60 BID <Starr العلي V - Last Filed: 06/18/17 20:41> Objective - Vital Signs/Intake and Output Vital Signs (last 24 hours): Temp Pulse Resp BP Pulse Ox 97.2 F L 106 H 20 90/58 L 98 06/18/17 16:00 06/18/17 19:43 06/18/17 16:00 06/18/17 16:40 06/18/17 16:00 - Medications Medications: Current Medications Acetaminophen (Tylenol 325mg Tab) 650 mg PO Q4 PRN PRN Reason: Fever 101 degrees fahrenheit Last Admin: 06/18/17 09:01 Dose: 650 mg Digoxin (Lanoxin) 0.25 mg PO DAILY [facility] Last Admin: 06/18/17 09:00 Dose: 0.25 mg Diltiazem HCl (Cardizem) 30 mg PO Q6 [facility] Last Admin: 06/18/17 17:49 Dose: 30 mg Docusate Sodium (Colace) 100 mg PO BID [facility] Last Admin: 06/18/17 09:03 Dose: 100 mg Enoxaparin Sodium (Lovenox) 60 mg SC Q12 [facility] Last Admin: 06/18/17 10:48 Dose: 60 mg Ergocalciferol (Drisdol 50,000 Intl Units Cap) 1 cap PO Q7D [facility] Stop: 06/27/17 12:16 Last Admin: 06/15/17 13:52 Dose: 1 cap Furosemide (Lasix) 20 mg PO DAILY [facility] Last Admin: 06/18/17 10:33 Dose: 20 mg Home Med (Patient's Own Medication) 1 tab PO DAILY [facility] Last Admin: 06/18/17 09:07 Dose: 1 tab Home Med (Patient's Own Medication) 1 tab PO BID [facility] Last Admin: 06/18/17 17:33 Dose: 1 tab Home Med (Home Med) 1 unit INH QID [facility] Last Admin: 06/18/17 14:00 Dose: Not Given Hydromorphone HCl (Dilaudid) 0.5 mg IVP Q4H PRN PRN Reason: Pain, severe (8-10) Vancomycin/Sodium Chloride (Vancomycin 1 Gm/Ns 200 Ml) 1 gm in 200 mls @ 200 mls/hr IVPB Q12H [facility] Stop: 06/19/17 02:01 Last Admin: 06/18/17 15:16 Dose: 200 mls/hr Aztreonam 1 gm/ Sodium (Chloride) 100 mls @ 100 mls/hr IVPB Q12H [facility] Last Admin: 06/18/17 18:37 Dose: 100 mls/hr Micafungin Sodium 100 mg/ (Sodium Chloride) 100 mls @ 100 mls/hr IV Q24H [facility] Last Admin: 06/18/17 17:34 Dose: 100 mls/hr Ipratropium [place] (Atrovent) 0.5 mg IH RQ6 [facility] Last Admin: 06/18/17 19:40 Dose: 0.5 mg - Labs Labs: 06/18/17 11:10 06/18/17 11:10 PT 22.0 SECONDS (9.7-12.2) H 06/18/17 08:35 INR 1.9 06/18/17 08:35 Attending/Attestation - Attestation I have personally seen and examined this patient.: Yes I have fully participated in the care of the patient.: Yes I have reviewed all pertinent clinical information, including history, physical exam and plan: Yes Notes (Text): Patient seen, examined, and case discusse with day-time resident. Patient visible appears shortness of breathe +rales, and wheezing. Portable chest xray showed worsening of congestion. Patient placed on BIPAP. Discussed with Dr. Quintanilla, restart Cardizem 30mg PO Q 6 (hold SBP<90). Please note: patient does have history of hypotension per discussion with his PMD on . Patient restarted on pumonary hypetension medications. Patient's INR therapuetic while on therapuetic Lovenox bridge to Coumadin. Patient ordered for Coumadin 3mg PO tonight/ f/u INR. Cardiology suggests switching anticoagulation to Eliquis; unclear if Eliquis has role in prophylaxis in ortho procedures Patient is on IV abx as per ID.
[2017-06-18 12:58] LABS: LARGE PLATELETS PRESENT
[2017-06-18] MEDS ORDERED: Potassium Chloride 20 mEq ER Tab PO ONE (13:00)
--- NOTE | 2017-06-18 13:18 | CP.PCM.PN ---
Subjective - Date & Time of Evaluation Date of Evaluation: 06/18/17 Time of Evaluation: 12:40 - Subjective Subjective: patient has no current chest pain. Objective - Vital Signs/Intake and Output Vital Signs (last 24 hours): Temp Pulse Resp BP Pulse Ox 98.6 F 117 H 20 118/70 95 06/18/17 00:00 06/18/17 02:12 06/18/17 00:00 06/18/17 10:33 06/18/17 00:00 Intake and Output: 06/18/17 06/18/17 06:59 18:59 Intake Total 920 Output Total 1300 Balance -380 - Medications Medications: Current Medications Acetaminophen (Tylenol 325mg Tab) 650 mg PO Q4 PRN PRN Reason: Fever 101 degrees fahrenheit Last Admin: 06/18/17 09:01 Dose: 650 mg Digoxin (Lanoxin) 0.25 mg PO DAILY [facility] Last Admin: 06/18/17 09:00 Dose: 0.25 mg Diltiazem HCl (Cardizem) 30 mg PO Q6H [facility] Last Admin: 06/18/17 10:29 Dose: 30 mg Docusate Sodium (Colace) 100 mg PO BID [facility] Last Admin: 06/18/17 09:03 Dose: 100 mg Enoxaparin Sodium (Lovenox) 60 mg SC Q12 [facility] Last Admin: 06/18/17 10:48 Dose: 60 mg Ergocalciferol (Drisdol 50,000 Intl Units Cap) 1 cap PO Q7D [facility] Stop: 06/27/17 12:16 Last Admin: 06/15/17 13:52 Dose: 1 cap Furosemide (Lasix) 20 mg PO DAILY [facility] Last Admin: 06/18/17 10:33 Dose: 20 mg Home Med (Patient's Own Medication) 1 tab PO DAILY [facility] Last Admin: 06/18/17 09:07 Dose: 1 tab Home Med (Patient's Own Medication) 1 tab PO BID [facility] Last Admin: 06/18/17 09:04 Dose: 1 tab Home Med (Home Med) 1 unit INH QID [facility] Hydromorphone HCl (Dilaudid) 0.5 mg IVP Q4H PRN PRN Reason: Pain, severe (8-10) Vancomycin/Sodium Chloride (Vancomycin 1 Gm/Ns 200 Ml) 1 gm in 200 mls @ 200 mls/hr IVPB Q12H [facility] Stop: 06/19/17 02:01 Last Admin: 06/18/17 02:01 Dose: 200 mls/hr Aztreonam 1 gm/ Sodium (Chloride) 100 mls @ 100 mls/hr IVPB Q12H [facility] Last Admin: 06/18/17 06:05 Dose: 100 mls/hr Micafungin Sodium 100 mg/ (Sodium Chloride) 100 mls @ 100 mls/hr IV Q24H [facility] Last Admin: 06/17/17 18:33 Dose: 100 mls/hr Ipratropium [place] (Atrovent) 0.5 mg IH RQ6 [facility] Last Admin: 06/18/17 07:16 Dose: 0.5 mg Warfarin Sodium (Coumadin) 2 mg PO 1800 [facility] Stop: 06/18/17 18:01 - Labs Labs: 06/18/17 11:10 06/18/17 11:10 PT 22.0 SECONDS (9.7-12.2) H 06/18/17 08:35 INR 1.9 06/18/17 08:35 - Constitutional Appears: Non-toxic - Head Exam Head Exam: NORMAL INSPECTION - Eye Exam Eye Exam: Normal appearance - ENT Exam ENT Exam: Mucous Membranes Moist - Neck Exam Neck Exam: Full ROM - Respiratory Exam Respiratory Exam: Decreased Breath Sounds - Cardiovascular Exam Cardiovascular Exam: Tachycardia, Irregular Rhythm - GI/Abdominal Exam GI & Abdominal Exam: Normal Bowel Sounds - Rectal Exam Rectal Exam: Deferred - Extremities Exam Extremities Exam: absent: Pedal Edema - Back Exam Back Exam: NORMAL INSPECTION - Neurological Exam Neurological Exam: Alert - Psychiatric Exam Psychiatric exam: Normal Affect - Skin Skin Exam: Normal Color Assessment and Plan (1) Atrial fibrillation Assessment & Plan: patient has no been givne cardizem, therefore he has elevated heart rate. I stressed the improtance of cardizem. I discussed with nursing staff. consider changing coumadin to Eliquis Status: Acute (2) PHT (pulmonary hypertension) Assessment & Plan: medical therapy. Status: Acute
--- NOTE | 2017-06-18 14:30 | RAD ---
HISTORY: shortness of breath COMPARISON: 06/16/2017 FINDINGS: LUNGS: Right-sided venous catheter tip extending into the right SVC. Moderate to severe venous congestion with patchy bibasilar airspace opacities and small bilateral pleural effusions. PLEURA: As above. CARDIOVASCULAR: Cardiomegaly. OSSEOUS STRUCTURES: Degenerative changes in the spine and shoulders. VISUALIZED UPPER ABDOMEN: Normal. OTHER FINDINGS: None. IMPRESSION: Right-sided venous catheter tip extending into the right SVC. Moderate to severe venous congestion with patchy bibasilar airspace opacities and small bilateral pleural effusions.
[2017-06-18] MEDS: MICAFUNGIN IV SCH (17:34)
[2017-06-18] MEDS: SODIUM CHLORIDE IV SCH (17:34)
--- NOTE | 2017-06-18 19:39 | CP.PCM.PN ---
Subjective - Date & Time of Evaluation Date of Evaluation: 06/18/17 Time of Evaluation: 19:38 - Subjective Subjective: pt today feeling ok wheezing noted no fever no chills using home meds for PHTN using bipap on coumadin atrial fib rate controllled will f/u Objective - Vital Signs/Intake and Output Vital Signs (last 24 hours): Temp Pulse Resp BP Pulse Ox 97.2 F L 101 H 20 90/58 L 98 06/18/17 16:00 06/18/17 16:00 06/18/17 16:00 06/18/17 16:40 06/18/17 16:00 - Medications Medications: Current Medications Acetaminophen (Tylenol 325mg Tab) 650 mg PO Q4 PRN PRN Reason: Fever 101 degrees fahrenheit Last Admin: 06/18/17 09:01 Dose: 650 mg Digoxin (Lanoxin) 0.25 mg PO DAILY [facility] Last Admin: 06/18/17 09:00 Dose: 0.25 mg Diltiazem HCl (Cardizem) 30 mg PO Q6 [facility] Last Admin: 06/18/17 17:49 Dose: 30 mg Docusate Sodium (Colace) 100 mg PO BID [facility] Last Admin: 06/18/17 09:03 Dose: 100 mg Enoxaparin Sodium (Lovenox) 60 mg SC Q12 [facility] Last Admin: 06/18/17 10:48 Dose: 60 mg Ergocalciferol (Drisdol 50,000 Intl Units Cap) 1 cap PO Q7D [facility] Stop: 06/27/17 12:16 Last Admin: 06/15/17 13:52 Dose: 1 cap Furosemide (Lasix) 20 mg PO DAILY [facility] Last Admin: 06/18/17 10:33 Dose: 20 mg Home Med (Patient's Own Medication) 1 tab PO DAILY [facility] Last Admin: 06/18/17 09:07 Dose: 1 tab Home Med (Patient's Own Medication) 1 tab PO BID [facility] Last Admin: 06/18/17 17:33 Dose: 1 tab Home Med (Home Med) 1 unit INH QID [facility] Last Admin: 06/18/17 14:00 Dose: Not Given Hydromorphone HCl (Dilaudid) 0.5 mg IVP Q4H PRN PRN Reason: Pain, severe (8-10) Vancomycin/Sodium Chloride (Vancomycin 1 Gm/Ns 200 Ml) 1 gm in 200 mls @ 200 mls/hr IVPB Q12H [facility] Stop: 06/19/17 02:01 Last Admin: 06/18/17 15:16 Dose: 200 mls/hr Aztreonam 1 gm/ Sodium (Chloride) 100 mls @ 100 mls/hr IVPB Q12H [facility] Last Admin: 06/18/17 18:37 Dose: 100 mls/hr Micafungin Sodium 100 mg/ (Sodium Chloride) 100 mls @ 100 mls/hr IV Q24H [facility] Last Admin: 06/18/17 17:34 Dose: 100 mls/hr Ipratropium [place] (Atrovent) 0.5 mg IH RQ6 [facility] Last Admin: 06/18/17 13:38 Dose: 0.5 mg - Labs Labs: 06/18/17 11:10 06/18/17 11:10 PT 22.0 SECONDS (9.7-12.2) H 06/18/17 08:35 INR 1.9 06/18/17 08:35
[2017-06-19] MEDS: Ipratropium 0.02% Inhal Soln (0.5 mg/2.5 ml) UD IH SCH ×4 (01:29→19:52)
[2017-06-19] MEDS: Vancomycin 1 gm/NS 200 ml 1 GM/200 ML BAG IVPB SCH (01:35)
[2017-06-19] MEDS: Aztreonam 1 GM in Sodium Chloride 0.9% 100 ML IVPB SCH (05:43)
[2017-06-19 06:29] LABS: INR 2.2
[2017-06-19 06:30] LABS: CHLORIDE 103 mmol/L (98-107); SODIUM 136 mmol/L (132-148)
[2017-06-19 06:31] LABS: POTASSIUM 3.3 mmol/L (3.6-5.2)
[2017-06-19 06:33] LABS: ALB/GLOB RATIO 0.7 (1.0-2.1); ALKALINE PHOSPHATASE 77 U/L (38-126); AST/SGOT 52 U/L (17-59); BILIRUBIN,TOTAL 0.9 mg/dL (0.2-1.3); BLOOD UREA NITROGEN 10 mg/dL (9-20); CARBON DIOXIDE 28 mmol/L (22-30); GFR AFRICAN-AMERICAN > 60; GLUCOSE,RANDOM 86 mg/dL (75-110); PHOSPHOROUS 3.5 mg/dL (2.5-4.5); TOTAL PROTEIN 6.5 g/dL (6.3-8.3)
[2017-06-19 06:34] LABS: ALT/SGPT 45 U/L (21-72); CALCIUM 7.9 mg/dl (8.6-10.4); MAGNESIUM 1.7 mg/dL (1.6-2.3)
[2017-06-19 06:36] LABS: BASO % 0.5 % (0.0-2.0); EOS # 0.6 K/uL (0.0-0.7); EOS % 6.5 % (0.0-4.0); HEMATOCRIT 29.2 % (35.0-51.0); LYMPH % 10.7 % (20.0-40.0); MEAN CELL VOLUME 75.2 fL (80.0-94.0); MEAN CORPUSCULAR HEMOGLOBIN 25.7 pg (27.0-31.0); MEAN CORPUSCULAR HGB CONC 34.1 g/dL (33.0-37.0); MEAN PLATELET VOLUME 8.8 fL (7.2-11.7); MONO # 0.8 K/uL (0.0-0.8); MONO % 8.8 % (0.0-10.0); NRBC % 1.7 % (0.0-2.0); RED CELL DISTRIBUTION WIDTH 23.2 % (11.5-14.5); WHITE BLOOD COUNT 9.4 K/uL (4.8-10.8)
[2017-06-19] MEDS: Home Med 1 UNIT INH SCH ×3 (07:19→13:20)
[2017-06-19] MEDS: Digoxin 250 mcg (0.25 mg) Tab PO SCH (10:11)
[2017-06-19] MEDS: Enoxaparin 60 mg Syringe SC SCH (10:11)
[2017-06-19] MEDS: TRACLEER 125 MG PO SCH (10:12)
[2017-06-19 10:22] VITALS: PULSE 98
[2017-06-19] MEDS ORDERED: Potassium Chloride 20 mEq ER Tab PO ONE (12:04)
--- NOTE | 2017-06-19 13:04 | CP.PCM.PCO ---
Physician Communication Note - Physician Communication Note Physician Communication Note: Please see above
--- NOTE | 2017-06-19 13:42 | CP.PCM.PN ---
Subjective - Date & Time of Evaluation Date of Evaluation: 06/19/17 Time of Evaluation: 13:41 - Subjective Subjective: The patient had this morning minimal wheezing. Mild SOB. Spoke to the patient's . Minimal cough noted. Otherwise patient is clinical stable otherwise Chest bilateral wheezing Patient has a severe primary hypertension, on medications. Continue the BiPAP as needed, oxygen, bronchodilator. Medications reviewed with the patient. Will follow the patient Objective - Vital Signs/Intake and Output Vital Signs (last 24 hours): Temp Pulse Resp BP Pulse Ox 98 F 108 H 20 105/53 L 95 06/19/17 07:40 06/19/17 08:00 06/19/17 07:40 06/19/17 10:11 06/19/17 07:40 Intake and Output: 06/19/17 06/19/17 06:59 18:59 Intake Total 520 Output Total 600 Balance -80 - Medications Medications: Current Medications Acetaminophen (Tylenol 325mg Tab) 650 mg PO Q4 PRN PRN Reason: Fever 101 degrees fahrenheit Last Admin: 06/18/17 09:01 Dose: 650 mg Digoxin (Lanoxin) 0.25 mg PO DAILY [facility] Last Admin: 06/19/17 10:11 Dose: 0.25 mg Diltiazem HCl (Cardizem) 30 mg PO Q6 [facility] Last Admin: 06/19/17 11:42 Dose: 30 mg Docusate Sodium (Colace) 100 mg PO BID [facility] Last Admin: 06/19/17 10:11 Dose: 100 mg Ergocalciferol (Drisdol 50,000 Intl Units Cap) 1 cap PO Q7D [facility] Stop: 06/27/17 12:16 Last Admin: 06/15/17 13:52 Dose: 1 cap Furosemide (Lasix) 20 mg PO DAILY [facility] Last Admin: 06/19/17 10:11 Dose: 20 mg Home Med (Patient's Own Medication) 1 tab PO DAILY [facility] Last Admin: 06/19/17 10:12 Dose: 1 tab Home Med (Patient's Own Medication) 1 tab PO BID [facility] Last Admin: 06/19/17 10:12 Dose: 1 tab Home Med (Home Med) 1 unit INH QID [facility] Last Admin: 06/19/17 13:20 Dose: Not Given Hydromorphone HCl (Dilaudid) 0.5 mg IVP Q4H PRN PRN Reason: Pain, severe (8-10) Aztreonam 1 gm/ Dextrose 100 mls @ 100 mls/hr IVPB Q12H [facility] Micafungin Sodium 100 mg/ (Dextrose) 100 mls @ 100 mls/hr IV Q24H [facility] Ipratropium [place] (Atrovent) 0.5 mg IH RQ6 [facility] Last Admin: 06/19/17 13:12 Dose: 0.5 mg Saccharomyces Boulardii (Florastor) 250 mg PO BID [facility] - Labs Labs: 06/19/17 06:08 06/19/17 06:08 PT 25.4 SECONDS (9.7-12.2) H 06/19/17 06:08 INR 2.2 06/19/17 06:08
[2017-06-19 17:33] VITALS: BP 101/57; PULSE 116; TEMP 98; O2SAT 97
--- NOTE | 2017-06-19 17:53 | CP.PCM.PN ---
Subjective - Date & Time of Evaluation Date of Evaluation: 06/19/17 Time of Evaluation: 17:53 - Subjective Subjective: CHIEF COMPLAINTS TODAY : feeling better, comfortable Seen by pulmonary /and cardiology. ON bipap as needed ROS. HEENT : N. Resp : no sob , minimal wheezing, OCCASIONAL+VE COUGH Cardio : No CP, PND orthopnea GI : No abd. 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 Musculoskel : POSTOPERATIVE /LEFT KNEE, LEG IN SOFT CAST Ext. : Pedal pulses intact, no edema or calf pain Derm : N Psych : N. PE. Pt. is alert awake in no distress. V.S As noted in the chart Head ,ear nose,throat and eyes : Normal. Neck : Supple with normal carotids. Lungs: EXPIRATORY WHEEZE IMPROVING. Heart : S1 & S2 IRREGULAR , TACHYCARDIA Abd : Soft non tender with normal bowel sounds. Neuro : Moves all ext. with no localized deficit. Ext : No edema with intact pulses RT LEG. POSTOPERATIVE LEFT KNEE AND LEG IN SOFT CAST Derm;: No rashes or decubitus ulcer. Radiology/Labs . wbc 9.4, HEMOGLOBIN 10.0 STABLE sPUTUM NORMAL BENJAMIN. cHEST X-RAY 06/18/17 MODERATE TO SEVERE VENOUS CONGESTION. pATCHY BIBASILAR AIRSPACE OPACITIES AND SMALL BILATERAL PLEURAL EFFUSIONS. cREATININE 0.8/bun 28 06/18/17. VANCO TROUGH 16.1.-OK. CK 182. REVIEWED 06/13/17 LEFT KNEE ASPIRATE Many PMNs and rare yeast.- pending culture 06/13/17 left knee tissue -no growth so far. Objective - Vital Signs/Intake and Output Vital Signs (last 24 hours): Temp Pulse Resp BP Pulse Ox 98.0 F 116 H 20 101/57 L 97 06/19/17 17:31 06/19/17 17:31 06/19/17 17:31 06/19/17 17:31 06/19/17 17:31 Intake and Output: 06/19/17 06/19/17 06:59 18:59 Intake Total 520 Output Total 600 Balance -80 - Medications Medications: Current Medications Acetaminophen (Tylenol 325mg Tab) 650 mg PO Q4 PRN PRN Reason: Fever 101 degrees fahrenheit Last Admin: 06/18/17 09:01 Dose: 650 mg Digoxin (Lanoxin) 0.25 mg PO DAILY [facility] Last Admin: 06/19/17 10:11 Dose: 0.25 mg Diltiazem HCl (Cardizem) 30 mg PO Q6 [facility] Last Admin: 06/19/17 11:42 Dose: 30 mg Docusate Sodium (Colace) 100 mg PO BID [facility] Last Admin: 06/19/17 10:11 Dose: 100 mg Ergocalciferol (Drisdol 50,000 Intl Units Cap) 1 cap PO Q7D [facility] Stop: 06/27/17 12:16 Last Admin: 06/15/17 13:52 Dose: 1 cap Furosemide (Lasix) 20 mg PO DAILY [facility] Last Admin: 06/19/17 10:11 Dose: 20 mg Home Med (Patient's Own Medication) 1 tab PO DAILY [facility] Last Admin: 06/19/17 10:12 Dose: 1 tab Home Med (Patient's Own Medication) 1 tab PO BID [facility] Last Admin: 06/19/17 10:12 Dose: 1 tab Home Med (Home Med) 1 unit INH QID [facility] Last Admin: 06/19/17 13:20 Dose: Not Given Hydromorphone HCl (Dilaudid) 0.5 mg IVP Q4H PRN PRN Reason: Pain, severe (8-10) Aztreonam 1 gm/ Dextrose 100 mls @ 100 mls/hr IVPB Q12H [facility] Micafungin Sodium 100 mg/ (Dextrose) 100 mls @ 100 mls/hr IV Q24H [facility] Ipratropium [place] (Atrovent) 0.5 mg IH RQ6 [facility] Last Admin: 06/19/17 13:12 Dose: 0.5 mg Saccharomyces Boulardii (Florastor) 250 mg PO BID [facility] - Labs Labs: 06/19/17 06:08 06/19/17 06:08 PT 25.4 SECONDS (9.7-12.2) H 06/19/17 06:08 INR 2.2 06/19/17 06:08 Assessment and Plan (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 synovial fluid wbc's 15,318, 93% neutrophils .RBCs 77,990. Gram stain synovial fluid aspirated; many WBCs, yeast positive. CULTURE PENDING-so far negative. Case discussed with hospitalist DR. JAMAL GRIMM,HOSPITALIST. PATIENT FOR SUBACUTE REHABILITATION TODAY . Continue IV Vanco 1 g every 12 hourly 06/13/17. X TOTAL OF 6 WEEKS. CONTINUE IV Mycamine 100 mg IV piggyback every 24 hourly.06/13/17 TOTAL OF 4 WEEKS, F/B FLUCONAZOLE 200 MG ONCE A DAY DAILY FOR 2 WEEKS. CONTINUE IV Azactam 1 g every 12 hourly for gram-negative coverage for now. . FOR TOTAL OF 4 WEEKS. FOLLOW-UP BLOOD WORKS WEEKLY ON WEDNESDAYS AND NOTIFY MD. CBC WITH DIFFERENTIAL CMP, LFTS , VANCO TROUGH LEVEL WEEKLY X6WKS ( KEEP vANCO LEVELS BETWEEN 10 AND 20 ). LOCAL WOUND CARE PER ORTHOPEDIC. Status: Acute (2) PHT (pulmonary hypertension) Assessment & Plan: PATIENT SEEN BY PHILOSOPHY AND RELIGION INSTRUCTOR. PLACED ON BIPAP PRN NEEDED PATIENT IS PLACED BACK ON HIS PULMONARY HYPERTENSIVE MEDICATIONS PER PULMONARY. PATIENT'S AT THE BEDSIDE. Status: Acute (3) Osteoarthritis Status: Acute (4) Atrial fibrillation Status: Acute
[2017-06-19] MEDS ORDERED: Saccharomyces Boulardi 250 mg Cap PO SCH (18:00)
[2017-06-19] MEDS ORDERED: Micafungin 100 MG in Dextrose 5% In Water 100 ML IV SCH (18:00)
[2017-06-19] MEDS ORDERED: Aztreonam 1 GM in Dextrose 5% In Water 100 ML IVPB SCH (18:30)
--- NOTE | 2017-06-19 19:50 | CP.PCM.PN ---
<LeonardHumble mercedes - Last Filed: 06/19/17 19:51> Subjective - Date & Time of Evaluation Date of Evaluation: 06/19/17 Time of Evaluation: 19:49 - Subjective Subjective: Patient has been seen and examined. He states that he is generally feeling better. Denies any fever, chills, chest pain, abdominal pain, n/v/d, or constipation. He states his SOB has improved. Objective - Vital Signs/Intake and Output Vital Signs (last 24 hours): Temp Pulse Resp BP Pulse Ox 98.0 F 116 H 20 101/57 L 97 06/19/17 17:31 06/19/17 17:31 06/19/17 17:31 06/19/17 17:31 06/19/17 17:31 - Medications Medications: Current Medications Acetaminophen (Tylenol 325mg Tab) 650 mg PO Q4 PRN PRN Reason: Fever 101 degrees fahrenheit Last Admin: 06/18/17 09:01 Dose: 650 mg Digoxin (Lanoxin) 0.25 mg PO DAILY [facility] Last Admin: 06/19/17 10:11 Dose: 0.25 mg Diltiazem HCl (Cardizem) 30 mg PO Q6 [facility] Last Admin: 06/19/17 18:49 Dose: 30 mg Docusate Sodium (Colace) 100 mg PO BID [facility] Last Admin: 06/19/17 18:48 Dose: 100 mg Ergocalciferol (Drisdol 50,000 Intl Units Cap) 1 cap PO Q7D [facility] Stop: 06/27/17 12:16 Last Admin: 06/15/17 13:52 Dose: 1 cap Furosemide (Lasix) 20 mg PO DAILY [facility] Last Admin: 06/19/17 10:11 Dose: 20 mg Home Med (Patient's Own Medication) 1 tab PO DAILY [facility] Last Admin: 06/19/17 10:12 Dose: 1 tab Home Med (Patient's Own Medication) 1 tab PO BID [facility] Last Admin: 06/19/17 10:12 Dose: 1 tab Home Med (Home Med) 1 unit INH QID [facility] Last Admin: 06/19/17 13:20 Dose: Not Given Hydromorphone HCl (Dilaudid) 0.5 mg IVP Q4H PRN PRN Reason: Pain, severe (8-10) Aztreonam 1 gm/ Dextrose 100 mls @ 100 mls/hr IVPB Q12H [facility] Last Admin: 06/19/17 18:42 Dose: 100 mls/hr Micafungin Sodium 100 mg/ (Dextrose) 100 mls @ 100 mls/hr IV Q24H [facility] Last Admin: 06/19/17 18:44 Dose: 100 mls/hr Ipratropium [place] (Atrovent) 0.5 mg IH RQ6 [facility] Last Admin: 06/19/17 13:12 Dose: 0.5 mg Saccharomyces Boulardii (Florastor) 250 mg PO BID [facility] Last Admin: 06/19/17 18:48 Dose: 250 mg - Labs Labs: 06/19/17 06:08 06/19/17 06:08 PT 25.4 SECONDS (9.7-12.2) H 06/19/17 06:08 INR 2.2 06/19/17 06:08 - Constitutional Appears: Non-toxic, No Acute Distress - Head Exam Head Exam: ATRAUMATIC, NORMAL INSPECTION, NORMOCEPHALIC - Eye Exam Eye Exam: EOMI, Normal appearance - ENT Exam ENT Exam: Mucous Membranes Moist - Respiratory Exam Respiratory Exam: Clear to Ausculation Bilateral. absent: Rales, Rhonchi - Cardiovascular Exam Cardiovascular Exam: +S1, +S2 - GI/Abdominal Exam GI & Abdominal Exam: Soft. absent: Tenderness - Extremities Exam Extremities Exam: Normal Capillary Refill - Neurological Exam Neurological Exam: Alert, Oriented x3 - Psychiatric Exam Psychiatric exam: Normal Affect, Normal Mood Assessment and Plan - Assessment and Plan (Free Text) Assessment: 71 year old male admitted for knee replacement removal for septic joint. Plan: 06/18: continue with IV antibiotics, day 5, pain medication, podiatry changed his dressing today as well. 06/17: continue IV antibiotics, * * F/U BC - negative to date * F/U WC - negative to date * Aztreonam 1 Q12 * Micafungin 100 IV QD * Vanco 1 IV Q12 * Dilaudid 0.5 IVP Q4 PRN * Perc 5/325 PO Q4 PRN * dressing changed yesterday Hypotension 06/18: restarted Cardizem 06/17: BP improved with fluids, * likely hypovolemic * NS @ 80 * 1L fluid bolus NS given today * CXR after every fluid bolus. * per PMD patient's baseline is 90-100/60-70. So he is currently at his baseline Anemia - * 06/18: stable * 06/17: Hbg is 10.6 post transfusion. * Patient's HgB is 8.1 today. Per PMD (Dr. Isaak Ge) he is normaly around 11. We will give 2 units of blood slowly Hx of PE * 06/18: INR 1.9 today, 2mg of Warfrin given. * 06/17: Warfarin given today, theraputic Lovenox started * warfarin held today * INR 1.6 today. * Will start Lovenox and bridge to warfarin. Severe Pulmonary HTN 06/18: continue to allow patient to take his own medication, use BIPAP for support 06/17: Will allow patient to continue his home medication, Dr. Cummins consulted for pulm help appreicated. Patient has medications from home. We will hold for now due to low BP. Currently Satting at 97% with 4L of oxygen A-fib 06/18: Cardizem started 30mg Q6H, Dig, bridging over Coumadin with theraputic Lovenox latest INR 1.9 06/17: Dig level normal, continue to monitor on tele. Digoxin 0.25 IVP Daily started Hx of CHF-ruled out 06/18: Dr. Quintanilla consulted, Lasix 20mg daily, worsening CXR 06/17: a little fluid overloaded, continue Dig and Lasix * echo * EF 59, severe pulm HTN * lasix 20 PO QD * portable CXR ordered post 1 liter bolus. * Digoxin 0.25 IVP Daily started PPX * Tylenol 650 mg PO Q4 * Colace 100 PO BID * Lovenox 60 BID Patient is cleared for discharge to [facility]. As per conversation with ID Dr. Andra Watters the patient will need the following antibiotics administered through Right Arm PICC Line through the corresponding dates: 1). Aztreonam 1 gm IV Q12H through 07/11/17 (for a total of 4 weeks from ) 2). Vancomycin 1 gm IV Q12H through 07/25/17 (for a total of 6 weeks from ) 3). Mycamine 100 mcg IV Q24H through 07/11/17 (for a total of 4 weeks from 06/13) 4). Fluconazole 200 mg PO 1x/day from 07/12/17 through 07/26/17 (for a total of 2 weeks) Patient will need Vancomycin Trough measured every Monday. Patient will need weekly CMP, CBC with differential. Once at [facility], Infectious Disease Dr. Andra Watters should be consulted and updated as to patient progress Patient should be continued on current medication managment as per medication reconciliation list. Patient is should be continued on Coumadin 5 mg PO x 1 day in evening with monitoring of INR at [facility]. Upon his discharge from [facility] patient will need follow with the following physicians: 1). PMD Dr. Isaak Ge 2). Magician Helper Dr. Li 3). Crepe Laminator Operator Dr. Woo Patient discussed with Attending Humble Holm PGY-1 <Jorje Jennings - Last Filed: 06/19/17 20:11> Objective - Vital Signs/Intake and Output Vital Signs (last 24 hours): Temp Pulse Resp BP Pulse Ox 98.0 F 116 H 20 101/57 L 97 06/19/17 17:31 06/19/17 17:31 06/19/17 17:31 06/19/17 17:31 06/19/17 17:31 - Medications Medications: Current Medications Acetaminophen (Tylenol 325mg Tab) 650 mg PO Q4 PRN PRN Reason: Fever 101 degrees fahrenheit Last Admin: 06/18/17 09:01 Dose: 650 mg Digoxin (Lanoxin) 0.25 mg PO DAILY [facility] Last Admin: 06/19/17 10:11 Dose: 0.25 mg Diltiazem HCl (Cardizem) 30 mg PO Q6 [facility] Last Admin: 06/19/17 18:49 Dose: 30 mg Docusate Sodium (Colace) 100 mg PO BID [facility] Last Admin: 06/19/17 18:48 Dose: 100 mg Ergocalciferol (Drisdol 50,000 Intl Units Cap) 1 cap PO Q7D [facility] Stop: 06/27/17 12:16 Last Admin: 06/15/17 13:52 Dose: 1 cap Furosemide (Lasix) 20 mg PO DAILY [facility] Last Admin: 06/19/17 10:11 Dose: 20 mg Home Med (Patient's Own Medication) 1 tab PO DAILY [facility] Last Admin: 06/19/17 10:12 Dose: 1 tab Home Med (Patient's Own Medication) 1 tab PO BID [facility] Last Admin: 06/19/17 10:12 Dose: 1 tab Home Med (Home Med) 1 unit INH QID [facility] Last Admin: 06/19/17 13:20 Dose: Not Given Hydromorphone HCl (Dilaudid) 0.5 mg IVP Q4H PRN PRN Reason: Pain, severe (8-10) Aztreonam 1 gm/ Dextrose 100 mls @ 100 mls/hr IVPB Q12H [facility] Last Admin: 06/19/17 18:42 Dose: 100 mls/hr Micafungin Sodium 100 mg/ (Dextrose) 100 mls @ 100 mls/hr IV Q24H [facility] Last Admin: 06/19/17 18:44 Dose: 100 mls/hr Ipratropium [place] (Atrovent) 0.5 mg IH RQ6 [facility] Last Admin: 06/19/17 19:52 Dose: Not Given Saccharomyces Boulardii (Florastor) 250 mg PO BID [facility] Last Admin: 06/19/17 18:48 Dose: 250 mg - Labs Labs: 06/19/17 06:08 06/19/17 06:08 PT 25.4 SECONDS (9.7-12.2) H 06/19/17 06:08 INR 2.2 06/19/17 06:08 Attending/Attestation - Attestation I have personally seen and examined this patient.: Yes I have fully participated in the care of the patient.: Yes I have reviewed all pertinent clinical information, including history, physical exam and plan: Yes Notes (Text): 06/19/17 20:11 Please also see Physician Communication Note Jorje Jennings D.O.
[2017-06-20] MEDS ORDERED: Potassium Chloride 20 mEq ER Tab PO ONE ×2 (11:48→12:02)
--- NOTE | 2017-06-22 15:03 | CP.PCM.DIS ---
<NathanblancaHumble - Last Filed: 06/22/17 15:03> Provider - Provider Date of Admission: 06/13/17 09:52 Attending physician: Jorje Jennings MD Consults: Cardio - Dr. Dwight BROWN - Dr. Watters Res - Dr. Foy Time Spent in preparation of Discharge (in minutes): 40 Diagnosis - Discharge Diagnosis (1) Infection of prosthetic left knee joint Status: Resolved Hospital Course - Lab Results Lab Results: Micro Results 06/17/17 Unknown Sputum Gram Stain - Final 06/17/17 Unknown Sputum Sputum Culture - Final NORMAL ORAL BENJAMIN 06/13/17 18:45 Blood-Venous Blood Culture - Final NO GROWTH AFTER 5 DAYS 06/13/17 18:45 Blood-Venous Gram Stain - Final TEST NOT PERFORMED 06/13/17 18:15 Blood-Venous Blood Culture - Final NO GROWTH AFTER 5 DAYS 06/13/17 18:15 Blood-Venous Gram Stain - Final TEST NOT PERFORMED 06/13/17 Unknown Other: Please Indicate Gram Stain - Final 06/13/17 Unknown Other: Please Indicate Tissue Culture - Final No growth. 06/13/17 14:05 Other: Please Indicate Gram Stain - Final 06/13/17 14:05 Other: Please Indicate Tissue Culture - Final No growth. 06/13/17 14:04 Other: Please Indicate Gram Stain - Final 06/13/17 14:04 Other: Please Indicate Tissue Culture - Final No growth. 06/13/17 12:54 Other: Please Indicate Gram Stain - Final 06/13/17 12:54 Other: Please Indicate Tissue Culture - Final No growth. 06/15/17 12:31 Urine Urine Culture - Final No Growth (<1,000 CFU/ML) 06/13/17 19:09 Urine,Catheterized Urine Culture - Final No Growth (<1,000 CFU/ML) 06/13/17 16:24 Knee - Left Fungal Culture - Preliminary 06/13/17 16:27 Knee - Left Fungal Culture - Preliminary 06/14/17 09:44 Knee - Left Fungal Culture - Preliminary 06/14/17 09:43 Knee - Left Fungal Culture - Preliminary 06/13/17 12:54 Knee Left Gram Stain - Final Most Recent Lab Values WBC 9.4 K/uL (4.8-10.8) 06/19/17 06:08 RBC 3.88 Mil/uL (4.40-5.90) L 06/19/17 06:08 Hgb 10.0 g/dL (12.0-18.0) L 06/19/17 06:08 Hct 29.2 % (35.0-51.0) L 06/19/17 06:08 MCV 75.2 fL (80.0-94.0) L 06/19/17 06:08 MCH 25.7 pg (27.0-31.0) L 06/19/17 06:08 MCHC 34.1 g/dL (33.0-37.0) 06/19/17 06:08 RDW 23.2 % (11.5-14.5) H 06/19/17 06:08 Plt Count 229 K/uL (130-400) 06/19/17 06:08 MPV 8.8 fL (7.2-11.7) 06/19/17 06:08 Neut % (Auto) 73.5 % (50.0-75.0) 06/19/17 06:08 Lymph % (Auto) 10.7 % (20.0-40.0) L 06/19/17 06:08 [place] % (Auto) 8.8 % (0.0-10.0) 06/19/17 06:08 Eos % (Auto) 6.5 % (0.0-4.0) H 06/19/17 06:08 Baso % (Auto) 0.5 % (0.0-2.0) 06/19/17 06:08 Neut # 6.9 K/uL (1.8-7.0) 06/19/17 06:08 Lymph # 1.0 K/uL (1.0-4.3) 06/19/17 06:08 [place] # 0.8 K/uL (0.0-0.8) 06/19/17 06:08 Eos # 0.6 K/uL (0.0-0.7) 06/19/17 06:08 Baso # 0.0 K/uL (0.0-0.2) 06/19/17 06:08 Neutrophils % (Manual) 77 % (50-75) H 06/18/17 11:10 Band Neutrophils % 1 % (0-2) 06/18/17 11:10 Lymphocytes % (Manual) 11 % (20-40) L 06/18/17 11:10 Reactive Lymphs % 7 % (0-0) H 06/17/17 04:28 Monocytes % (Manual) 7 % (0-10) 06/18/17 11:10 Eosinophils % (Manual) 4 % (0-4) 06/18/17 11:10 Nucleated RBC % 1 % (0-0) H 06/17/17 04:28 Platelet Estimate Normal (NORMAL) 06/18/17 11:10 Large Platelets Present 06/18/17 11:10 Polychromasia Slight 06/18/17 11:10 Hypochromasia (manual) Slight 06/18/17 11:10 Poikilocytosis (manual Moderate 06/18/17 11:10 Anisocytosis (manual) Moderate 06/18/17 11:10 Microcytosis (manual) Slight 06/18/17 11:10 Macrocytosis (manual) Slight 06/18/17 11:10 Spherocytes Moderate 06/18/17 11:10 Target Cells Moderate 06/18/17 11:10 Ovalocytes Slight 06/18/17 11:10 Helmet Cells 06/18/17 11:10 Schistocytes Moderate 06/17/17 04:28 PT 25.4 SECONDS (9.7-12.2) H 06/19/17 06:08 INR 2.2 06/19/17 06:08 D-Dimer, Quantitative 2843 ng/mlDDU (0-243) H 06/17/17 04:28 Puncture Site Lra 06/14/17 13:13 pCO2 42 mm/Hg (35-45) 06/14/17 13:13 pO2 52 mm/Hg (80-100) L 06/14/17 13:13 HCO3 21.7 mmol/L (21-28) 06/14/17 13:13 ABG pH 7.33 (7.35-7.45) L 06/14/17 13:13 ABG Total CO2 23.4 mmol/L (22-28) 06/14/17 13:13 ABG O2 Saturation 90.2 % (95-98) L 06/14/17 13:13 ABG Base Excess -3.7 mmol/L (-2.0-3.0) L 06/14/17 13:13 Boris Test Pos 06/14/17 13:13 ABG Potassium 4.2 mmol/L (3.6-5.2) 06/14/17 13:13 A-a O2 Difference 67.0 mm/Hg 06/14/17 13:13 Respiratory Index 1.3 06/14/17 13:13 Sodium 142.0 mmol/l (132-148) 06/14/17 13:13 Chloride 116.0 mmol/L (98-107) H 06/14/17 13:13 Glucose 135 mg/dl (75-110) H 06/14/17 13:13 Lactate 1.4 mmol/L (0.7-2.1) 06/14/17 13:13 Liter Flow 1.0 06/14/17 13:13 FiO2 24.0 % 06/14/17 13:13 Sodium 136 mmol/L (132-148) 06/19/17 06:08 Potassium 3.3 mmol/L (3.6-5.2) L 06/19/17 06:08 Chloride 103 mmol/L (98-107) 06/19/17 06:08 Carbon Dioxide 28 mmol/L (22-30) 06/19/17 06:08 Anion Gap 8 (10-20) L 06/19/17 06:08 BUN 10 mg/dL (9-20) 06/19/17 06:08 Creatinine 0.8 mg/dL (0.8-1.5) 06/19/17 06:08 Est GFR ( Amer) > 60 06/19/17 06:08 Est GFR (Non-Af Amer) > 60 06/19/17 06:08 POC Glucose (mg/dL) 131 mg/dL (65-110) H 06/14/17 11:56 Random Glucose 86 mg/dL (75-110) 06/19/17 06:08 Calcium 7.9 mg/dl (8.6-10.4) L 06/19/17 06:08 Phosphorus 3.5 mg/dL (2.5-4.5) 06/19/17 06:08 Magnesium 1.7 mg/dL (1.6-2.3) 06/19/17 06:08 Total Bilirubin 0.9 mg/dL (0.2-1.3) 06/19/17 06:08 Direct Bilirubin 0.3 mg/dL (0.0-0.4) 06/13/17 18:00 AST 52 U/L (17-59) 06/19/17 06:08 ALT 45 U/L (21-72) 06/19/17 06:08 Alkaline Phosphatase 77 U/L (38-126) 06/19/17 06:08 Total Creatine Kinase 182 U/L (55-170) H 06/15/17 06:24 CK-MB (Mass) 1.95 ng/mL (0.0-3.38) 06/15/17 06:24 Troponin I, Quant 0.0330 ng/mL (0.00-0.120) 06/15/17 06:24 Total Protein 6.5 g/dL (6.3-8.3) 06/19/17 06:08 Albumin 2.6 g/dL (3.5-5.0) L 06/19/17 06:08 Globulin 3.9 gm/dL (2.2-3.9) 06/19/17 06:08 Albumin/Globulin Ratio 0.7 (1.0-2.1) L 06/19/17 06:08 25-OH Vitamin D Total 13.4 NG/ML (30.0-100.0) L 06/15/17 06:24 Arterial Blood Potassium 4.2 mmol/L (3.6-5.2) 06/14/17 13:13 Urine Color Yellow (YELLOW) 06/15/17 05:34 Urine Clarity Hazy (Clear) 06/15/17 05:34 Urine pH 5.0 (5.0-8.0) 06/15/17 05:34 Ur Specific [place] 1.013 (1.003-1.030) 06/15/17 05:34 Urine Protein 1+ mg/dL (NEGATIVE) H 06/15/17 05:34 Urine Glucose (UA) Normal mg/dL (Normal) 06/15/17 05:34 Urine Ketones Negative mg/dL (NEGATIVE) 06/15/17 05:34 Urine Blood 2+ (NEGATIVE) H 06/15/17 05:34 Urine Nitrate Negative (NEGATIVE) 06/15/17 05:34 Urine Bilirubin Negative (NEGATIVE) 06/15/17 05:34 Urine Urobilinogen Normal mg/dL (0.2-1.0) 06/15/17 05:34 Ur Leukocyte Esterase 3+ Sandra/uL (Negative) H 06/15/17 05:34 Urine WBC (Auto) 57 /hpf (0-5) H 06/15/17 05:34 Urine RBC (Auto) 6 /hpf (0-3) H 06/15/17 05:34 Urine WBC Clumps (Auto) Few /hpf (NONE) H 06/15/17 05:34 Ur Squamous Epith Cells 2 /hpf (0-5) 06/15/17 05:34 Urine Bacteria Rare (<OCC) 06/15/17 05:34 Fluid Type Synovial fluid 06/13/17 13:06 Synovial WBC 34989.0 /mm3 (0.0-150.0) H 06/13/17 13:06 Synovial RBC 07531.0 /mm3 (0.0-0.0) H 06/13/17 13:06 Synovial Neutrophils 93.0 % (0-0) H 06/13/17 13:06 Synovial Lymphocytes 2.0 % (0-0) H 06/13/17 13:06 Synov Monos/Macrophage 3 % (0-0) H 06/13/17 13:06 Synovial Fluid Comment TEST NOT PERFORMED 06/13/17 13:06 Vancomycin Trough 16.1 ug/mL (5.0-10.0) H 06/15/17 13:11 Digoxin 1.4 ng/mL (0.8-2.0) 06/17/17 13:42 Blood Type O POSITIVE 06/16/17 21:19 Antibody Screen Negative 06/16/17 21:19 Discharge Exam - Additional Findings Additional findings: - Constitutional Appears: Non-toxic, No Acute Distress - Head Exam Head Exam: ATRAUMATIC, NORMAL INSPECTION, NORMOCEPHALIC - Eye Exam Eye Exam: EOMI, Normal appearance - ENT Exam ENT Exam: Mucous Membranes Moist - Respiratory Exam Respiratory Exam: Clear to Ausculation Bilateral. absent: Rales, Rhonchi - Cardiovascular Exam Cardiovascular Exam: +S1, +S2 - GI/Abdominal Exam GI & Abdominal Exam: Soft. absent: Tenderness - Extremities Exam Extremities Exam: Normal Capillary Refill - Neurological Exam Neurological Exam: Alert, Oriented x3 - Psychiatric Exam Psychiatric exam: Normal Affect, Normal Mood Discharge Plan - Follow Up Plan Condition: STABLE Disposition: TRANSF TO SNF Instructions: Heart Failure (DC), Heart Healthy Diet (DC), Pain Management After Surgery (DC), Revision Total Joint Arthroplasty (DC) Additional Instructions: The Patient will need to be continued on the following antibiotics at [facility] 1). Aztreonam 1 gm IV Q12H through 07/11/17 (for a total of 4 weeks from ) 2). Vancomycin 1 gm IV Q12H through 07/25/17 (for a total of 6 weeks from ) 3). Mycamine 100 mcg IV Q24H through 07/11/17 (for a total of 4 weeks from 06/13) 4). Fluconazole 200 mg PO 1x/day from 07/12/17 through 07/26/17 (for a total of 2 weeks) The following medications from should also be continued: 1). Bosentan 125 mg PO 2x/day 2). Tadalafil 20 mg PO 1x/day 3). Tyvaso 600 mcg/ml INH Q6H BiPAP should be used as needed. Patient will need Vancomycin Trough measured every Monday. Patient will need weekly CMP, CBC with differential. Patient will need to have Digoxin level monitored. Once at [facility], Infectious Disease Dr. Andra Watters should be consulted and updated as to patient progress Patient's Orthopedic Surgeon Dr. Cedillo should also be updated as to patient' s progress and status Patient should be continued on current medication management as per medication reconciliation list. Patient is should be continued on Coumadin 5 mg PO x 1 day in evening with monitoring of INR at [facility]. Upon his discharge from [facility] patient will need follow with the following physicians: 1). PMD Dr. Isaak Ge 2). Security Software Engineer Dr. Li 3). Apparel Fashion Designer Dr. Woo Referrals: Seth Abbott MD [Staff Provider] - <Jorje Jennings - Last Filed: 06/22/17 20:54> Provider - Provider Date of Admission: 06/13/17 09:52 Attending physician: Jorje Jennings MD Hospital Course - Lab Results Lab Results: Micro Results 06/17/17 Unknown Sputum Gram Stain - Final 06/17/17 Unknown Sputum Sputum Culture - Final NORMAL ORAL BENJAMIN 06/13/17 18:45 Blood-Venous Blood Culture - Final NO GROWTH AFTER 5 DAYS 06/13/17 18:45 Blood-Venous Gram Stain - Final TEST NOT PERFORMED 06/13/17 18:15 Blood-Venous Blood Culture - Final NO GROWTH AFTER 5 DAYS 06/13/17 18:15 Blood-Venous Gram Stain - Final TEST NOT PERFORMED 06/13/17 Unknown Other: Please Indicate Gram Stain - Final 06/13/17 Unknown Other: Please Indicate Tissue Culture - Final No growth. 06/13/17 14:05 Other: Please Indicate Gram Stain - Final 06/13/17 14:05 Other: Please Indicate Tissue Culture - Final No growth. 06/13/17 14:04 Other: Please Indicate Gram Stain - Final 06/13/17 14:04 Other: Please Indicate Tissue Culture - Final No growth. 06/13/17 12:54 Other: Please Indicate Gram Stain - Final 06/13/17 12:54 Other: Please Indicate Tissue Culture - Final No growth. 06/15/17 12:31 Urine Urine Culture - Final No Growth (<1,000 CFU/ML) 06/13/17 19:09 Urine,Catheterized Urine Culture - Final No Growth (<1,000 CFU/ML) 06/13/17 16:24 Knee - Left Fungal Culture - Preliminary 06/13/17 16:27 Knee - Left Fungal Culture - Preliminary 06/14/17 09:44 Knee - Left Fungal Culture - Preliminary 06/14/17 09:43 Knee - Left Fungal Culture - Preliminary 06/13/17 12:54 Knee Left Gram Stain - Final Most Recent Lab Values WBC 9.4 K/uL (4.8-10.8) 06/19/17 06:08 RBC 3.88 Mil/uL (4.40-5.90) L 06/19/17 06:08 Hgb 10.0 g/dL (12.0-18.0) L 06/19/17 06:08 Hct 29.2 % (35.0-51.0) L 06/19/17 06:08 MCV 75.2 fL (80.0-94.0) L 06/19/17 06:08 MCH 25.7 pg (27.0-31.0) L 06/19/17 06:08 MCHC 34.1 g/dL (33.0-37.0) 06/19/17 06:08 RDW 23.2 % (11.5-14.5) H 06/19/17 06:08 Plt Count 229 K/uL (130-400) 06/19/17 06:08 MPV 8.8 fL (7.2-11.7) 06/19/17 06:08 Neut % (Auto) 73.5 % (50.0-75.0) 06/19/17 06:08 Lymph % (Auto) 10.7 % (20.0-40.0) L 06/19/17 06:08 [place] % (Auto) 8.8 % (0.0-10.0) 06/19/17 06:08 Eos % (Auto) 6.5 % (0.0-4.0) H 06/19/17 06:08 Baso % (Auto) 0.5 % (0.0-2.0) 06/19/17 06:08 Neut # 6.9 K/uL (1.8-7.0) 06/19/17 06:08 Lymph # 1.0 K/uL (1.0-4.3) 06/19/17 06:08 [place] # 0.8 K/uL (0.0-0.8) 06/19/17 06:08 Eos # 0.6 K/uL (0.0-0.7) 06/19/17 06:08 Baso # 0.0 K/uL (0.0-0.2) 06/19/17 06:08 Neutrophils % (Manual) 77 % (50-75) H 06/18/17 11:10 Band Neutrophils % 1 % (0-2) 06/18/17 11:10 Lymphocytes % (Manual) 11 % (20-40) L 06/18/17 11:10 Reactive Lymphs % 7 % (0-0) H 06/17/17 04:28 Monocytes % (Manual) 7 % (0-10) 06/18/17 11:10 Eosinophils % (Manual) 4 % (0-4) 06/18/17 11:10 Nucleated RBC % 1 % (0-0) H 06/17/17 04:28 Platelet Estimate Normal (NORMAL) 06/18/17 11:10 Large Platelets Present 06/18/17 11:10 Polychromasia Slight 06/18/17 11:10 Hypochromasia (manual) Slight 06/18/17 11:10 Poikilocytosis (manual Moderate 06/18/17 11:10 Anisocytosis (manual) Moderate 06/18/17 11:10 Microcytosis (manual) Slight 06/18/17 11:10 Macrocytosis (manual) Slight 06/18/17 11:10 Spherocytes Moderate 06/18/17 11:10 Target Cells Moderate 06/18/17 11:10 Ovalocytes Slight 06/18/17 11:10 Helmet Cells 06/18/17 11:10 Schistocytes Moderate 06/17/17 04:28 PT 25.4 SECONDS (9.7-12.2) H 06/19/17 06:08 INR 2.2 06/19/17 06:08 D-Dimer, Quantitative 2843 ng/mlDDU (0-243) H 06/17/17 04:28 Puncture Site Lra 06/14/17 13:13 pCO2 42 mm/Hg (35-45) 06/14/17 13:13 pO2 52 mm/Hg (80-100) L 06/14/17 13:13 HCO3 21.7 mmol/L (21-28) 06/14/17 13:13 ABG pH 7.33 (7.35-7.45) L 06/14/17 13:13 ABG Total CO2 23.4 mmol/L (22-28) 06/14/17 13:13 ABG O2 Saturation 90.2 % (95-98) L 06/14/17 13:13 ABG Base Excess -3.7 mmol/L (-2.0-3.0) L 06/14/17 13:13 Boris Test Pos 06/14/17 13:13 ABG Potassium 4.2 mmol/L (3.6-5.2) 06/14/17 13:13 A-a O2 Difference 67.0 mm/Hg 06/14/17 13:13 Respiratory Index 1.3 06/14/17 13:13 Sodium 142.0 mmol/l (132-148) 06/14/17 13:13 Chloride 116.0 mmol/L (98-107) H 06/14/17 13:13 Glucose 135 mg/dl (75-110) H 06/14/17 13:13 Lactate 1.4 mmol/L (0.7-2.1) 06/14/17 13:13 Liter Flow 1.0 06/14/17 13:13 FiO2 24.0 % 06/14/17 13:13 Sodium 136 mmol/L (132-148) 06/19/17 06:08 Potassium 3.3 mmol/L (3.6-5.2) L 06/19/17 06:08 Chloride 103 mmol/L (98-107) 06/19/17 06:08 Carbon Dioxide 28 mmol/L (22-30) 06/19/17 06:08 Anion Gap 8 (10-20) L 06/19/17 06:08 BUN 10 mg/dL (9-20) 06/19/17 06:08 Creatinine 0.8 mg/dL (0.8-1.5) 06/19/17 06:08 Est GFR ( Amer) > 60 06/19/17 06:08 Est GFR (Non-Af Amer) > 60 06/19/17 06:08 POC Glucose (mg/dL) 131 mg/dL (65-110) H 06/14/17 11:56 Random Glucose 86 mg/dL (75-110) 06/19/17 06:08 Calcium 7.9 mg/dl (8.6-10.4) L 06/19/17 06:08 Phosphorus 3.5 mg/dL (2.5-4.5) 06/19/17 06:08 Magnesium 1.7 mg/dL (1.6-2.3) 06/19/17 06:08 Total Bilirubin 0.9 mg/dL (0.2-1.3) 06/19/17 06:08 Direct Bilirubin 0.3 mg/dL (0.0-0.4) 06/13/17 18:00 AST 52 U/L (17-59) 06/19/17 06:08 ALT 45 U/L (21-72) 06/19/17 06:08 Alkaline Phosphatase 77 U/L (38-126) 06/19/17 06:08 Total Creatine Kinase 182 U/L (55-170) H 06/15/17 06:24 CK-MB (Mass) 1.95 ng/mL (0.0-3.38) 06/15/17 06:24 Troponin I, Quant 0.0330 ng/mL (0.00-0.120) 06/15/17 06:24 Total Protein 6.5 g/dL (6.3-8.3) 06/19/17 06:08 Albumin 2.6 g/dL (3.5-5.0) L 06/19/17 06:08 Globulin 3.9 gm/dL (2.2-3.9) 06/19/17 06:08 Albumin/Globulin Ratio 0.7 (1.0-2.1) L 06/19/17 06:08 25-OH Vitamin D Total 13.4 NG/ML (30.0-100.0) L 06/15/17 06:24 Arterial Blood Potassium 4.2 mmol/L (3.6-5.2) 06/14/17 13:13 Urine Color Yellow (YELLOW) 06/15/17 05:34 Urine Clarity Hazy (Clear) 06/15/17 05:34 Urine pH 5.0 (5.0-8.0) 06/15/17 05:34 Ur Specific [place] 1.013 (1.003-1.030) 06/15/17 05:34 Urine Protein 1+ mg/dL (NEGATIVE) H 06/15/17 05:34 Urine Glucose (UA) Normal mg/dL (Normal) 06/15/17 05:34 Urine Ketones Negative mg/dL (NEGATIVE) 06/15/17 05:34 Urine Blood 2+ (NEGATIVE) H 06/15/17 05:34 Urine Nitrate Negative (NEGATIVE) 06/15/17 05:34 Urine Bilirubin Negative (NEGATIVE) 06/15/17 05:34 Urine Urobilinogen Normal mg/dL (0.2-1.0) 06/15/17 05:34 Ur Leukocyte Esterase 3+ Sandra/uL (Negative) H 06/15/17 05:34 Urine WBC (Auto) 57 /hpf (0-5) H 06/15/17 05:34 Urine RBC (Auto) 6 /hpf (0-3) H 06/15/17 05:34 Urine WBC Clumps (Auto) Few /hpf (NONE) H 06/15/17 05:34 Ur Squamous Epith Cells 2 /hpf (0-5) 06/15/17 05:34 Urine Bacteria Rare (<OCC) 06/15/17 05:34 Fluid Type Synovial fluid 06/13/17 13:06 Synovial WBC 52207.0 /mm3 (0.0-150.0) H 06/13/17 13:06 Synovial RBC 28046.0 /mm3 (0.0-0.0) H 06/13/17 13:06 Synovial Neutrophils 93.0 % (0-0) H 06/13/17 13:06 Synovial Lymphocytes 2.0 % (0-0) H 06/13/17 13:06 Synov Monos/Macrophage 3 % (0-0) H 06/13/17 13:06 Synovial Fluid Comment TEST NOT PERFORMED 06/13/17 13:06 Vancomycin Trough 16.1 ug/mL (5.0-10.0) H 06/15/17 13:11 Digoxin 1.4 ng/mL (0.8-2.0) 06/17/17 13:42 Blood Type O POSITIVE 06/16/17 21:19 Antibody Screen Negative 06/16/17 21:19 Attending/Attestation - Attestation I have personally seen and examined this patient.: Yes I have fully participated in the care of the patient.: Yes I have reviewed all pertinent clinical information, including history, physical exam and plan: Yes Notes (Text): 06/22/17 20:53 Discharge instructions were thoroughly gone over with the resident on the day of discharge. Please refer to last progress note. Jorje Jennings D.O.
--- NOTE | 2017-06-22 18:02 | CARD ---
APPROVED REPORT EKG Measurement Heart [id number] <Conclusion> Atrial flutter with variable AV block Right ventricular hypertrophy with repolarization abnormality Nonspecific T wave abnormality Abnormal ECG
== END 2017-06-19 20:10 | DRG 463 ==
LOC: C.9S 09:52 → C.6T 20:41
PROVIDERS: ADMIT Family Medicine; ATTEND Family Medicine
PROC: 0SHD08Z Insertion of Spacer into Left Knee Joint, Open Approach (ICD-10-PCS; 2017-06-13)
PROC: 0SBD0ZX Excision of Left Knee Joint, Open Approach, Diagnostic (ICD-10-PCS; 2017-06-13)
PROC: 0SPD0JZ Removal of Synthetic Substitute from Left Knee Joint, Open Approach (ICD-10-PCS; principal; 2017-06-13 11:43)
PROC: 02HV33Z Insertion of Infusion Device into Superior Vena Cava, Percutaneous Approach (ICD-10-PCS; 2017-06-14)
PROC: 3E1U38X Irrigation of Joints using Irrigating Substance, Percutaneous Approach, Diagnostic (ICD-10-PCS; 2017-06-14)
PROC: 30233N1 Transfusion of Nonautologous Red Blood Cells into Peripheral Vein, Percutaneous Approach (ICD-10-PCS; 2017-06-16)
DX: T84.54XA Infection and inflammatory reaction due to internal left knee prosthesis, initial encounter (principal); A41.9 Sepsis, unspecified organism; I27.0 Primary pulmonary hypertension; I11.0 Hypertensive heart disease with heart failure; D57.1 Sickle-cell disease without crisis; I48.0 Paroxysmal atrial fibrillation; I50.9 Heart failure, unspecified; M25.062 Hemarthrosis, left knee; E86.1 Hypovolemia; I25.10 Atherosclerotic heart disease of native coronary artery without angina pectoris; R09.02 Hypoxemia; I95.81 Postprocedural hypotension; Y83.1 Surgical operation with implant of artificial internal device as the cause of abnormal reaction of the patient, or of later complication, without mention of misadventure at the time of the procedure; Z86.718 Personal history of other venous thrombosis and embolism; Z79.899 Other long term (current) drug therapy; Z86.61 Personal history of infections of the central nervous system; Z86.711 Personal history of pulmonary embolism; Z87.01 Personal history of pneumonia (recurrent); Z87.891 Personal history of nicotine dependence

== ENCOUNTER 2017-08-30 05:56 | Inpatient (IN) | payer MEDICARE ==
[2017-06-23 11:50] VITALS: PULSE 98; BMI 20.5
[2017-08-30] MEDS ORDERED: Bupivacaine Liposomal Inj 20 ml INFIL ONE (07:05)
--- NOTE | 2017-08-30 07:09 | CP.PCM.HP ---
History of Present Illness - History of Present Illness History of Present Illness: 71M 4 months s/p explant and antibiotic spacer placement for left prosthetic knee infection. Patient has been under care of Dr. Watters and completed course of IV antibiotics. Patient presents for revision total knee replacement. Patient has history of PE and chronic lung disease. Patient found to have possible nodule on preop CXR which was new finding. Patient underwent CT chest and no pulmonary mass was noted. 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 Patient denies cough/CP/SOB. Denies numbness/tingling. Present on Admission - Present on Admission Any Indicators Present on Admission: Yes History of DVT/PE: Yes Review of Systems - Review of Systems All systems: reviewed and no additional remarkable complaints except Past Patient History - Past Medical History & Family History Past Medical History?: Yes - Past Social History Smoking Status: Never Smoked - CARDIAC Hx Peripheral Edema: Yes - PULMONARY Hx Respiratory Disorders: Yes (pulmonary hypertension) Hx Pneumonia: Yes (aug 2016) - NEUROLOGICAL Hx Neurological Disorder: Yes Hx Dizziness: Yes Hx Meningitis: Yes (1999) - HEENT Hx HEENT Problems: Yes Hx Cataracts: Yes (bilat iol) 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) - RENAL Hx Chronic Kidney Disease: No - ENDOCRINE/METABOLIC Hx Endocrine Disorders: No - HEMATOLOGICAL/ONCOLOGICAL Hx Blood Disorders: Yes Hx Blood Transfusions: Yes Hx Blood Transfusion Reaction: No Hx Cancer: Yes (prostate) Hx Sickle Cell Disease: Yes - INTEGUMENTARY Hx Dermatological Problems: No - MUSCULOSKELETAL/RHEUMATOLOGICAL Hx Musculoskeletal Disorders: Yes Hx Falls: No Hx Osteoarthritis: Yes Other/Comment: left knee replacement 5 years ago - GASTROINTESTINAL Hx Gastrointestinal Disorders: No - GENITOURINARY/GYNECOLOGICAL Hx Genitourinary Disorders: No - PSYCHIATRIC Hx Psychophysiologic Disorder: No Hx Substance Use: No - SURGICAL HISTORY Other/Comment: cochlear implant left ear - ANESTHESIA Hx Anesthesia: Yes Hx Anesthesia Reactions: No Hx Malignant Hyperthermia: No Has any member of the family had a problem w/ anesthesia?: No Meds Allergies/Adverse Reactions: Allergies Allergy/AdvReac Type Severity Reaction Status Date / Time cephalexin [From Keflex] Allergy Intermediate ITCHING Verified 06/07/17 08:31 Physical Exam - Constitutional Appears: Well, No Acute Distress - Respiratory Exam Respiratory Exam: NORMAL BREATHING PATTERN - Extremities Exam Additional comments: +DP/PT pulses, calves soft NT neg homans - Expanded Lower Extremities Exam Left Ankle exam: FULL ROM - Neurological Exam Neurological exam: Alert, Oriented x3 - Psychiatric Exam Psychiatric exam: Normal Affect, Normal Mood - Skin Skin Exam: Dry, Intact, Normal Color, Warm Assessment & Plan (1) Infection of prosthetic left knee joint Assessment and Plan: For revision TKR T&C INR 1.2 for OR Status: Resolved
[2017-08-30 07:35] LABS: INR 1.2; PROTHROMBIN TIME 13.2 SECONDS (9.7-12.2)
[2017-08-30] MEDS ORDERED: ePHEDrine 50 mg/ml Inj ONE (07:43)
[2017-08-30] MEDS ORDERED: Etomidate 20 mg/10ml Inj IV ONE (07:43)
[2017-08-30] MEDS ORDERED: Rocuronium 10 mg/ml (5 ml) ONE ×2 (07:43→09:08)
[2017-08-30] MEDS ORDERED: Midazolam 2 MG/2 ML VIAL ONE (07:44)
[2017-08-30] MEDS ORDERED: Propofol 10 mg/ml Inj (20 ML) ONE (07:52)
[2017-08-30] MEDS ORDERED: Lactated Ringer's 1,000 ML IV ONE ×3 (07:55→12:52)
[2017-08-30] MEDS ORDERED: Vancomycin 1 g Inj ONE ×3 (08:29→10:02)
[2017-08-30] MEDS ORDERED: Phenylephrine 10 mg/ml Inj ONE (09:08)
[2017-08-30] MEDS: Bacitracin 150,000 UNIT in Sodium Chloride 0.9% Irrig 3,000 ML IR SCH (09:29)
[2017-08-30] MEDS ORDERED: Esmolol 100 mg/10ml Inj IV ONE (09:58)
[2017-08-30] MEDS ORDERED: Sodium Chloride 0.9% 60 ML IV ONE (10:08)
[2017-08-30] MEDS ORDERED: Bacitracin 150,000 UNIT in Sodium Chloride 0.9% Irrig 3,000 ML IR SCH (10:45)
[2017-08-30] MEDS ORDERED: Thrombin Topical 20,000 Intl Units Spray Kit TOP ONE (11:06)
[2017-08-30] MEDS ORDERED: Absorbable Gelatin Sponge Size 100 ONE (11:13)
[2017-08-30] MEDS ORDERED: Sodium Chloride 0.9% 1,000 ML IV ONE (12:52)
[2017-08-30] MEDS ORDERED: Oxycodone/Acetaminophen 5/325 mg Tab PO PRN (13:05)
[2017-08-30] MEDS ORDERED: Sodium Chloride 0.9% 1,000 ML IV SCH (13:15)
[2017-08-30] MEDS ORDERED: Bupivacaine HCl 0.5% PF (10 ml) Inj ONE (13:31)
--- NOTE | 2017-08-30 13:46 | CP.PCM.CON ---
History of Present Illness - History of Present Illness History of Present Illness: INFECTIOUS DISEASE CONSULT; HPI; 71M 4 months s/p explant and antibiotic spacer placement 06/13/17 for left prosthetic knee infection. Patient has completed course of IV antibiotics FOR >8WKS AND /ANTFUNGAL X 4WKS . Patient presently admitted for revision of total knee replacement.ALL CULTURES FROM ASPIRATE AND TISSUE CULTURE REMAINED -VE FROM 06/13/17. Patient has history of PE and chronic lung disease. Patient found to have possible nodule on preop CXR which was new finding. Patient underwent CT chest and no pulmonary mass was noted. 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 Patient denies cough/CP/SOB. Denies numbness/tingling. Infectious disease consultation requested by Dr. Cedillo orthopedic surgeon postoperatively after revision of total knee replacement today. PATIENT RECEIVED 1 DOSE OF VANCOMYCIN 2 G IN THE OR AND PRESENTLY GETTING 1 G EVERY 12 HOURLY.08/30/17. PAST MEDICAL HISTORY; ABOVE. PSH; BILATERAL CATARACT SURGERY, COCHLEAR IMPLANT LEFT EAR, LEFT TOTAL KNEE REPLACEMENT 5 YEARS AGO. FAMILY HISTORY; NONCONTRIBUTORY MEDS; SEE MARS. ALLERGY. CEPHALEXIN . TOLERATES IV AZACTAM. SOCIAL HISTORY; DENIES SMOKING OR DRINKING.LIVES WITH HIS . Review of Systems - Constitutional Constitutional: absent: Chills, Fever - EENT Eyes: As Per HPI Nose/Mouth/Throat: Dry Mouth - Cardiovascular Cardiovascular: absent: Chest Pain, Dyspnea - Respiratory Respiratory: absent: Cough, Hemoptysis, Chest Congestion - Gastrointestinal Gastrointestinal: absent: Abdominal Pain, Diarrhea, Nausea, Vomiting - Genitourinary Genitourinary: absent: Dysuria, Freq UTI - Musculoskeletal Musculoskeletal: absent: Back Pain - Neurological Neurological: absent: Numbness, Paresthesias - Hematologic/Lymphatic Hematologic: As Per HPI. absent: Easy Bleeding, Easy Bruising Past Patient History - Past Medical History & Family History Past Medical History?: Yes - Past Social History Smoking Status: Never Smoked - CARDIAC Hx Peripheral Edema: Yes - PULMONARY Hx Respiratory Disorders: Yes (pulmonary hypertension) Hx Pneumonia: Yes (aug 2016) - NEUROLOGICAL Hx Neurological Disorder: Yes Hx Dizziness: Yes Hx Meningitis: Yes (1999) - HEENT Hx HEENT Problems: Yes Hx Cataracts: Yes (bilat iol) 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) - RENAL Hx Chronic Kidney Disease: No - ENDOCRINE/METABOLIC Hx Endocrine Disorders: No - HEMATOLOGICAL/ONCOLOGICAL Hx Blood Disorders: Yes Hx Blood Transfusions: Yes Hx Blood Transfusion Reaction: No Hx Cancer: Yes (prostate) Hx Sickle Cell Disease: Yes - INTEGUMENTARY Hx Dermatological Problems: No - MUSCULOSKELETAL/RHEUMATOLOGICAL Hx Musculoskeletal Disorders: Yes Hx Falls: No Hx Osteoarthritis: Yes Other/Comment: left knee replacement 5 years ago - GASTROINTESTINAL Hx Gastrointestinal Disorders: No - GENITOURINARY/GYNECOLOGICAL Hx Genitourinary Disorders: No - PSYCHIATRIC Hx Psychophysiologic Disorder: No Hx Substance Use: No - SURGICAL HISTORY Other/Comment: cochlear implant left ear - ANESTHESIA Hx Anesthesia: Yes Hx Anesthesia Reactions: No Hx Malignant Hyperthermia: No Has any member of the family had a problem w/ anesthesia?: No Meds Allergies/Adverse Reactions: Allergies Allergy/AdvReac Type Severity Reaction Status Date / Time cephalexin [From Keflex] Allergy Intermediate ITCHING Verified 06/07/17 08:31 - Medications Medications: Current Medications Acetaminophen (Tylenol 325mg Tab) 650 mg PO Q4 PRN PRN Reason: Fever 101 degrees fahrenheit Docusate Sodium (Colace) 100 mg PO BID [facility] Enoxaparin Sodium (Lovenox) 40 mg SC DAILY [facility] Furosemide (Lasix) 20 mg PO DAILY [facility] Home Med (Bosentan [Tracleer]) 125 mg PO BID [facility] Home Med (Tadalafil [Adcirca]) 20 mg PO DAILY [facility] Home Med (Treprostinil [Tyvaso]) 1 appl IH QID [facility] Hydromorphone HCl (Dilaudid) 0.5 mg IVP Q15M PRN PRN Reason: Pain, severe (8-10) Stop: 08/30/17 14:51 Last Admin: 08/30/17 13:36 Dose: 0.5 mg Hydromorphone HCl (Dilaudid) 0.5 mg IVP Q4H PRN PRN Reason: Pain, severe (8-10) Sodium Chloride (Sodium Chloride 0.9%) 1,000 mls @ 60 mls/hr IV .[id number] [facility] Vancomycin/Sodium Chloride (Vancomycin 1 Gm/Ns 200 Ml) 1 gm in 200 mls @ 200 mls/hr IVPB Q12H [facility] Stop: 09/04/17 20:01 Multivitamins (Hexavitamin) 1 tab PO DAILY [facility] Ondansetron HCl (Zofran Inj) 4 mg IVP ONCE PRN PRN Reason: Nausea/Vomiting Stop: 08/30/17 14:51 Oxycodone/Acetaminophen (Percocet 5/325 Mg Tab) 2 tab PO Q4H PRN PRN Reason: Pain, severe (8-10) Stop: 09/02/17 13:06 Physical Exam - Constitutional Appears: No Acute Distress, Cachectic - Head Exam Head Exam: NORMAL INSPECTION - Eye Exam Eye Exam: EOMI, PERRL - ENT Exam ENT Exam: Normal Oropharynx - Neck Exam Neck exam: Positive for: Normal Inspection - Respiratory Exam Respiratory Exam: Clear to Auscultation Bilateral - Cardiovascular Exam Cardiovascular Exam: REGULAR RHYTHM, +S1, +S2 - GI/Abdominal Exam GI & Abdominal Exam: Normal Bowel Sounds, Soft. absent: Organomegaly - Extremities Exam Extremities exam: Positive for: pedal pulses present. Negative for: calf tenderness, pedal edema - Expanded Lower Extremities Exam Left Lower Leg Exam: normal inspection Neuro vacular tendon exam: absent: extremity cold to touch, foot drop, sensory deficit (LEFT LEG POST OPTIVE DRESSING.) - Neurological Exam Neurological exam: Alert, CN II-XII Intact, Oriented x3 - Psychiatric Exam Psychiatric exam: Normal Mood - Skin Skin Exam: Normal Color, Warm Results - Vital Signs Recent Vital Signs: Last Vital Signs Temp 97.7 F 08/30/17 06:31 Pulse 59 L 08/30/17 06:31 Resp 18 08/30/17 06:31 BP 119/73 08/30/17 06:31 Pulse Ox 97 08/30/17 06:31 - Labs Labs: Laboratory Results - last 24 hr 08/30/17 08/30/17 07:23 07:23 PT 13.2 H INR 1.2 APTT 54 H Blood Type O POSITIVE Antibody Screen Positive Antibody Identification Cancelled Assessment & Plan (1) S/P TKR (total knee replacement) Assessment and Plan: AWAIT CULTURES/ASPIRATE OR 08/30/17. Aspirate fluid 08/30/17 few PMNs, no organisms seen. Gram stain aspirate 08/30/17 left knee; WBC 1-5 high-power field/no organisms seen. CONTINUE iv VANCOMYCIN 1 G EVERY 12 HOURLY.08/30/17 fOLLOW-UP VANCO TROUGH LEVEL PRIOR TO THE FOURTH DOSE AND KEEP BETWEEN 10 AND 20. fOLLOW-UP RENAL FUNCTIONS CLOSELY. PATIENT HAS A RIGHT UPPER ARM picc LINE IN PLACE SINCE 06/16/17. CATHETER CARE PRN Status: Acute (2) Atrial fibrillation Assessment and Plan: PER PMD. Status: Acute (3) Osteoarthritis Status: Acute (4) PHT (pulmonary hypertension) Status: Acute
--- NOTE | 2017-08-30 14:22 | PCM.ANESB7 ---
Adductor Canal Block - Adductor Canal Block Date of Procedure: 08/30/17 Anesthiologist: Trevin Frankel Procedure Performed: Adductor Canal Block Left - Procedure Adductor Canal Block: The procedure was explained to the patient that it is for the post-operative pain management. Consent was obtained after a thorough discussion with the patient regarding the benefits and possible complications of local anesthetic adductor canal block of the femoral nerve. Standard monitors, as defined by the ASA, were applied to the patient. Time-out was held with the circulating nurse to confirm the appropriate block. After applying supplemental oxygen and administering IV Sedation as needed, the patient was placed in supine position with and the operative leg was flexed slightly at the knee and externally rotated as needed, and was kept anatomically stable. The mid-thigh of the LEFT lower extremity was exposed. The ultrasound transducer was then applied transversely along the medial aspect, about midway down the thigh and the femoral artery and vein were identified in appropriate relation with the sartorius muscle. At this time, the femoral nerve was visualized lateral to the femoral artery within the canal. After thorough identification, this area area was prepped with Chloroprep solution three times and 1 % Lidocaine was injected subcutaneously for topical anesthesia. At this point, a #22 gauge Stimuplex 4-inch needle was inserted in-plane in a [id number] orientation, and advanced toward the saphenous nerve. Advancement was performed carefully under direct ultrasound visualization. After negative aspiration, ___5__cc of _0.5_% _bupivicaine was injected and this was followed with _15__cc of _05_% _bupivicaine__. Under ultrasound guidance the local anesthetics were observed spreading around the saphenous nerve. The needle was removed intact and sterile dressing was applied. The patient had stable vital signs, was conscious and in no apparent distress. The patient tolerated the adductor block well with stable vital signs, no parestheias, no sequelae or complaints.
--- NOTE | 2017-08-30 15:38 | RAD ---
PROCEDURE: Left femur HISTORY: s/p revision TKR COMPARISON: 06/13/2017 TECHNIQUE: Standard protocol for this study/examination. FINDINGS: Status post revision of left TKA are. No evidence of orthopedic hardware failure. IMPRESSION: Satisfactory postoperative status
--- NOTE | 2017-08-30 15:39 | RAD ---
PROCEDURE: Left Knee Radiographs. HISTORY: Left TKA are COMPARISON: None. FINDINGS: BONES: Expected postoperative findings distal femur proximal tibia. No evidence of hardware loosening. JOINTS: Normal. No osteoarthritis. JOINT EFFUSION: None. OTHER FINDINGS: None. IMPRESSION: Satisfactory postoperative status.
--- NOTE | 2017-08-30 15:40 | RAD ---
PROCEDURE: Radiographs of the left tibia and fibula. HISTORY: s/p revision TKR COMPARISON: None available. TECHNIQUE: Frontal and lateral views obtained. FINDINGS: BONES: Unremarkable left tibia and fibula is visualized in the context of recent TKR. JOINT SPACES: Expected postoperative findings. OTHER FINDINGS: None. IMPRESSION: Satisfactory postoperative status.
--- NOTE | 2017-08-30 15:49 | RAD ---
PROCEDURE: Intraoperative Fluoroscopy. HISTORY: LT. TOTAL KNEE ARTHROPLASTY FINDINGS: Fluoroscopic assistance was provided for left knee revision. Total fluoroscopic time (continuous mode) utilized during the procedure: 22.8 seconds.. Please refer to the operative report from
--- NOTE | 2017-08-30 18:31 | OP ---
PROCEDURE DATE: 08/30/2017 PREOPERATIVE DIAGNOSES: Infected left total knee, status post explant of the left total knee prosthesis and insertion of antibiotic spacer. POSTOPERATIVE DIAGNOSES: Infected left total knee, status post explant of the left total knee prosthesis and insertion of antibiotic spacer. PROCEDURE: Revision, left total knee arthroplasty. SURGEON: Seth Abbott MD ENGLISH FACULTY MEMBER: Rodger Gutierrez PA-C., and a third-year medical student. Ms. Gutierrez was scrubbed and present throughout the entire case and assisted with patient positioning, retraction, insertion of the knee implant, and wound closure. TYPE OF ANESTHESIA: General. COMPLICATIONS: None. ESTIMATED BLOOD LOSS: 250 mL. TOURNIQUET TIME: 130 minutes at 300 mmHg. IMPLANT: A Biomet OSS hinged total knee prosthesis. INDICATIONS FOR PROCEDURE: This is a 71-year-old gentleman who approximately two and half months ago underwent explant of infected left total knee implant. Patient subsequently had IV antibiotics and once he completed his course of IV antibiotics, recommendations were for biopsy of the tissue and possible reimplantation. The risks, benefits, and alternatives of the procedure were discussed with the patient and informed consent was obtained. DESCRIPTION OF PROCEDURE: After surgical site was finally verified in the preoperative holding area, the patient was taken to the operating room and placed supine on the operating room table. After administration of general anesthesia, Ahmadi catheter was inserted. Patient received 1 g of vancomycin IV. Tourniquet was placed about the left thigh. Care was taken to make sure all bony prominences and nerves were well padded and protected. Venodyne boot was placed on the nonoperative extremity and the left lower extremity was prepped and draped in usual sterile fashion. The tourniquet was inflated and the previous incision was re-incised. Soft tissues were dissected sharply and the medial parapatellar arthrotomy was performed. Small amount of fluid was noted and this was aspirated from the knee. No gross purulence was appreciated. The knee joint itself appeared to be clean. At this point, the fluid was sent for a stat Gram stain and while awaiting the result, the antibiotic spacer was removed. The deep tissues were taken from the medial aspect of the tibia and the distal femur and these were sent for stat frozen section. At this point, any loose or nonviable-appearing tissue was sharply debrided. Satisfied, using the intramedullary distal femoral guide, an additional 2-cm resection was performed. At this point, Gram stain results came, which showed no organisms and frozen section of both specimens showed no WBCs per high-power filed. Satisfied, after our revision, femoral cut was done. Our attention was directed to the tibia. Medullary canal of the tibia was reamed and the tibial plate was sized and revision tibial cut was also done. Being careful to maintain proper rotation, a trial implant was inserted and the femoral and tibial components were hinged and the knee was taken through range of motion and was noted to have full extension and flexion and stable. At this point, the trial components were removed and wound was pulse lavaged with almost approximately 9 liters of antibiotic saline solution. The bony surfaces were dried and the actual tibial and femoral components were cemented into place. Once the cement was hardened, care was taken to remove any excess cement and the wound was once again irrigated. The actual bearing and coupling was inserted and the prosthesis was hinged. Again, the knee was taken through a range of motion and was noted to be stable with full extension and flexion. At this point, the patella was noted to have some lateral tilt and this was corrected by performing a lateral retinacular release. A medium Hemovac drain was inserted and arthrotomy was closed using #1 Vicryl suture. Subcutaneous tissue was closed using 0-Vicryl and 2-0 Vicryl suture and the skin was closed using nylon. A ALISTAIR incisional wound VAC dressing was applied and a knee immobilizer was placed. Patient was taken to the recovery room in stable condition. Seth Abbott MD
[2017-08-30] MEDS: Vancomycin 1 gm/NS 200 ml 1 GM/200 ML BAG IVPB SCH (21:00)
[2017-08-31 07:34] LABS: MEAN CELL VOLUME 75.7 fL (80.0-94.0); MEAN CORPUSCULAR HEMOGLOBIN 26.2 pg (27.0-31.0); MEAN CORPUSCULAR HGB CONC 34.6 g/dL (33.0-37.0); MEAN PLATELET VOLUME 7.4 fL (7.2-11.7); RBC 2.92 Mil/uL (4.40-5.90)
[2017-08-31 07:38] LABS: INR 1.4; PROTHROMBIN TIME 15.3 SECONDS (9.7-12.2)
[2017-08-31 07:48] LABS: HEMOGLOBIN 7.7 g/dL (12.0-18.0); WHITE BLOOD COUNT 8.3 K/uL (4.8-10.8)
[2017-08-31] MEDS: Vancomycin 1 gm/NS 200 ml 1 GM/200 ML BAG IVPB SCH ×3 (08:00→19:47)
[2017-08-31 08:33] LABS: BLOOD UREA NITROGEN 12 mg/dL (9-20); CALCIUM 7.3 mg/dl (8.6-10.4); GFR AFRICAN-AMERICAN > 60; GFR NON-AFRICAN AMERICAN > 60
--- NOTE | 2017-08-31 09:08 | CP.PCM.PN ---
Subjective - Date & Time of Evaluation Date of Evaluation: 08/31/17 Time of Evaluation: 09:06 - Subjective Subjective: Patient states he is having a lot of pain. Denies CP/SOB/dizziness. Objective - Vital Signs/Intake and Output Vital Signs (last 24 hours): Temp Pulse Resp BP Pulse Ox 99 F 77 20 101/59 L 100 08/30/17 23:45 08/30/17 23:45 08/30/17 23:45 08/31/17 00:00 08/30/17 23:45 Intake and Output: 08/31/17 08/31/17 06:59 18:59 Intake Total 1080 Output Total 705 Balance 375 - Medications Medications: Current Medications Acetaminophen (Tylenol 325mg Tab) 650 mg PO Q4 PRN PRN Reason: Fever 101 degrees fahrenheit Docusate Sodium (Colace) 100 mg PO BID [facility] Last Admin: 08/30/17 21:18 Dose: 100 mg Enoxaparin Sodium (Lovenox) 40 mg SC DAILY [facility] Furosemide (Lasix) 20 mg PO DAILY [facility] Home Med (Bosentan [Tracleer]) 125 mg PO BID [facility] Home Med (Tadalafil [Adcirca]) 20 mg PO DAILY [facility] Home Med (Treprostinil [Tyvaso]) 1 appl IH QID [facility] Hydromorphone HCl (Dilaudid) 0.5 mg IVP Q4H PRN PRN Reason: Pain, severe (8-10) Sodium Chloride (Sodium Chloride 0.9%) 1,000 mls @ 60 mls/hr IV .[id number] [facility] Last Admin: 08/30/17 17:02 Dose: 60 mls/hr Vancomycin/Sodium Chloride (Vancomycin 1 Gm/Ns 200 Ml) 1 gm in 200 mls @ 200 mls/hr IVPB Q12H [facility] Stop: 09/04/17 20:01 Last Admin: 08/30/17 21:00 Dose: 200 mls/hr Multivitamins (Hexavitamin) 1 tab PO DAILY [facility] Oxycodone/Acetaminophen (Percocet 5/325 Mg Tab) 2 tab PO Q4H PRN PRN Reason: Pain, severe (8-10) Stop: 09/02/17 13:06 Warfarin Sodium (Coumadin) 5 mg PO 1800 [facility] Stop: 08/31/17 18:01 - Labs Labs: 08/31/17 07:25 08/31/17 07:25 PT 15.3 SECONDS (9.7-12.2) H 08/31/17 07:25 INR 1.4 08/31/17 07:25 APTT 54 SECONDS (21-34) H 08/30/17 07:23 - Extremities Exam Additional comments: Patient appears tired. +ROM ankle/toes, sensation intact +DP/PT pulse calves soft NT neg homans Assessment and Plan (1) S/P TKR (total knee replacement) Assessment & Plan: s/p revision TKR after explant for prosthetic joint infection -PT/OT -VTE proph with lovenox proph dose and restart coumadin -INR 1.4 -d/c planning -d/w Dr. Abbott, agrees with above Status: Acute (2) PHT (pulmonary hypertension) Assessment & Plan: cont home meds Status: Chronic (3) Acute blood loss anemia Assessment & Plan: transfusion 2u PRBC today Status: Acute
[2017-08-31] MEDS: Enoxaparin 40 mg Syringe SC SCH (10:10)
[2017-08-31] MEDS: Multiple Vitamins Tab PO SCH (11:01)
[2017-08-31 11:09] LABS: HEPATITIS B SURFACE AG NEGATIVE (NEGATIVE)
[2017-08-31 11:14] LABS: HEPATITIS A IGM NEGATIVE (NEGATIVE); HEPATITIS B CORE AB Negative (NEGATIVE)
[2017-08-31 11:26] LABS: HEPATITIS C ANTIBODY Negative (NEGATIVE)
--- NOTE | 2017-08-31 13:20 | CP.PCM.PN ---
Subjective - Date & Time of Evaluation Date of Evaluation: 08/31/17 Time of Evaluation: 13:19 - Subjective Subjective: CHIEF COMPLAINTS TODAY : AFEBRILE, VITAL SIGNS BP 90/52 .C/O POSTOPERATIVE PAIN LEFT KNEE. dENIES COUGH OR SHORTNESS OF BREATH. ROS. HEENT : N. Resp : No SOB wheezing, cough Cardio : No CP, PND orthopnea GI : No abd. Pain, n/v FLUID PUMP OPERATOR : No headache , focal deficit. Musculoskel : N Ext. : Pedal pulses intact, no edema or calf pain S/P LT TKR -POSTOPERATIVE DRESSING/ANTHONY HEMORRHAGIC FLUID. Derm : N Psych : N. PE. Pt. is alert awake in no distress. V.S As noted in the chart Head ,ear nose,throat and eyes : Normal. Neck : Supple with normal carotids. Lungs: Clear air entry. Heart : S1 & S2 normal . . No murmur. S4 + Abd : Soft non tender with normal bowel sounds. Neuro : Moves all ext. with no localized deficit. Ext : No edema with intact pulses. Neg. calf tenderness S/P LT TKR -POSTOPERATIVE DRESSING/ANTHONY HEMORRHAGIC FLUID. Derm : No rashes or decubitus ulcer. Radiology/Labs . wbc 8.3 H/H 7.7/22.1 CREATININE 0.9/bun 12 Gram stain body fluid -ve for 24 hours. Asssessment : postoperative-LT TKR S/P EXPLANTATION SPACER 08/30/17. ANEMIA. ATRIAL FIBRILLATION. HX PHT. OSTEOARTHRITIS. Plan : AWAIT CULTURES/ASPIRATE OR 08/30/17. Aspirate fluid 08/30/17 few PMNs, no organisms seen. Gram stain aspirate 08/30/17 left knee; WBC 1-5 high-power field/no organisms seen. CULTURE NEGATIVE FOR 24 HOURS. CONTINUE iv VANCOMYCIN 1 G EVERY 12 HOURLY.08/30/17 fOLLOW-UP VANCO TROUGH LEVEL PRIOR TO THE FOURTH DOSE AND KEEP BETWEEN 10 AND 20. fOLLOW-UP RENAL FUNCTIONS CLOSELY. PATIENT HAS A RIGHT UPPER ARM picc LINE IN PLACE SINCE 06/16/17. CATHETER CARE PRN WATCH H/H . Objective - Vital Signs/Intake and Output Vital Signs (last 24 hours): Temp Pulse Resp BP Pulse Ox 98.6 F 81 16 83/40 L 97 08/31/17 13:11 08/31/17 13:11 08/31/17 13:11 08/31/17 13:11 08/31/17 10:38 Intake and Output: 08/31/17 08/31/17 06:59 18:59 Intake Total 1080 325 Output Total 705 Balance 375 325 - Medications Medications: Current Medications Acetaminophen (Tylenol 325mg Tab) 650 mg PO Q4 PRN PRN Reason: Fever 101 degrees fahrenheit Docusate Sodium (Colace) 100 mg PO BID [facility] Last Admin: 08/31/17 11:03 Dose: 100 mg Enoxaparin Sodium (Lovenox) 40 mg SC DAILY [facility] Furosemide (Lasix) 20 mg PO DAILY [facility] Last Admin: 08/31/17 11:02 Dose: Not Given Home Med (Patient's Own Inhalation Solution) 1 ml INH RQID [facility] Home Med (Tadalafil [Adcirca]) 20 mg PO DAILY [facility] Home Med (Bosentan [Tracleer]) 125 mg PO BID [facility] Hydromorphone HCl (Dilaudid) 0.5 mg IVP Q4H PRN PRN Reason: Pain, severe (8-10) Vancomycin/Sodium Chloride (Vancomycin 1 Gm/Ns 200 Ml) 1 gm in 200 mls @ 200 mls/hr IVPB Q12H [facility] Stop: 09/04/17 20:01 Last Admin: 08/30/17 21:00 Dose: 200 mls/hr Multivitamins (Hexavitamin) 1 tab PO DAILY [facility] Last Admin: 08/31/17 11:01 Dose: 1 tab Oxycodone/Acetaminophen (Percocet 5/325 Mg Tab) 2 tab PO Q4H PRN PRN Reason: Pain, severe (8-10) Stop: 09/02/17 13:06 Warfarin Sodium (Coumadin) 5 mg PO 1800 [facility] Stop: 08/31/17 18:01 - Labs Labs: 08/31/17 07:25 08/31/17 07:25 PT 15.3 SECONDS (9.7-12.2) H 08/31/17 07:25 INR 1.4 08/31/17 07:25 APTT 54 SECONDS (21-34) H 08/30/17 07:23 Assessment and Plan (1) S/P TKR (total knee replacement) Status: Acute (2) Atrial fibrillation Status: Acute (3) Osteoarthritis Status: Acute (4) PHT (pulmonary hypertension) Status: Chronic
[2017-08-31] MEDS: TYVASO 0.6 MG/ML INH SCH ×2 (16:20→20:30)
[2017-09-01 06:28] LABS: HEMOGLOBIN 8.9 g/dL (12.0-18.0); MEAN CELL VOLUME 78.1 fL (80.0-94.0); MEAN CORPUSCULAR HEMOGLOBIN 26.9 pg (27.0-31.0); MEAN CORPUSCULAR HGB CONC 34.5 g/dL (33.0-37.0); MEAN PLATELET VOLUME 7.4 fL (7.2-11.7); RBC 3.3 Mil/uL (4.40-5.90); RED CELL DISTRIBUTION WIDTH 18.4 % (11.5-14.5); WHITE BLOOD COUNT 10.2 K/uL (4.8-10.8)
[2017-09-01 06:37] LABS: INR 1.4; PROTHROMBIN TIME 16.4 SECONDS (9.7-12.2)
[2017-09-01 06:47] LABS: BLOOD UREA NITROGEN 13 mg/dL (9-20); CALCIUM 7.2 mg/dl (8.6-10.4); GFR AFRICAN-AMERICAN > 60; GFR NON-AFRICAN AMERICAN > 60
[2017-09-01] MEDS: Vancomycin 1 gm/NS 200 ml 1 GM/200 ML BAG IVPB SCH ×2 (08:31→19:05)
--- NOTE | 2017-09-01 08:50 | RAD ---
PROCEDURE: CHEST RADIOGRAPH, 1 VIEW HISTORY: Chronic Pulmonary HTN COMPARISON: 08/25/2017. FINDINGS: The right PICC line terminates in the SVC. LUNGS: The lungs are well inflated. There is worsening pulmonary venous congestion. There is bibasilar atelectasis. PLEURA: No pneumothorax or pleural fluid seen. CARDIOVASCULAR: Normal. OSSEOUS STRUCTURES: No significant abnormalities. VISUALIZED UPPER ABDOMEN: Normal. OTHER FINDINGS: None. IMPRESSION: Worsening pulmonary venous congestion.
[2017-09-01] MEDS: TYVASO 0.6 MG/ML INH SCH ×4 (09:00→21:00)
[2017-09-01] MEDS ORDERED: Sodium Chloride 0.9% 1,000 ML IV SCH (09:30)
[2017-09-01] MEDS: Multiple Vitamins Tab PO SCH (09:41)
[2017-09-01] MEDS: Enoxaparin 40 mg Syringe SC SCH (09:46)
--- NOTE | 2017-09-01 11:13 | CP.PCM.PN ---
Subjective - Date & Time of Evaluation Date of Evaluation: 09/01/17 Time of Evaluation: 11:08 - Subjective Subjective: Pt awake,alert. Feeling better. Afebrile L knee: dressing changed small amount of bloody drainage drain d/c'd ALISTAIR reapplied Hg 8.9 cultures no growth to date POD#2 Awaiting medical eval Plan for rehab cont antibiotics as per Dr Watters Objective - Vital Signs/Intake and Output Vital Signs (last 24 hours): Temp Pulse Resp BP Pulse Ox 98.2 F 77 18 88/43 L 98 09/01/17 07:40 09/01/17 07:40 09/01/17 07:40 09/01/17 09:45 09/01/17 07:40 Intake and Output: 09/01/17 09/01/17 06:59 18:59 Output Total 900 Balance -900 - Medications Medications: Current Medications Acetaminophen (Tylenol 325mg Tab) 650 mg PO Q4 PRN PRN Reason: Fever 101 degrees fahrenheit Docusate Sodium (Colace) 100 mg PO BID [facility] Last Admin: 09/01/17 09:41 Dose: 100 mg Enoxaparin Sodium (Lovenox) 40 mg SC DAILY [facility] Last Admin: 09/01/17 09:46 Dose: 40 mg Furosemide (Lasix) 20 mg PO DAILY [facility] Last Admin: 09/01/17 09:45 Dose: Not Given Home Med (Patient's Own Inhalation Solution) 1 ml INH RQID [facility] Last Admin: 09/01/17 09:00 Dose: 1 ml Home Med (Tadalafil [Adcirca]) 20 mg PO DAILY [facility] Last Admin: 09/01/17 09:47 Dose: 20 mg Home Med (Bosentan [Tracleer]) 125 mg PO BID [facility] Last Admin: 09/01/17 09:45 Dose: 125 mg Hydromorphone HCl (Dilaudid) 0.5 mg IVP Q4H PRN PRN Reason: Pain, severe (8-10) Vancomycin/Sodium Chloride (Vancomycin 1 Gm/Ns 200 Ml) 1 gm in 200 mls @ 200 mls/hr IVPB Q12H [facility] Stop: 09/04/17 20:01 Last Admin: 09/01/17 08:31 Dose: 200 mls/hr Sodium Chloride (Sodium Chloride 0.9%) 1,000 mls @ 100 mls/hr IV .Q10H [facility] Stop: 09/01/17 19:29 Last Admin: 09/01/17 09:50 Dose: 100 mls/hr Multivitamins (Hexavitamin) 1 tab PO DAILY [facility] Last Admin: 09/01/17 09:41 Dose: 1 tab Oxycodone/Acetaminophen (Percocet 5/325 Mg Tab) 2 tab PO Q4H PRN PRN Reason: Pain, severe (8-10) Stop: 09/02/17 13:06 Warfarin Sodium (Coumadin) 5 mg PO 1800 [facility] Stop: 09/01/17 18:01 - Labs Labs: 09/01/17 06:20 09/01/17 06:20 PT 16.4 SECONDS (9.7-12.2) H 09/01/17 06:20 INR 1.4 09/01/17 06:20 APTT 54 SECONDS (21-34) H 08/30/17 07:23
--- NOTE | 2017-09-01 14:12 | CP.PCM.PN ---
Subjective - Date & Time of Evaluation Date of Evaluation: 09/01/17 Time of Evaluation: 14:12 - Subjective Subjective: CHIEF COMPLAINTS TODAY : AFEBRILE, VITAL SIGNS BP 88/49 .C/O POSTOPERATIVE PAIN LEFT KNEE. DENIES SOB. ROS. HEENT : N. Resp : No SOB wheezing, cough Cardio : No CP, PND orthopnea GI : No abd. 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 Musculoskel : N Ext. : Pedal pulses intact, no edema or calf pain S/P LT TKR -POSTOPERATIVE DRESSING/ANTHONY HEMORRHAGIC FLUID. Derm : N Psych : N. PE. Pt. is alert awake in no distress. V.S As noted in the chart Head ,ear nose,throat and eyes : Normal. Neck : Supple with normal carotids. Lungs: Clear air entry. Heart : S1 & S2 normal . . No murmur. S4 + Abd : Soft non tender with normal bowel sounds. Neuro : Moves all ext. with no localized deficit. Ext : No edema with intact pulses. Neg. calf tenderness S/P LT TKR -POSTOPERATIVE DRESSING/ANTHONY HEMORRHAGIC FLUID. Derm : No rashes or decubitus ulcer. Radiology/Labs . vANCO TROUGH 19.5 -OK wbc 10.2 H/H 8.9/25.8 PLT 144 CREATININE 1.1/bun 13 Gram stain body fluid -ve for 24 hours. Asssessment : postoperative-LT TKR S/P EXPLANTATION SPACER 08/30/17. ANEMIA. ATRIAL FIBRILLATION. HX PHT. OSTEOARTHRITIS. Plan : IV FLUIDS PER PMD. AWAIT CULTURES/ASPIRATE OR 08/30/17. Aspirate fluid 08/30/17 few PMNs, no organisms seen. Gram stain aspirate 08/30/17 left knee; WBC 1-5 high-power field/no organisms seen. CULTURE NEGATIVE FOR 24 HOURS. DECREASE iv VANCOMYCIN 750 MGEVERY 12 HOURLY.08/30/17. 09/02/17. fOLLOW-UP VANCO TROUGH LEVEL PRIOR TO THE FOURTH DOSE OF ABOVE fOLLOW-UP RENAL FUNCTIONS CLOSELY. PATIENT HAS A RIGHT UPPER ARM picc LINE IN PLACE SINCE 06/16/17. CATHETER CARE PRN WATCH H/H . Objective - Vital Signs/Intake and Output Vital Signs (last 24 hours): Temp Pulse Resp BP Pulse Ox 98.2 F 77 18 88/43 L 98 09/01/17 07:40 01/12/18 07:40 09/01/17 07:40 09/01/17 09:45 09/01/17 07:40 Intake and Output: 09/01/17 09/01/17 06:59 18:59 Output Total 900 Balance -900 - Medications Medications: Current Medications Acetaminophen (Tylenol 325mg Tab) 650 mg PO Q4 PRN PRN Reason: Fever 101 degrees fahrenheit Docusate Sodium (Colace) 100 mg PO BID [facility] Last Admin: 09/01/17 09:41 Dose: 100 mg Enoxaparin Sodium (Lovenox) 40 mg SC DAILY [facility] Last Admin: 09/01/17 09:46 Dose: 40 mg Furosemide (Lasix) 20 mg PO DAILY [facility] Last Admin: 09/01/17 09:45 Dose: Not Given Home Med (Patient's Own Inhalation Solution) 1 ml INH RQID [facility] Last Admin: 09/01/17 09:00 Dose: 1 ml Home Med (Tadalafil [Adcirca]) 20 mg PO DAILY [facility] Last Admin: 09/01/17 09:47 Dose: 20 mg Home Med (Bosentan [Tracleer]) 125 mg PO BID [facility] Last Admin: 09/01/17 09:45 Dose: 125 mg Hydromorphone HCl (Dilaudid) 0.5 mg IVP Q4H PRN PRN Reason: Pain, severe (8-10) Vancomycin/Sodium Chloride (Vancomycin 1 Gm/Ns 200 Ml) 1 gm in 200 mls @ 200 mls/hr IVPB Q12H [facility] Stop: 09/04/17 20:01 Last Admin: 09/01/17 08:31 Dose: 200 mls/hr Sodium Chloride (Sodium Chloride 0.9%) 1,000 mls @ 100 mls/hr IV .Q10H [facility] Stop: 09/01/17 19:29 Last Admin: 09/01/17 09:50 Dose: 100 mls/hr Multivitamins (Hexavitamin) 1 tab PO DAILY [facility] Last Admin: 09/01/17 09:41 Dose: 1 tab Oxycodone/Acetaminophen (Percocet 5/325 Mg Tab) 2 tab PO Q4H PRN PRN Reason: Pain, severe (8-10) Stop: 09/02/17 13:06 Warfarin Sodium (Coumadin) 5 mg PO 1800 KATH Stop: 09/01/17 18:01 - Labs Labs: 09/01/17 06:20 09/01/17 06:20 PT 16.4 SECONDS (9.7-12.2) H 09/01/17 06:20 INR 1.4 09/01/17 06:20 APTT 54 SECONDS (21-34) H 08/30/17 07:23 Assessment and Plan (1) S/P TKR (total knee replacement) Status: Acute (2) Atrial fibrillation Status: Acute (3) Osteoarthritis Status: Acute (4) PHT (pulmonary hypertension) Status: Chronic
[2017-09-02 07:16] LABS: HEMOGLOBIN 9.3 g/dL (12.0-18.0); MEAN CELL VOLUME 78.2 fL (80.0-94.0); MEAN CORPUSCULAR HEMOGLOBIN 26.8 pg (27.0-31.0); MEAN CORPUSCULAR HGB CONC 34.3 g/dL (33.0-37.0); MEAN PLATELET VOLUME 8.6 fL (7.2-11.7); RBC 3.46 Mil/uL (4.40-5.90); WHITE BLOOD COUNT 7.3 K/uL (4.8-10.8)
[2017-09-02 07:22] LABS: INR 1.2; PROTHROMBIN TIME 13.3 SECONDS (9.7-12.2)
[2017-09-02] MEDS ORDERED: Vancomycin 750mg/D5W 150 ml 150 ML IVPB SCH (07:30)
[2017-09-02 07:31] LABS: BLOOD UREA NITROGEN 13 mg/dL (9-20); CALCIUM 7.1 mg/dl (8.6-10.4); GFR AFRICAN-AMERICAN > 60; GFR NON-AFRICAN AMERICAN > 60
[2017-09-02 09:24] VITALS: RESP 18
[2017-09-02] MEDS: Enoxaparin 40 mg Syringe SC SCH (09:50)
[2017-09-02] MEDS: Multiple Vitamins Tab PO SCH (09:50)
--- NOTE | 2017-09-02 14:04 | CP.PCM.DIS ---
Provider - Provider Date of Admission: 08/30/17 05:56 Attending physician: Seth Abbott MD Time Spent in preparation of Discharge (in minutes): 5 Diagnosis - Discharge Diagnosis (1) S/P TKR (total knee replacement) Status: Acute (2) PHT (pulmonary hypertension) Status: Chronic (3) Acute blood loss anemia Status: Acute Hospital Course - Lab Results Lab Results: Micro Results 08/30/17 09:02 Other: Please Indicate Gram Stain - Final 08/30/17 09:02 Other: Please Indicate Body Fluid Culture - Preliminary NO GROWTH AFTER 2 DAYS 08/30/17 09:03 Knee Left Gram Stain - Final Most Recent Lab Values WBC 7.3 K/uL (4.8-10.8) 09/02/17 07:08 RBC 3.46 Mil/uL (4.40-5.90) L 09/02/17 07:08 Hgb 9.3 g/dL (12.0-18.0) L 09/02/17 07:08 Hct 27.0 % (35.0-51.0) L 09/02/17 07:08 MCV 78.2 fL (80.0-94.0) L 09/02/17 07:08 MCH 26.8 pg (27.0-31.0) L 09/02/17 07:08 MCHC 34.3 g/dL (33.0-37.0) 09/02/17 07:08 RDW 19.0 % (11.5-14.5) H 09/02/17 07:08 Plt Count 134 K/uL (130-400) 09/02/17 07:08 MPV 8.6 fL (7.2-11.7) 09/02/17 07:08 Differential Comment 09/02/17 07:08 PT 13.3 SECONDS (9.7-12.2) H 09/02/17 07:08 INR 1.2 09/02/17 07:08 APTT 54 SECONDS (21-34) H 08/30/17 07:23 Sodium 133 mmol/L (132-148) 09/02/17 07:08 Potassium 3.9 mmol/L (3.6-5.2) 09/02/17 07:08 Chloride 103 mmol/L (98-107) 09/02/17 07:08 Carbon Dioxide 29 mmol/L (22-30) 09/02/17 07:08 Anion Gap 5 (10-20) L 09/02/17 07:08 BUN 13 mg/dL (9-20) 09/02/17 07:08 Creatinine 1.0 mg/dL (0.8-1.5) 09/02/17 07:08 Est GFR ( Amer) > 60 09/02/17 07:08 Est GFR (Non-Af Amer) > 60 09/02/17 07:08 Random Glucose 90 mg/dL (75-110) 09/02/17 07:08 Calcium 7.1 mg/dl (8.6-10.4) L 09/02/17 07:08 Vancomycin Trough 19.5 ug/mL (5.0-10.0) H 09/01/17 20:33 RPR Nonreactive (NONREACTIVE) 08/31/17 10:14 Hepatitis A IgM Ab Negative (NEGATIVE) 08/31/17 10:14 Hep Bs Antigen Negative (NEGATIVE) 08/31/17 10:14 Hep Bs Antibody Negative (NEGATIVE) 08/31/17 10:29 Hep B Core IgM Ab Negative (NEGATIVE) 08/31/17 10:14 Hepatitis C Antibody Negative (NEGATIVE) 08/31/17 10:14 HIV 1&2 Antibody Screen Negative (NEGATIVE) 08/31/17 10:29 Blood Type O POSITIVE 08/30/17 07:23 Antibody Screen Positive 08/30/17 07:23 Antibody Identification Cancelled 08/30/17 07:23 - Hospital Course Hospital Course: 71M 4 months s/p explant and antibiotic spacer placement presents for revision TKR. Intraoperative specimens showed no current infection suspected, and proceeded with revision TKR. Patient tolerated procedure well. Patients post operative course was complicated by acute blood loss anemia, for which patient received PRBC transfusion of 2 units. Patient tolerated PT/OT well. Patient received VTE prophylaxis in the form of lovenox 40mg SQ q24h and venodynes. Patient was instructed to maintain knee immobilizer at night, to remove during the day, and instructed patient to continue aggressive ROM of the knee. Coumadin was also resumed POD#0 and rehab was given instructions for daily INR and to continue coumadin and lovenox until INR therapeutic then d/c lovenox (pt with hx PE). PT was discharged to [facility], and continued on home medications as well as the lovenox/coumadin, and vancomycin. Patient was WBAT LLE, ambulating with walker, and given instructions for daily dressing changes and to f/u Dr. Abbott within 2 weeks. Interoperative cultures final negative for growth. Patient also instructed to f/u with Dr. Watters in 2 weeks. Discharge Exam - Head Exam Head Exam: NORMAL INSPECTION Discharge Plan - Discharge Medications Prescriptions: Vancomycin 750mg/D5W 150 ml [Vancocin 750MG/D5W 150 ML] 750 mg IV Q12H #60 ml - Follow Up Plan Condition: GOOD Disposition: REHAB FACILITY/REHAB UNIT Instructions: Warfarin (By mouth), Enoxaparin (By injection), Negative Pressure Wound Therapy (DC), Knee Replacement (DC) Referrals: Mayra Watters MD [Staff Provider] - (f/u 2 weeks call for appt) Seth Abbott MD [Staff Provider] - 09/14/17 (remove mark wound vac dressing on tuesday 09/05 and apply dry sterile dressing and fatimah bandage WBAT f/u 09/14 call for follow up appointment continue lovenox and coumadin until INR>2.0 then discontinue lovenox)
[2017-09-02 16:13] VITALS: BP 90/47; PULSE 71; TEMP 97.9; O2SAT 95
== END 2017-09-02 18:46 | DRG 467 ==
LOC: C.9S 05:56 → C.6T 17:10
PROVIDERS: ADMIT Orthopaedic Surgery; ATTEND Orthopaedic Surgery
PROC: 0SWD0JZ Revision of Synthetic Substitute in Left Knee Joint, Open Approach (ICD-10-PCS; principal; 2017-08-30 07:55)
PROC: 30233N1 Transfusion of Nonautologous Red Blood Cells into Peripheral Vein, Percutaneous Approach (ICD-10-PCS; 2017-08-31)
DX: T84.54XA Infection and inflammatory reaction due to internal left knee prosthesis, initial encounter (principal); D62 Acute posthemorrhagic anemia; I27.20 Pulmonary hypertension, unspecified; I48.91 Unspecified atrial fibrillation; Z86.711 Personal history of pulmonary embolism; Y83.8 Other surgical procedures as the cause of abnormal reaction of the patient, or of later complication, without mention of misadventure at the time of the procedure; M19.90 Unspecified osteoarthritis, unspecified site